=== PATIENT | male | born 1945 | race Caucasian/White ===

== ENCOUNTER 2018-08-12 11:46 | Inpatient (IN) ==
--- NOTE | 2018-08-12 11:56 | Emergency Department Note ---
ED Disposition Clinical Impression: Hypoxia, Pulmonary nodules Pneumonia Qualifiers: Pneumonia type: due to unspecified organism Laterality: bilateral Lung location: unspecified part of lung Qualified Code(s): J18.9 - Pneumonia, unspecified organism Disposition: Admitted As Inpatient Condition on Discharge: Fair Referrals: Provider,Referral, [Primary Care Provider] - - Critical Care Critical Care Time: No Attestation: On , the high probability of a clinically significant, sudden or life threatening deterioration of the following system(s) required my full and direct attention, intervention and personal management. The time I documented below is in addition to time spent performing reported procedures but includes the following listed in this critical care notation. Medical Decision Making - [place] Inquiry Pt receiving controlled substance: No Vital Signs: 08/12/18 11:47 08/12/18 12:15 08/12/18 12:17 Temperature 98.2 F Temperature Source Oral Pulse Rate [Right Radial] 79 77 Respiratory Rate 22 18 Blood Pressure [Right Arm] 125/72 133/69 Blood Pressure Mean [Right Arm] 89 90 Blood Pressure Source [Right Arm] Automatic Cuff Automatic Cuff Blood Pressure Position [Right Arm] Sitting Sitting 02 Sat by Pulse Oximetry 83 L 83 L 94 L Oxygen Delivery Method Room Air Room Air Nasal Cannula Oxygen Flow Rate (LPM) 2 2 08/12/18 12:30 08/12/18 13:00 Temperature Temperature Source Pulse Rate [Right Radial] 77 76 Respiratory Rate Blood Pressure [Right Arm] 133/69 115/63 Blood Pressure Mean [Right Arm] 90 80 Blood Pressure Source [Right Arm] Blood Pressure Position [Right Arm] 02 Sat by Pulse Oximetry 93 L 94 L Oxygen Delivery Method Nasal Cannula Oxygen Flow Rate (LPM) - Lab Data Lab Results 08/12/18 12:05: WBC 12.8 H, RBC 3.56 L, Hgb 10.4 L, Hct 32.0 L, MCV 89.8, MCH 29.1, MCHC 32.4, RDW 17.2, Plt Count 391, MPV 6.9 L, Neut % (Auto) 74.1, Lymph % (Auto) 10.3, [place] % (Auto) 6.6, Eos % (Auto) 8.8, Baso % (Auto) 0.2, Neut # ( Auto) 9.5 H, Lymph # (Auto) 1.3, [place] # (Auto) 0.9, Eos # (Auto) 1.1 H, Baso # (Auto) 0.0 08/12/18 12:05: Sodium 142, Potassium 3.8, Chloride 107, Carbon Dioxide 24, Anion Gap 14.8, BUN 19 H, Creatinine 1.44 H, Estimated Creat Clear 48, Estimated GFR 48 L, Est GFR ( Amer) 58 L, Glucose 102, Calcium 9.0, Total Bilirubin 0.4, AST 16, ALT 23, Alkaline Phosphatase 72, Troponin I < 0.02, Total Protein 6.7, Albumin 3.0 L, Globulin 3.7 H, Albumin/Globulin Ratio 0.8 L 08/12/18 12:05: Lactate 0.8 Result diagrams: 08/12/18 12:05 08/12/18 12:05 Orders (Tests/Meds): ED MEDICATIONS Generic Name Dose Route Start Last Admin Trade Name Freq PRN Reason Stop Dose Admin Azithromycin 500 mg/ Sodium 250 mls @ 250 mls/hr 08/12/18 13:30 Chloride IV 08/26/18 13:29 Q24H ABBIE Protocol Ceftriaxone Sodium 1 gm/ 50 mls @ 100 mls/hr 08/12/18 13:30 Sodium Chloride IV 08/26/18 13:29 Q24H ABBIE Protocol ORDERS Category Date Time Status XR chest 2V Stat Exams 08/12/18 11:57 Taken BNP [B-Type Natriuretic Peptide] Stat Lab 08/12/18 12:17 Ordered Blood Culture Stat Micro 08/12/18 12:15 Ordered - Radiology Data #1 Image(s): Chest Image Reviewed: Yes I reviewed the patient's radiology image, Yes I discussed the image results w/the radiologist Compared to 07/28/2018, worse patchy infiltrates bilaterally. More prominent peripherally and more prominent in the right lung. - ECG Data Tracing #1 EKG interpreted by eDan Frazier MD: Rhythm: sinus Rate: 79 [place]: normal Ectopy: none Conduction: normal ST Segment Changes: none T Wave Changes: none Q Waves: none No evidence of acute ischemia or injury Normal electrocardiogram - Physician Consults Physician Consulted: Xiomara Time: 13:35 Reason -: Admission Comment/Response: Agrees to admit the patient to the hospital. We discussed the patient's clinical information, including history, exam, laboratory and radiology results and ED course. Per hospital procedure, I will write temporary bridge inpatient orders on the patient. Specific orders requested by the admitting physician: cont tx for pneumonia Medical Decision Narrative: Review of previous visits shows that he was hypoxic when he presented on his las t visit, pulse ox 85%. He had a CT angiogram that was negative for pulmonary embolism: ------IMPRESSION-------- 1. Scattered small pulmonary nodules bilaterally. ..There are few New pulmonary nodules bilaterally vs 2016, along with some several previously existing pulmonary nodules and chronic changes. .... One of the larger new nodule at posterior RLL right lung base now measuring 9 mm in size.This size warrants further evaluation. CT chest or consideration of histologic sampling .... Suggest pulmonary consult, for workup of these nodules along with other findings discussed below..... 2. Diffuse coarsening and Increased lung markings bilaterally with compared to prior CT 2017.: ... Diffuse interstitial coarsening & mild increased pulmonary vascularity. (. Could reflect background of mild vascular congestion superimposed upon chronic changes .Warrants correlation.) ... Particularly note the Additional Patchy interstitial & alveolar opacities bilaterally, most evident about the periphery of the lung [place].. Superimposed upon chronic lung changes.;... These may indeed reflect scattered new small areas of ongoing pneumonia/pneumonitis.. Correlation required Dictated By: Oswald Fonseca Signed By: <Electronically signed by Oswald Fonseca in OV> 08/02/18 1357 General Adult HPI - General Chief complaint: Shortness of Breath/Dyspnea Stated complaint: SOA Time Seen by Provider: 08/12/18 12:08 Mode of Arrival: EMS Limitations: No Limitations Description of Symptoms (Recalled from ER Triage Doc. by RN): Pt reports became more SOA than normal while making his coffee this morning. Pt reports he was treated for pneumonia in July of this year and reports he doens't think he got over it. Pt reports he was treated with Levaquin and took all of his medication. Pt also reports feeling tired "everyday" - History of Present Illness HPI narrative: Brought in by ambulance for trouble breathing. States that he was seen in the emergency department here on 07/29/2018 for shortness of breath and diagnosed with pneumonia. Discharged on antibiotics and an inhaler. States he does not think he ever got over it. Has been short of breath ever since then. Recently has also become very fatigued and weak. Today he says he also got very dizzy while making coffee. Has not had any follow-up since he was seen here. He is a former smoker, quit many years ago. Occasional chest pains in his left anterior chest, none currently. He says he did not have a cough when he was seen here on 07/29/2018, but now has a cough for the past couple of days. No sputum, hemoptysis, or fever. No vomiting or diarrhea. - Related Data Home Medications Medication Instructions Recorded Confirmed Atorvastatin Calcium [Atorvastatin 10 mg PO DAILY 07/28/18 08/12/18 10mg Tab] Celecoxib 200 mg PO DAILY 07/28/18 08/12/18 Fluticasone Propionate 16 gm * DAILY 07/28/18 07/28/18 Levobunolol HCl [Betagan 0.5% 10mL 0.5 % EYE-BOTH DAILY 07/28/18 07/28/18 opth nicolette] Metoprolol Tartrate 50 mg PO DAILY 07/28/18 08/12/18 Sertraline HCl [Zoloft 50mg tablet] 50 mg PO DAILY 07/28/18 08/12/18 metHOTREXate sodium [metHOTREXate 17.5 mg PO WEEKLY 07/28/18 08/12/18 2.5mg Tablet] Aspirin [Aspir-Low] 81 mg PO DAILY 08/12/18 08/12/18 Esomeprazole Magnesium 40 mg PO DAILY 08/12/18 08/12/18 predniSONE [Prednisone 5mg 5 mg PO DAILY 08/12/18 08/12/18 Tab] Previous Rx's Medication Instructions Recorded Albuterol Sulfate [Albuterol HFA 2 puffs IH Q6HP PRN #1 inh 07/28/18 Inhaler] Allergies Allergy/AdvReac Type Severity Reaction Status Date / Time aspirin [ASPIRIN] AdvReac Mild Verified 08/12/18 11:59 [facility] History - Hepatitis A Screen Drug use history?: No High risk sexual behaviors?: No History of sexually transmitted infection?: No Currently employed?: No Childcare worker?: No Do you have indoor plumbing?: Yes Do you have electricity?: Yes Attestation statement:: This patient has been screened for Hepatitis A risk factors. I have reviewed the patient's past medical history: Yes Medical History: Reports:: Chronic Obstructive Pulmonary Disease (COPD), Myocardial Infarction Other Surgeries: Yes: CABG Amputation: No Fractures: No - Social History Smoking Status: Former smoker Alcohol Intake: never Alcohol Intake Frequency:: 0-2 drinks per day Substance Use Type: denies use Occupational Status: retired Housing: apartment Household Members: none Family Hx:: No significant family history ROS Obtained: Yes All systems reviewed & no additional complaints - Constitutional Constitutional: Reports fatigue, Denies fever(s) - Cardiovascular Cardiovascular: Reports chest pain, Denies pedal edema - Respiratory Respiratory: Yes cough, Yes non-productive cough, Yes dyspnea, No coughing up blood - Gastrointestinal Gastrointestingal: Denies: abdominal pain, diarrhea, vomiting Physical Exam - General General appearance: alert, in no apparent distress - Head Head exam: atraumatic, normocephalic - Eye Eye exam: Present: normal appearance, EOMI - ENT ENT exam: Present: mucous membranes moist - Neck Neck exam: Present: normal inspection, trachea midline - Chest Chest inspection: Present: normal inspection, symmetric chest wall rise - Respiratory Respiratory exam: Present: normal lung sounds bilaterally. Absent: respiratory distress, accessory muscle use - Cardiovascular Cardiovascular exam: Present: regular rate, normal rhythm, normal heart sounds - Abdominal Exam Abdominal exam: Present: soft. Absent: distention, tenderness, guarding - Extremities Exam Extremities exam: Present: normal inspection. Absent: pedal edema, calf tenderness - Neurological Exam Neurological exam: Present: alert, oriented X3 - Psychiatric Psychiatric exam: Present: normal affect, normal mood - Skin Skin exam: Present: warm, dry
[2018-08-12 12:23] LABS: Basophils % 0.2 % (0.1-2.0); Eosinophils # 1.1 K/mm3 (0.0-0.4); Eosinophils % 8.8 % (0.1-12.0); Hemoglobin 10.4 g/dL (14.1-18.0); Lymphocytes # 1.3 K/mm3 (0.7-4.5); Lymphocytes % 10.3 % (10-50); Mean Corpuscular HGB Conc 32.4 g/dL (31.8-35.4); Mean Corpuscular Hemoglobin 29.1 pg (27.0-31.2); Mean Corpuscular Volume 89.8 fl (80-94); Mean Platelet Volume 6.9 fl (7.4-10.4); Monocytes # 0.9 K/mm3 (0.1-1.0); Monocytes % 6.6 % (1.7-9.3); Neutrophils # 9.5 K/mm3 (1.8-7.8); Neutrophils % 74.1 % (37.0-80.0); Platelet Count 391 K/mm3 (142-424); Red Blood Count 3.56 M/mm3 (4.60-6.20); Red Cell Distribution Width 17.2 % (11.5-17.5); White Blood Count 12.8 K/mm3 (4.8-10.8)
[2018-08-12 12:36] LABS: Alanine Aminotransferase 23 U/L (12-78); Albumin/Globulin Ratio 0.8 (1.1-1.8); Alkaline Phosphatase 72 U/L (46-116); Anion Gap 14.8 mEq/L (5-15); Aspartate Amino Transferase 16 U/L (15-37); Bilirubin,Total 0.4 mg/dL (0.2-1.0); Blood Urea Nitrogen 19 mg/dL (7-18); Carbon Dioxide 24 mmol/L (21.0-32.0); Chloride 107 mmol/L (98-107); Globulin 3.7 gm/dl (1.3-3.2); Glucose 102 mg/dL (74-106); Potassium 3.8 mmoL/L (3.5-5.1); Sodium 142 mmol/L (136-145); Total Protein,Serum 6.7 gm/dL (6.4-8.2)
--- NOTE | 2018-08-12 14:49 | Pharmacy Consult Notes ---
[facility] Pharmacy VTE Monitoring - Patient Demographics Admission date: 08/12/18 Report Date: 08/12/18 Time: 14:49 Allergies/Adverse Reactions: Patient Allergies aspirin [ASPIRIN] Adverse Reaction (Mild, Verified 08/12/18 11:59) Height: 1.8 m Weight: 70.789 kg Patient Problems: Current Active Problems (Updated 08/12/18 @ 13:36 by Dean Frazier MD) Pneumonia (Acute) Hypoxia (Acute) Pulmonary nodules (Acute) - VTE Risk Labs: VTE Related Lab Results Hgb 10.4 g/dL (14.1-18.0) L 08/12/18 12:05 Hct 32.0 % (42.0-52.0) L 08/12/18 12:05 Plt Count 391 K/mm3 (142-424) 08/12/18 12:05 BUN 19 mg/dL (7-18) H 08/12/18 12:05 Creatinine 1.44 mg/dL (0.70-1.30) H 08/12/18 12:05 Estimated Creat Clear 48 mL/min (50-200) 08/12/18 12:05 - Prophylaxis VTE Prophylaxis Ordered?: Yes Types of VTE Prophylaxis: TEDS Knee High Location of Applied Device: Bilateral Lower Extremeties
--- NOTE | 2018-08-12 16:27 | History & Physical Report ---
*Admission Date: 08/12/18 <Herminia Araujo - 08/12/18 16:27> *Chief complaint: SOA, cough <VanStuarta 08/12/18 16:27> *History of present illness: Mr. Ruiz is a 73-year-old male who states he has been feeling poorly for a few weeks. He was seen in the office of [facility] of the end of June and diagnosed with a maxillary sinusitis and a pulmonary nodule. He was started on Levaquin and was continued on his prednisone. A CT of the chest was ordered. He states he began coughing and feeling poorly and presented to the emergency room on 07/28/18. He had a chest x- ray showing a subtle area of density at the periphery of the lung [place]. Radiology felt it was difficult to exclude an infiltrate. They felt the small areas of nodularity appeared stable. He had a CTA at this time as well which showed scattered small pulmonary nodules bilaterally. There were a few new pulmonary nodules compared to a 2016 image. Radiology recommended pulmonary consult. There was also diffuse coarsening and increased lung markings bilaterally. They felt this could indicate mild vascular congestion versus areas of ongoing pneumonia/pneumonitis. Polly did discuss the CT with the patient and was going to schedule a pulmonology follow-up. He states he was given antibiotics in the emergency room and was sent home on antibiotics. He began feeling better until the past 4-5 days when he developed shortness of air and a nonproductive cough. He presented back to the emergency room and his white blood cell count was elevated, he was mildly dehydrated, and he appeared to have a pneumonia. He was therefore admitted for further evaluation and treatment. <Herminia Araujo - 08/12/18 16:48> [facility] History Medical History: Reports:: Chronic Obstructive Pulmonary Disease (COPD), Coronary Artery Disease, Depression, Gastroesophageal Reflux Disease(GERD), Hyperlipidemia, Hypertension, Myocardial Infarction Denies:: Diabetes Mellitus Type 1, Diabetes Mellitus Type 2 <Herminia Araujo 08/12/18 16:48> *Have you ever received a pneumonia vaccine?: Yes <Herminia Araujo 08/12/18 16:27> *Have you received a flu vaccine this season?: Yes <Herminia Araujo 08/12/18 16:27> Other Medical History: Reports: Anemia, Cataracts, Glaucoma, Other (RA, colon polyps) <Herminia Araujo 08/12/18 16:48> Laterality Cases: Right: Cataract <Herminia Araujo 08/12/18 16:48> Other Surgeries: Yes: CABG, Colonoscopy, Other (right hand, right elbow) <Herminia Araujo 08/12/18 16:48> Amputation: No <Herminia Araujo 08/12/18 16:27> Fractures: No <Herminia Araujo 08/12/18 16:27> - *Social History Educational Level: Attended High School <Herminia Araujo 08/12/18 16:27> Smoking Status: Former smoker <Herminia Araujo 08/12/18 16:27> Tobacco Type: cigarettes <Herminia Araujo 08/12/18 16:27> Alcohol Intake: former <Herminia Araujo 08/12/18 16:27> Alcohol Intake Frequency:: other <Herminia Araujo 08/12/18 16:27> Substance Use Type: denies use <Herminia Araujo 08/12/18 16:27> *Occupational Status:: retired <Herminia Araujo 08/12/18 16:27> Housing: apartment <Herminia Araujo 08/12/18 16:27> Household Members: none <Herminia Araujo 08/12/18 16:27> *Travel in the last 8 weeks: None <Herminia Araujo 08/12/18 16:27> - Psychiatric History Expresses thoughts of harming self/others: None <Herminia Araujo 08/12/18 16:27> Suicide Plan Description: No Plan <Herminia Araujo 08/12/18 16:27> Family Hx:: Cancer, Heart Attack <Herminia Araujo 08/12/18 16:48> Review of Systems - Constitutional Reports fatigue, Reports weakness, Denies fever(s) <Herminia Araujo 08/12/18 16:27> - Eyes Denies blurry vision, Denies double vision <Herminia Araujo 08/12/18 16:27> - ENT Reports nasal congestion, Denies sore throat <Herminia Araujo 08/12/18 16:27> - *Cardiovascular Denies chest pain, Denies leg swelling, Denies rapid, pounding, or irregular heartbeat <Herminia Araujo 08/12/18 16:27> - *Respiratory Reports cough, Reports shortness of breath <Herminia Araujo 08/12/18 16:27> - *Gastrointestinal Denies abdominal pain, Denies loose stools, Denies nausea, Denies vomiting <Herminia Araujo 08/12/18 16:27> - *Genitourinary Denies difficulty urinating, Denies painful urination <Herminia Araujo 08/12/18 16:27> - *Musculoskeletal Denies joint pain, Denies muscle weakness <[facility] 08/12/18 16:27> - *Neurologic Reports weakness, Denies headache(s), Denies dizziness <Herminia Araujo 08/12/18 16:27> Meds Home Medications Medication Instructions Recorded Confirmed Type Albuterol Sulfate [Albuterol HFA 2 puffs IH Q6HP PRN #1 inh 07/28/18 08/12/18 Rx Inhaler] Atorvastatin Calcium [Atorvastatin 10 mg PO HS 07/28/18 08/12/18 History 10mg Tab] Celecoxib 200 mg PO DAILY 07/28/18 08/12/18 History Fluticasone Propionate 1 spray NS BID 07/28/18 08/12/18 History Levobunolol HCl [Betagan 0.5% 10mL 1 drop EYE-BOTH BID 07/28/18 08/12/18 History opth nicolette] Metoprolol Tartrate 50 mg PO BID 07/28/18 08/12/18 History Sertraline HCl [Zoloft 50mg tablet] 50 mg PO DAILY 07/28/18 08/12/18 History metHOTREXate sodium [metHOTREXate 17.5 mg PO WEEKLY 07/28/18 08/12/18 History 2.5mg Tablet] Aspirin [Aspir-Low] 81 mg PO DAILY 08/12/18 08/12/18 History Esomeprazole Magnesium 40 mg PO DAILY 08/12/18 08/12/18 History Folic Acid [Folic Acid 1mg tablet] 1 mg PO DAILY 08/12/18 08/12/18 History Loratadine [Claritin 10mg Tablet] 10 mg PO DAILY 08/12/18 08/12/18 History Montelukast Sodium [Montelukast 10 mg PO HS 08/12/18 08/12/18 History 10mg Tab] predniSONE [Prednisone 5mg 5 mg PO DAILY 08/12/18 08/12/18 History Tab] <Jean Solano - 08/12/18 18:08> Allergies Allergy/AdvReac Type Severity Reaction Status Date / Time aspirin [ASPIRIN] AdvReac Mild Verified 08/12/18 11:59 <Jean Solano - 08/12/18 18:08> Exam Vital signs and Labs for Last 24 Hours: Temp Pulse Resp BP Pulse Ox 97.9 F 81 18 127/62 95 08/12/18 16:00 08/12/18 16:00 08/12/18 16:00 08/12/18 16:00 08/12/18 16:00 Laboratory Results - last 24 hr 08/12/18 12:05: WBC 12.8 H, RBC 3.56 L, Hgb 10.4 L, Hct 32.0 L, MCV 89.8, MCH 29.1, MCHC 32.4, RDW 17.2, Plt Count 391, MPV 6.9 L, Neut % (Auto) 74.1, Lymph % (Auto) 10.3, [place] % (Auto) 6.6, Eos % (Auto) 8.8, Baso % (Auto) 0.2, Neut # (Auto) 9.5 H, Lymph # (Auto) 1.3, [place] # (Auto) 0.9, Eos # (Auto) 1.1 H, Baso # (Auto) 0.0 08/12/18 12:05: Sodium 142, Potassium 3.8, Chloride 107, Carbon Dioxide 24, Anion Gap 14.8, BUN 19 H, Creatinine 1.44 H, Estimated Creat Clear 48, Estimated GFR 48 L, Est GFR ( Amer) 58 L, Glucose 102, Calcium 9.0, Total Bilirubin 0.4, AST 16, ALT 23, Alkaline Phosphatase 72, Troponin I < 0.02, Total Protein 6.7, Albumin 3.0 L, Globulin 3.7 H, Albumin/Globulin Ratio 0.8 L 08/12/18 12:05: Lactate 0.8 08/12/18 12:05: B-Natriuretic Peptide 295 H <Jean Solano - 08/12/18 18:08> Temp Pulse Resp BP Pulse Ox 98.1 F 78 18 119/72 94 L 08/12/18 14:15 08/12/18 14:15 08/12/18 14:15 08/12/18 14:15 08/12/18 14:00 Laboratory Results - last 24 hr 08/12/18 12:05: WBC 12.8 H, RBC 3.56 L, Hgb 10.4 L, Hct 32.0 L, MCV 89.8, MCH 29.1, MCHC 32.4, RDW 17.2, Plt Count 391, MPV 6.9 L, Neut % (Auto) 74.1, Lymph % (Auto) 10.3, [place] % (Auto) 6.6, Eos % (Auto) 8.8, Baso % (Auto) 0.2, Neut # (Auto) 9.5 H, Lymph # (Auto) 1.3, [place] # (Auto) 0.9, Eos # (Auto) 1.1 H, Baso # (Auto) 0.0 08/12/18 12:05: Sodium 142, Potassium 3.8, Chloride 107, Carbon Dioxide 24, Anion Gap 14.8, BUN 19 H, Creatinine 1.44 H, Estimated Creat Clear 48, Estimated GFR 48 L, Est GFR ( Amer) 58 L, Glucose 102, Calcium 9.0, Total Bilirubin 0.4, AST 16, ALT 23, Alkaline Phosphatase 72, Troponin I < 0.02, Total Protein 6.7, Albumin 3.0 L, Globulin 3.7 H, Albumin/Globulin Ratio 0.8 L 08/12/18 12:05: Lactate 0.8 08/12/18 12:05: B-Natriuretic Peptide 295 H <Herminia Araujo - 08/12/18 16:27> I & O for Last 24 hours: Intake & Output 08/10/18 08/11/18 08/12/18 08/13/18 11:59 11:59 11:59 11:59 Intake Total 290 / 290 Balance 290 / 290 Weight 168 lb 156 lb 1 oz <Jean Solano - 08/12/18 18:08> Intake & Output 08/10/18 08/11/18 08/12/18 08/13/18 11:59 11:59 11:59 11:59 Intake Total 50 / 50 Balance 50 / 50 Weight 168 lb 156 lb 1 oz <[facility] 08/12/18 16:27> - Constitutional no acute distress <[facility] 08/12/18 16:27> - *Routine HEENT Exam Head: Present: normocephalic <[facility] 08/12/18 16:48> Eye: Present: EOMI, PERRL [facility] 08/12/18 16:48> ENT: Present: mucous membranes dry <[facility] 08/12/18 16:48> - *Routine Neck Exam Present: supple. Absent: lymphadenopathy [facility] 08/12/18 16:48> - *Routine Respiratory Exam Present: decreased breath sounds. Absent: wheezes <[facility] 08/12/18 16:48> - *Routine Cardiovascular Exam Present: RRR <[facility] 08/12/18 16:48> - *Routine Abdominal Exam Present: soft, normoactive bowel sounds. Absent: tenderness <[facility] 08/12/18 16:48> - *Routine Extremities Exam Absent: cyanosis, clubbing, edema <[facility] 08/12/18 16:48> - *Routine Skin Exam Present: warm. Absent: rash <[facility] 08/12/18 16:48> - *Routine Neurological Exam Present: alert, oriented X3 <[facility] 08/12/18 16:48> H&P: Result - Impressions CXR - pending <[facility] 08/12/18 16:48> Assessment and Plan (1) Pneumonia Current visit: Yes Status: Acute Qualifiers: Pneumonia type: due to unspecified organism Laterality: bilateral Lung location: unspecified part of lung Qualified Code(s): J18.9 - Pneumonia, unspecified organism Category: Medical Code(s): J18.9 - Pneumonia, unspecified organism (2) Pulmonary nodules Current visit: Yes Status: Acute Category: Medical Code(s): R91.8 - Other nonspecific abnormal finding of lung field (3) Hypoxia Current visit: Yes Status: Acute Category: Medical Code(s): R09.02 - Hypoxemia (4) Rheumatoid arthritis Current visit: Yes Status: Chronic Category: Medical Code(s): M06.9 - Rheumatoid arthritis, unspecified (5) Hypertension Current visit: Yes Status: Chronic Category: Medical Code(s): I10 - Essential (primary) hypertension (6) Hyperlipemia Current visit: Yes Status: Chronic Category: Medical Code(s): E78.5 - Hyperlipidemia, unspecified (7) Coronary artery disease Current visit: Yes Status: Chronic Category: Medical Code(s): I25.10 - Atherosclerotic heart disease of [place] coronary artery without angina pectoris <Herminia Araujo - 08/12/18 16:40> (1) Pneumonia Current visit: Yes Status: Acute Qualifiers: Pneumonia type: due to unspecified organism Laterality: bilateral Lung location: unspecified part of lung Qualified Code(s): J18.9 - Pneumonia, unspecified organism Category: Medical Code(s): J18.9 - Pneumonia, unspecified organism (2) Pulmonary nodules Current visit: Yes Status: Acute Category: Medical Code(s): R91.8 - Other nonspecific abnormal finding of lung field (3) Hypoxia Current visit: Yes Status: Acute Category: Medical Code(s): R09.02 - Hypoxemia (4) Rheumatoid arthritis Current visit: Yes Status: Chronic Category: Medical Code(s): M06.9 - Rheumatoid arthritis, unspecified (5) Hypertension Current visit: Yes Status: Chronic Category: Medical Code(s): I10 - Essential (primary) hypertension (6) Hyperlipemia Current visit: Yes Status: Chronic Category: Medical Code(s): E78.5 - Hyperlipidemia, unspecified (7) Coronary artery disease Current visit: Yes Status: Chronic Category: Medical Code(s): I25.10 - Atherosclerotic heart disease of [place] coronary artery without angina pectoris (8) Chronic steroid use Current visit: Yes Status: Acute Category: Medical <Jean Solano - 08/12/18 18:08> - Assessment and plan all Dx Assessment and Plan for all problems:: Patient seen and examined. He appears comfortable. Will order sputum culture and check Mycoplasma antigen. Due to his chronic steroid use, will escalate antibiotics to Cefepime in place of Rocephin. <Jean Solano - 08/12/18 18:08> The patient has been started on abx, oxygen, nebs, and some of his home medications. Will discuss further care with Dr. Solano. <Herminia Araujo - 08/12/18 16:48>
[2018-08-13 06:46] LABS: Basophils % 0.2 % (0.1-2.0); Eosinophils # 0.9 K/mm3 (0.0-0.4); Eosinophils % 7.7 % (0.1-12.0); Hematocrit 31.8 % (42.0-52.0); Hemoglobin 10.4 g/dL (14.1-18.0); Lymphocytes # 1.9 K/mm3 (0.7-4.5); Lymphocytes % 16.8 % (10-50); Mean Corpuscular HGB Conc 32.6 g/dL (31.8-35.4); Mean Corpuscular Hemoglobin 29.4 pg (27.0-31.2); Mean Corpuscular Volume 90.3 fl (80-94); Mean Platelet Volume 6.9 fl (7.4-10.4); Monocytes # 0.5 K/mm3 (0.1-1.0); Monocytes % 4.6 % (1.7-9.3); Neutrophils % 70.7 % (37.0-80.0); Platelet Count 381 K/mm3 (142-424); Red Blood Count 3.53 M/mm3 (4.60-6.20); Red Cell Distribution Width 17.1 % (11.5-17.5); White Blood Count 11.3 K/mm3 (4.8-10.8)
--- NOTE | 2018-08-13 08:37 | Progress Note ---
Internal Medicine - PN: Subj *Date: 08/13/18 *Time: 09:16 Interval history: Generally does not feel well. C/o general malaise, cough, arthritic pain, SOA. Had an episode of [place] with vomiting during the night. No nausea this AM. Exam Vital signs and Labs for Last 24 Hours: Temp Pulse Resp BP Pulse Ox 98.5 F 90 18 109/61 L 98 08/13/18 04:00 08/13/18 06:51 08/13/18 04:00 08/13/18 04:00 08/13/18 08:00 Laboratory Results - last 24 hr 08/12/18 12:05: WBC 12.8 H, RBC 3.56 L, Hgb 10.4 L, Hct 32.0 L, MCV 89.8, MCH 29.1, MCHC 32.4, RDW 17.2, Plt Count 391, MPV 6.9 L, Neut % (Auto) 74.1, Lymph % (Auto) 10.3, Webb % (Auto) 6.6, Eos % (Auto) 8.8, Baso % (Auto) 0.2, Neut # (Auto) 9.5 H, Lymph # (Auto) 1.3, Webb # (Auto) 0.9, Eos # (Auto) 1.1 H, Baso # (Auto) 0.0 08/12/18 12:05: Sodium 142, Potassium 3.8, Chloride 107, Carbon Dioxide 24, Anion Gap 14.8, BUN 19 H, Creatinine 1.44 H, Estimated Creat Clear 48, Estimated GFR 48 L, Est GFR ( Amer) 58 L, Glucose 102, Calcium 9.0, Total Bilirubin 0.4, AST 16, ALT 23, Alkaline Phosphatase 72, Troponin I < 0.02, Total Protein 6.7, Albumin 3.0 L, Globulin 3.7 H, Albumin/Globulin Ratio 0.8 L 08/12/18 12:05: Lactate 0.8 08/12/18 12:05: B-Natriuretic Peptide 295 H 08/12/18 12:05: Mycoplasma pneumon IgM Reactive A 08/13/18 06:33: WBC 11.3 H, RBC 3.53 L, Hgb 10.4 L, Hct 31.8 L, MCV 90.3, MCH 29.4, MCHC 32.6, RDW 17.1, Plt Count 381, MPV 6.9 L, Neut % (Auto) 70.7, Lymph % (Auto) 16.8, Webb % (Auto) 4.6, Eos % (Auto) 7.7, Baso % (Auto) 0.2, Neut # (Auto) 8.0 H, Lymph # (Auto) 1.9, Webb # (Auto) 0.5, Eos # (Auto) 0.9 H, Baso # (Auto) 0.0 I & O for Last 24 hours: Intake & Output 08/10/18 08/11/18 08/12/18 08/13/18 11:59 11:59 11:59 11:59 Intake Total 290 / 290 Output Total 225 / 225 Balance 65 / 65 Weight 168 lb 156 lb 1 oz Microbiology Reports for the Last 24 Hours: Microbiology 08/12/18 19:44 Sputum - Expectorated Sputum Gram Stain - Final Narrative: He is sitting up in the chair. No respiratory distress. Noted with dry cough. Chest reveals coarse breath sounds which are generally diminished. No rales or wheezes. Heart is regular. Abdomen soft and nondistended with diminished bowel sounds. No unusual masses or tenderness. Extremities no edema. Assessment and Plan (1) Mycoplasma pneumonia Current visit: Yes Status: Acute Category: Medical Code(s): J15.7 - Pneumonia due to Mycoplasma pneumoniae (2) Pulmonary nodules Current visit: Yes Status: Acute Category: Medical Code(s): R91.8 - Other nonspecific abnormal finding of lung field (3) Hypoxia Current visit: Yes Status: Acute Category: Medical Code(s): R09.02 - Hypoxemia (4) Rheumatoid arthritis Current visit: Yes Status: Chronic Category: Medical Code(s): M06.9 - Rheumatoid arthritis, unspecified (5) Hypertension Current visit: Yes Status: Chronic Category: Medical Code(s): I10 - Essential (primary) hypertension (6) Hyperlipemia Current visit: Yes Status: Chronic Category: Medical Code(s): E78.5 - Hyperlipidemia, unspecified (7) Coronary artery disease Current visit: Yes Status: Chronic Category: Medical Code(s): I25.10 - Atherosclerotic heart disease of [place] coronary artery without angina pectoris (8) Chronic steroid use Current visit: Yes Status: Acute Category: Medical - Assessment and plan all Dx Assessment and Plan for all problems:: 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 This covered with the Zithromax. Sputum culture pending. Continue current antibiotic regimen. Will resume PPI he takes at home. ACtivity as tolerated.
[2018-08-14 06:47] LABS: Basophils % 0.2 % (0.1-2.0); Eosinophils # 0.8 K/mm3 (0.0-0.4); Eosinophils % 9.6 % (0.1-12.0); Hemoglobin 9.5 g/dL (14.1-18.0); Lymphocytes # 1.8 K/mm3 (0.7-4.5); Lymphocytes % 21.6 % (10-50); Mean Corpuscular Hemoglobin 28.8 pg (27.0-31.2); Mean Corpuscular Volume 90.1 fl (80-94); Mean Platelet Volume 6.9 fl (7.4-10.4); Monocytes # 0.2 K/mm3 (0.1-1.0); Monocytes % 2.9 % (1.7-9.3); Neutrophils # 5.5 K/mm3 (1.8-7.8); Neutrophils % 65.6 % (37.0-80.0); Platelet Count 319 K/mm3 (142-424); Red Blood Count 3.28 M/mm3 (4.60-6.20); Red Cell Distribution Width 16.9 % (11.5-17.5); White Blood Count 8.4 K/mm3 (4.8-10.8)
[2018-08-14 06:48] LABS: Hematocrit 29.6 % (42.0-52.0)
[2018-08-14 06:55] LABS: Anion Gap 13.9 mEq/L (5-15); Calcium 8.7 mg/dL (8.5-10.1); Potassium 3.9 mmoL/L (3.5-5.1)
--- NOTE | 2018-08-14 08:39 | Progress Note ---
Internal Medicine - PN: Subj *Date: 08/14/18 *Time: 08:20 Interval history: He rested better last night and feels a little better this morning. His cough is a bit more productive. He is tolerating light activity in the room. No further nausea or vomiting. Exam Vital signs and Labs for Last 24 Hours: Temp Pulse Resp BP Pulse Ox 97.7 F 70 18 111/59 L 93 L 08/14/18 04:00 08/14/18 05:56 08/14/18 04:00 08/14/18 04:00 08/14/18 05:56 Laboratory Results - last 24 hr 08/14/18 06:26: WBC 8.4 D, RBC 3.28 L, Hgb 9.5 L, Hct 29.6 L, MCV 90.1, MCH 28.8, MCHC 32.0, RDW 16.9, Plt Count 319, MPV 6.9 L, Neut % (Auto) 65.6, Lymph % (Auto) 21.6, [place] % (Auto) 2.9, Eos % (Auto) 9.6, Baso % (Auto) 0.2, Neut # (A uto) 5.5, Lymph # (Auto) 1.8, [place] # (Auto) 0.2, Eos # (Auto) 0.8 H, Baso # (Auto) 0.0 08/14/18 06:26: Sodium 141, Potassium 3.9, Chloride 106, Carbon Dioxide 25, Anion Gap 13.9, BUN 21 H, Creatinine 1.04 D, Estimated Creat Clear 61, Estimated GFR 70, Est GFR ( Amer) 84 D, Glucose 91, Calcium 8.7 I & O for Last 24 hours: Intake & Output 08/11/18 08/12/18 08/13/18 08/14/18 11:59 11:59 11:59 11:59 Intake Total 870 / 870 360 / 360 Output Total 350 / 350 100 / 100 Balance 520 / 520 260 / 260 Weight 168 lb 156 lb 1 oz 155 lb 8 oz Microbiology Reports for the Last 24 Hours: Microbiology 08/12/18 19:44 Sputum - Expectorated Sputum Gram Stain - Final 08/12/18 19:44 Sputum - Expectorated Sputum Sputum Culture - Preliminary Narrative: He is alert and appears in no respiratory distress. Color is normal. Chest reveals coarse breath sounds and a few rhonchi. No wheezes. Heart is regular. Abdomen soft and nondistended with no tenderness. Assessment and Plan (1) Mycoplasma pneumonia Current visit: Yes Status: Acute Category: Medical Code(s): J15.7 - Pneumonia due to Mycoplasma pneumoniae (2) Pulmonary nodules Current visit: Yes Status: Acute Category: Medical Code(s): R91.8 - Other nonspecific abnormal finding of lung field (3) Hypoxia Current visit: Yes Status: Acute Category: Medical Code(s): R09.02 - Hy poxemia (4) Rheumatoid arthritis Current visit: Yes Status: Chronic Category: Medical Code(s): M06.9 - Rheumatoid arthritis, unspecified (5) Hypertension Current visit: Yes Status: Chronic Category: Medical Code(s): I10 - Essential (primary) hypertension (6) Hyperlipemia Current visit: Yes Status: Chronic Category: Medical Code(s): E78.5 - Hyperlipidemia, unspecified (7) Coronary artery disease Current visit: Yes Status: Chronic Category: Medical Code(s): I25.10 - Atherosclerotic heart disease of [place] coronary artery without angina pectoris (8) Chronic steroid use Current visit: Yes Status: Acute Category: Medical - Assessment and plan all Dx Assessment and Plan for all problems:: Subjectively looks and feels better. White blood cell count is normal. We will continue current antibiotics pending results of final sputum report which is showing a gram-positive cocci.
--- NOTE | 2018-08-15 07:29 | Progress Note ---
Internal Medicine - PN: Subj *Date: 08/15/18 *Time: 07:28 Exam Vital signs and Labs for Last 24 Hours: Temp Pulse Resp BP Pulse Ox 97.7 F 74 20 100/59 L 95 08/15/18 04:00 08/15/18 05:51 08/15/18 04:00 08/15/18 04:00 08/15/18 05:51 I & O for Last 24 hours: Intake & Output 08/12/18 08/13/18 08/14/18 08/15/18 23:59 23:59 23:59 23:59 Intake Total 290 / 290 940 / 940 840 / 840 Output Total 225 / 225 225 / 225 Balance 65 / 65 715 / 715 840 / 840 Weight 70.789 kg 71.894 kg 70.534 kg 72.32 kg Microbiology Reports for the Last 24 Hours: Microbiology 08/12/18 19:44 Sputum - Expectorated Sputum Gram Stain - Final 08/12/18 19:44 Sputum - Expectorated Sputum Sputum Culture - Preliminary 08/12/18 12:05 Blood Blood Culture - Preliminary NO GROWTH AFTER 48 HOURS Assessment and Plan (1) Mycoplasma pneumonia Current visit: Yes Status: Acute Category: Medical Code(s): J15.7 - Pneumonia due to Mycoplasma pneumoniae (2) Pulmonary nodules Current visit: Yes Status: Acute Category: Medical Code(s): R91.8 - Other nonspecific abnormal finding of lung field (3) Hypoxia Current visit: Yes Status: Acute Category: Medical Code(s): R09.02 - Hypoxemia (4) Rheumatoid arthritis Current visit: Yes Status: Chronic Category: Medical Code(s): M06.9 - Rheumatoid arthritis, unspecified (5) Hypertension Current visit: Yes Status: Chronic Category: Medical Code(s): I10 - Essential (primary) hypertension (6) Hyperlipemia Current visit: Yes Status: Chronic Category: Medical Code(s): E78.5 - Hyperlipidemia, unspecified (7) Coronary artery disease Current visit: Yes Status: Chronic Category: Medical Code(s): I25.10 - Atherosclerotic heart disease of [place] coronary artery without angina pectoris (8) Chronic steroid use Current visit: Yes Status: Acute Category: Medical The patient's infection will respond to the chosen ABx?: Yes Is the patient receiving the right drug, dose, and route?: Yes Could a more targeted ABx be ordered?: No (CLUTURES PENDING AT TIME OF DOCUMENTATION )
--- NOTE | 2018-08-15 08:37 | Progress Note ---
<Anita Rey - Last Filed: 08/16/18 05:03> Internal Medicine - PN: Subj *Date: 08/16/18 *Time: 05:03 Interval history: Feeling better today. He has a periodic cough. Denies shortness of breath except with exertion. He has been eating okay. Bowels are moving. He has been ambulating with out difficulty. Would like something for his allergies. Exam Vital signs and Labs for Last 24 Hours: Temp Pulse Resp BP Pulse Ox 98.3 F 86 18 119/62 93 L 08/15/18 07:59 08/15/18 07:59 08/15/18 07:59 08/15/18 07:59 08/15/18 07:59 I & O for Last 24 hours: Intake & Output 08/12/18 08/13/18 08/14/18 08/15/18 11:59 11:59 11:59 11:59 Intake Total 870 / 870 600 / 600 600 / 600 Output Total 350 / 350 100 / 100 760 / 760 Balance 520 / 520 500 / 500 -160 / -160 Weight 168 lb 156 lb 1 oz 155 lb 8 oz 159 lb 7 oz Microbiology Reports for the Last 24 Hours: Microbiology 08/12/18 19:44 Sputum - Expectorated Sputum Gram Stain - Final 08/12/18 19:44 Sputum - Expectorated Sputum Sputum Culture - Final Normal Respiratory Neela 08/12/18 12:05 Blood Blood Culture - Preliminary NO GROWTH AFTER 48 HOURS - Constitutional no acute distress Comments: Sitting in comfort chair at bedside. Appears comfortable - *Routine Respiratory Exam Present: CTA bilaterally (Anteriorly and posteriorly) - *Routine Cardiovascular Exam Present: RRR - *Routine Abdominal Exam Present: soft, normoactive bowel sounds. Absent: tenderness - *Routine Extremities Exam Absent: edema Comments: Varicosities - *Routine Neurological Exam Present: alert, oriented X3 Assessment and Plan (1) Mycoplasma pneumonia Status: Acute Category: Medical Code(s): J15.7 - Pneumonia due to Mycoplasma pneumoniae (2) Pulmonary nodules Status: Acute Category: Medical Code(s): R91.8 - Other nonspecific abnormal finding of lung field (3) Hypoxia Status: Acute Category: Medical Code(s): R09.02 - Hypoxemia (4) Rheumatoid arthritis Status: Chronic Category: Medical Code(s): M06.9 - Rheumatoid arthritis, unspecified (5) Hypertension Status: Chronic Category: Medical Code(s): I10 - Essential (primary) hypertension (6) Hyperlipemia Status: Chronic Category: Medical Code(s): E78.5 - Hyperlipidemia, unspecified (7) Coronary artery disease Status: Chronic Category: Medical Code(s): I25.10 - Atherosclerotic heart disease of [place] coronary artery without angina pectoris (8) Chronic steroid use Status: Acute Category: Medical (9) Environmental allergies Status: Acute Category: Medical Code(s): Z91.09 - Other allergy status, other than to drugs and biological substances - Assessment and plan all Dx Assessment and Plan for all problems:: Will start back on Flonase and Claritin. Will repeat chest x-ray today. <Jean Solano - Last Filed: 08/16/18 17:34> Internal Medicine - PN: Subj *Date: 08/16/18 *Time: 17:34 Exam Vital signs and Labs for Last 24 Hours: Temp Pulse Resp BP Pulse Ox 97.9 F 78 19 123/72 91 L 08/16/18 07:57 08/16/18 09:44 08/16/18 07:57 08/16/18 07:57 08/16/18 08:00 I & O for Last 24 hours: Intake & Output 08/14/18 08/15/18 08/16/18 08/17/18 11:59 11:59 11:59 11:59 Intake Total 600 / 600 600 / 600 1060 / 1060 Output Total 100 / 100 760 / 760 Balance 500 / 500 -160 / -160 1060 / 1060 Weight 155 lb 8 oz 159 lb 7 oz 160 lb Assessment and Plan (1) Mycoplasma pneumonia Status: Acute Category: Medical Code(s): J15.7 - Pneumonia due to Mycoplasma pneumoniae (2) Pulmonary nodules Status: Acute Category: Medical Code(s): R91.8 - Other nonspecific abnormal finding of lung field (3) Hypoxia Status: Acute Category: Medical Code(s): R09.02 - Hypoxemia (4) Rheumatoid arthritis Status: Chronic Category: Medical Code(s): M06.9 - Rheumatoid arthritis, unspecified (5) Hypertension Status: Chronic Category: Medical Code(s): I10 - Essential (primary) hypertension (6) Hyperlipemia Status: Chronic Category: Medical Code(s): E78.5 - Hyperlipidemia, unspecified (7) Coronary artery disease Status: Chronic Category: Medical Code(s): I25.10 - Atherosclerotic heart disease of [place] coronary artery without angina pectoris (8) Chronic steroid use Status: Acute Category: Medical (9) Environmental allergies Status: Acute Category: Medical Code(s): Z91.09 - Other allergy status, other than to drugs and biological substances - Assessment and plan all Dx Assessment and Plan for all problems:: Patient seen and examined this AM. Concur with assessment and plan.
--- NOTE | 2018-08-16 07:54 | Progress Note ---
<Anita Rey - Last Filed: 08/16/18 07:51> Internal Medicine - PN: Subj *Date: 08/16/18 *Time: 07:51 Interval history: Patient states he feels "pretty good" he slept just fine. He is ready to go home. Cough is minimal. He ambulated in the [place] without difficulty yesterday. Bowels are working normally. He is voiding QS. Exam Vital signs and Labs for Last 24 Hours: Temp Pulse Resp BP Pulse Ox 98.1 F 82 17 97/41 L 93 L 08/16/18 03:54 08/16/18 05:46 08/16/18 03:54 08/16/18 03:54 08/16/18 05:46 I & O for Last 24 hours: Intake & Output 08/13/18 08/14/18 08/15/18 08/16/18 11:59 11:59 11:59 11:59 Intake Total 870 / 870 600 / 600 600 / 600 820 / 820 Output Total 350 / 350 100 / 100 760 / 760 Balance 520 / 520 500 / 500 -160 / -160 820 / 820 Weight 156 lb 1 oz 155 lb 8 oz 159 lb 7 oz 160 lb Microbiology Reports for the Last 24 Hours: Microbiology 08/12/18 19:44 Sputum - Expectorated Sputum Gram Stain - Final 08/12/18 19:44 Sputum - Expectorated Sputum Sputum Culture - Final Normal Respiratory Neela Radiology Reports for the Last 24 Hours: 08/15/2018 repeat chest x-ray IMPRESSION:.......... 1. right lower lobe infiltrate persists. Slightly more evident & extensive low-density right lower lobe infiltrate, with interstitial component slight more evident today. 2. However other areas of shown improvement bilaterally ... Prior coarsening of markings at left lung centrally along with the minimal infiltrate left upper lobe and shown regression and improvement .... Improvement of subtle patchy infiltrates right upper lung as well - Constitutional no acute distress Comments: Sitting on bedside and has completed his breakfast - *Routine Respiratory Exam Comments: Few bibasilar crackles - *Routine Cardiovascular Exam Present: RRR - *Routine Abdominal Exam Present: soft, normoactive bowel sounds. Absent: tenderness - *Routine Extremities Exam Absent: edema, calf tenderness - *Routine Neurological Exam Present: alert, oriented X3 Assessment and Plan (1) Mycoplasma pneumonia Status: Acute Category: Medical Code(s): J15.7 - Pneumonia due to Mycoplasma pneumoniae (2) Pulmonary nodules Status: Acute Category: Medical Code(s): R91.8 - Other nonspecific abnormal finding of lung field (3) Hypoxia Status: Acute Category: Medical Code(s): R09.02 - Hypoxemia (4) Rheumatoid arthritis Status: Chronic Category: Medical Code(s): M06.9 - Rheumatoid arthritis, unspecified (5) Hypertension Status: Chronic Category: Medical Code(s): I10 - Essential (primary) hypertension (6) Hyperlipemia Status: Chronic Category: Medical Code(s): E78.5 - Hyperlipidemia, unspecified (7) Coronary artery disease Status: Chronic Category: Medical Code(s): I25.10 - Atherosclerotic heart disease of [place] coronary artery without angina pectoris (8) Chronic steroid use Status: Acute Category: Medical (9) Environmental allergies Status: Acute Category: Medical Code(s): Z91.09 - Other allergy status, other than to drugs and biological substances - Assessment and plan all Dx Assessment and Plan for all problems:: Will discharge home today on antibiotics and follow-up in the office of [facility]. <Jean Solano - Last Filed: 08/16/18 17:43> Internal Medicine - PN: Subj *Date: 08/16/18 *Time: 17:35 Exam Vital signs and Labs for Last 24 Hours: Temp Pulse Resp BP Pulse Ox 97.9 F 78 19 123/72 91 L 08/16/18 07:57 08/16/18 09:44 08/16/18 07:57 08/16/18 07:57 08/16/18 08:00 I & O for Last 24 hours: Intake & Output 08/14/18 08/15/18 08/16/18 08/17/18 11:59 11:59 11:59 11:59 Intake Total 600 / 600 600 / 600 1060 / 1060 Output Total 100 / 100 760 / 760 Balance 500 / 500 -160 / -160 1060 / 1060 Weight 155 lb 8 oz 159 lb 7 oz 160 lb Assessment and Plan (1) Mycoplasma pneumonia Status: Acute Category: Medical Code(s): J15.7 - Pneumonia due to Mycoplasma pneumoniae (2) Pulmonary nodules Status: Acute Category: Medical Code(s): R91.8 - Other nonspecific abnormal finding of lung field (3) Hypoxia Status: Acute Category: Medical Code(s): R09.02 - Hypoxemia (4) Rheumatoid arthritis Status: Chronic Category: Medical Code(s): M06.9 - Rheumatoid arthritis, unspecified (5) Hypertension Status: Chronic Category: Medical Code(s): I10 - Essential (primary) hypertension (6) Hyperlipemia Status: Chronic Category: Medical Code(s): E78.5 - Hyperlipidemia, unspec ified (7) Coronary artery disease Status: Chronic Category: Medical Code(s): I25.10 - Atherosclerotic heart disease of [place] coronary artery without angina pectoris (8) Chronic steroid use Status: Acute Category: Medical (9) Environmental allergies Status: Acute Category: Medical Code(s): Z91.09 - Other allergy status, other than to drugs and biological substances - Assessment and plan all Dx Assessment and Plan for all problems:: Patient seen and examined this AM. He is feeling better and eager to go home. CXR has improved. Will discharge home on Biaxin and f/u in 1 week. Will also work on getting outpt pulmonology consult.
--- NOTE | 2018-08-16 09:35 | Progress Note ---
Internal Medicine - PN: Subj *Date: 08/16/18 *Time: 09:34 Exam Vital signs and Labs for Last 24 Hours: Temp Pulse Resp BP Pulse Ox 97.9 F 97 H 19 123/72 91 L 08/16/18 07:57 08/16/18 07:57 08/16/18 07:57 08/16/18 07:57 08/16/18 07:57 I & O for Last 24 hours: Intake & Output 08/13/18 08/14/18 08/15/18 08/16/18 23:59 23:59 23:59 23:59 Intake Total 940 / 940 840 / 840 820 / 820 240 / 240 Output Total 225 / 225 760 / 760 Balance 715 / 715 840 / 840 60 / 60 240 / 240 Weight 71.894 kg 70.534 kg 72.121 kg 72.575 kg Microbiology Reports for the Last 24 Hours: Microbiology 08/12/18 19:44 Sputum - Expectorated Sputum Gram Stain - Final 08/12/18 19:44 Sputum - Expectorated Sputum Sputum Culture - Final Normal Respiratory Neela Assessment and Plan (1) Mycoplasma pneumonia Current visit: Yes Status: Acute Category: Medical Code(s): J15.7 - Pneumonia due to Mycoplasma pneumoniae (2) Pulmonary nodules Current visit: Yes Status: Acute Category: Medical Code(s): R91.8 - Other nonspecific abnormal finding of lung field (3) Hypoxia Current visit: Yes Status: Acute Category: Medical Code(s): R09.02 - Hypoxemia (4) Rheumatoid arthritis Current visit: Yes Status: Chronic Category: Medical Code(s): M06.9 - Rheumatoid arthritis, unspecified (5) Hypertension Current visit: Yes Status: Chronic Category: Medical Code(s): I10 - Essential (primary) hypertension (6) Hyperlipemia Current visit: Yes Status: Chronic Category: Medical Code(s): E78.5 - Hyperlipidemia, unspecified (7) Coronary artery disease Current visit: Yes Status: Chronic Category: Medical Code(s): I25.10 - Atherosclerotic heart disease of [place] coronary artery without angina pectoris (8) Chronic steroid use Current visit: Yes Status: Acute Category: Medical (9) Environmental allergies Current visit: Yes Status: Acute Category: Medical Code(s): Z91.09 - Other allergy status, other than to drugs and biological substances The patient's infection will respond to the chosen ABx?: Yes Is the patient receiving the right drug, dose, and route?: Yes Could a more targeted ABx be ordered?: No (PATIENT IMPROVING PER CHEST XRAY, WBC IMPROVING, AFEBRILE)
--- NOTE | 2018-08-16 21:59 | Discharge Summary ---
General - General Admission date:: 08/12/18 Discharge date: 08/16/18 HPI HPI: Mr. Ruiz is a 73-year-old male who stated he had been feeling poorly for a few weeks. He was seen in the office of [facility] of the end of June and diagnosed with a maxillary sinusitis and a pulmonary nodule. He was started on Levaquin and was continued on his prednisone. A CT of the chest was ordered. He states he began coughing and feeling poorly and presented to the emergency room on 07/28/18. He had a chest x-ray showing a subtle area of density at the periphery of the lung galeana. Radiology felt it was difficult to exclude an infiltrate. They felt the small areas of nodularity appeared stable. He had a CTA at this time as well which showed scattered small pulmonary nodules bilaterally. There were a few new pulmonary nodules compared to a 2016 image. Radiology recommended pulmonary consult. There was also diffuse coarsening and increased lung markings bilaterally. They felt this could indicate mild vascular congestion versus areas of ongoing pneumonia/pneumonitis. Polly did discuss the CT with the patient and was going to schedule a pulmonology follow- up. He stated he was given antibiotics in the emergency room and was sent home on antibiotics. He began feeling better until 4-5 days prior to admission when he developed shortness of air and a nonproductive cough. He presented back to the emergency room and his white blood cell count was elevated, he was mildly dehydrated, and he appeared to have a pneumonia. He was therefore admitted for further evaluation and treatment. Hospital Course Hospital Course: The patient was started on antibiotics, oxygen, nebs, and some of his home medications. A sputum culture as well as a mycoplasma antigen were ordered as well. Due to his chronic steroid use, his antibiotics were escalated to cefepime in place of Rocephin. His chest x-ray showed slight progression of subtle patchy peripheral infiltrates bilaterally particularly evident at the right lung. He did have general malaise, arthritic pain, nausea, and an episode of vomiting. His mycoplasma antigen was positive and this was covered with Zithromax. He slowly began feeling better. His cough became more productive but he was able to tolerate activity in his room. He had no further nausea or vomiting. His white blood cell count was normal. A repeat chest x-ray showed a right lower lobe infiltrate that persisted. It was slightly more evident and extensive. The other areas of pneumonia had shown improvement. The patient was able to ambulate in the esparza without difficulty and he was feeling much better. He was anxious to go home. His sputum culture showed only normal respiratory heath. He was stable to be discharged home on Biaxin and will follow up in the office of [facility] in 1 week. Will also work on getting outpatient pulmonary consult. Objective Vital signs: Temp Pulse Resp BP Pulse Ox 97.9 F 78 19 123/72 91 L 08/16/18 07:57 08/16/18 09:44 08/16/18 07:57 08/16/18 07:57 08/16/18 08:00 Narrative: - Constitutional no acute distress Comments: Sitting on bedside and has completed his breakfast - *Routine Respiratory Exam Comments: Few bibasilar crackles - *Routine Cardiovascular Exam Present: RRR - *Routine Abdominal Exam Present: soft, normoactive bowel sounds. Absent: tenderness - *Routine Extremities Exam Absent: edema, calf tenderness - *Routine Neurological Exam Present: alert, oriented X3 Results Labs on day of discharge: Preliminary micro results at discharge 08/12/18 12:05 Blood Culture - Preliminary Blood NO GROWTH AFTER 48 HOURS DS: Diagnosis - Discharge Diagnosis (1) Mycoplasma pneumonia Status: Acute (2) Pulmonary nodules Status: Acute (3) Hypoxia Status: Acute (4) Rheumatoid arthritis Status: Chronic (5) Hypertension Status: Chronic (6) Hyperlipemia Status: Chronic (7) Coronary artery disease Status: Chronic (8) Chronic steroid use Status: Acute (9) Environmental allergies Status: Acute Discharge Plan - Patient Discharge Instructions Patient Instructions: DI for Pneumonia -- Adult - Follow up Plan Follow up with: Jean Solano MD [Staff Physician] - 08/22/18 (in [facility]) Disposition: Home, Self-Snf Medications: Home Medications Medication Instructions Recorded Confirmed Type Albuterol Sulfate [Albuterol HFA 2 puffs IH Q6HP PRN #1 inh 07/28/18 08/12/18 Rx Inhaler] Atorvastatin Calcium [Atorvastatin 10 mg PO HS 07/28/18 08/12/18 History 10mg Tab] Celecoxib 200 mg PO DAILY 07/28/18 08/12/18 History Fluticasone Propionate 1 spray NS BID 07/28/18 08/12/18 History Levobunolol HCl [Betagan 0.5% 10mL 1 drop EYE-BOTH BID 07/28/18 08/12/18 History opth nicolette] Metoprolol Tartrate 50 mg PO BID 07/28/18 08/12/18 History Sertraline HCl [Zoloft 50mg tablet] 50 mg PO DAILY 07/28/18 08/12/18 History metHOTREXate sodium [metHOTREXate 17.5 mg PO WEEKLY 07/28/18 08/12/18 History 2.5mg Tablet] Aspirin [Aspir-Low] 81 mg PO DAILY 08/12/18 08/12/18 History Esomeprazole Magnesium 40 mg PO DAILY 08/12/18 08/12/18 History Folic Acid [Folic Acid 1mg tablet] 1 mg PO DAILY 08/12/18 08/12/18 History Loratadine [Claritin 10mg Tablet] 10 mg PO DAILY 08/12/18 08/12/18 History Montelukast Sodium [Montelukast 10 mg PO HS 08/12/18 08/12/18 History 10mg Tab] predniSONE [Prednisone 5mg 5 mg PO DAILY 08/12/18 08/12/18 History Tab] Clarithromycin [Biaxin 500mg 500 mg PO BID #14 tab 08/16/18 Rx Tablet] Prescriptions/Medication Reconciliation: New Clarithromycin [Biaxin 500mg Tablet] 500 mg PO BID #14 tab Continued Metoprolol Tartrate 50 mg PO BID metHOTREXate sodium [metHOTREXate 2.5mg Tablet] 17.5 mg PO WEEKLY Levobunolol HCl [Betagan 0.5% 10mL opth nicolette] 1 drop EYE-BOTH BID Fluticasone Propionate 1 spray NS BID Celecoxib 200 mg PO DAILY Atorvastatin Calcium [Atorvastatin 10mg Tab] 10 mg PO HS predniSONE [Prednisone 5mg Tab] 5 mg PO DAILY Aspirin [Aspir-Low] 81 mg PO DAILY Folic Acid [Folic Acid 1mg tablet] 1 mg PO DAILY Loratadine [Claritin 10mg Tablet] 10 mg PO DAILY Sertraline HCl [Zoloft 50mg tablet] 50 mg PO DAILY Albuterol Sulfate [Albuterol HFA Inhaler] 2 puffs IH Q6HP PRN #1 inh PRN Reason: Shortness Of Breath Or Wheezing Esomeprazole Magnesium 40 mg PO DAILY Montelukast Sodium [Montelukast 10mg Tab] 10 mg PO HS
== END 2018-08-16 11:44 | disposition home or self-care (01) | DRG 194 ==
LOC: ER 11:46 → 2ND 13:40
PROVIDERS: ADMIT Family Medicine; ATTEND Family Medicine
CPT/HCPCS: 36415; 71020; 71046; 80048; 80053; 83605; 83880; 84484; 85025; 86738; 87040; 87070; 87077; 87205; 93005; 94640; 94761; 96374; 99285; J0456

== ENCOUNTER → 2018-08-23 11:05 | Outpatient (CLI) | payer MEDICARE, MEDICAID, SELFPAY ==
--- NOTE | 2018-08-23 11:09 | XR_ITS ---
XR chest 2V HISTORY: Follow-up pneumonia ITS.REASON: FU PNEUMONIA ORDERING PHYSICIAN: Jean Solano MD PATIENT AGE: 73 years COMPARISON: 08/15/2018 FINDINGS: Prior median sternotomy. Normal heart size. COPD. There is consolidation once again noted in the right lower lobe posteriorly probably not significant change. Patchy density also noted in the right upper lobe suspicious for underlying pneumonia which is slightly worse. Chronic changes are present in both lungs. No acute bony findings. IMPRESSION: COPD with persistent right lower lobe pneumonia with chronic changes and possible developing pneumonia in the right upper lobe
== END ==
PROVIDERS: PCP Family Medicine; Visit Provider Family Medicine
DX: J18.9 Pneumonia, unspecified organism (principal); Z09 Encounter for follow-up examination after completed treatment for conditions other than malignant neoplasm
CPT/HCPCS: 71046

== ENCOUNTER → 2018-09-02 17:07 | Outpatient (CLI) | payer MEDICARE, MEDICAID, SELFPAY ==
--- NOTE | 2018-09-02 17:13 | XR_ITS ---
XR chest 2V HISTORY: ITS.REASON: PNEUMONIA ORDERING PHYSICIAN: Jean Solano MD PATIENT AGE: 73 years COMPARISON: 08/23/2018 FINDINGS: There has been a prior median sternotomy/CABG. Normal heart size. COPD with chronic changes are noted. There is persistent opacification in the right lower lobe which may be due to superimposed pneumonia. This could be confirmed with chest CT if clinically desired. There are degenerative changes in the thoracic spine. IMPRESSION: Overall no change in the COPD with chronic interstitial changes with possible superimposed pneumonia in the right lung base which could be confirmed with chest CT if clinically desired
== END ==
PROVIDERS: PCP Family Medicine; Visit Provider Family Medicine
DX: J15.7 Pneumonia due to Mycoplasma pneumoniae (principal)
CPT/HCPCS: 71046

== ENCOUNTER → 2018-09-15 09:05 | Outpatient (CLI) | payer MEDICARE, MEDICAID, SELFPAY ==
[2018-09-15 10:23] LABS: Blood Urea Nitrogen 13 mg/dL (7-18); Creatinine,Serum 1.01 mg/dL (0.70-1.30); Estimated Glomerular Filt Rate 72 ml/min (>60); GFR (African American) 87 ML/MIN (>60)
--- NOTE | 2018-09-15 10:26 | CT_ITS ---
CT chest w con HISTORY: ITS.REASON: PULMONARY NODULES, INFILTRATE, recent pneumonia ORDERING PHYSICIAN: Jean Solano MD PATIENT AGE: 73 years COMPARISON: 07/28/2018, 07/13/2016 1320, 70 TECHNIQUE: Axial images obtained following the administration of 75 mL of Optiray 350 . Sagittal, and coronal reformatted images are also generated and reviewed. All CT scans at the facility use one or more dose reduction, viz: automated exposure control, ma/kV adjustment per patient size (including targeted exams where dose is matched to indication, i.e. head), or iterative reconstruction technique. FINDINGS: Scattered small lymph nodes are present in the mediastinum not significantly changed. There has been a prior CABG. Normal heart size without evidence of pericardial effusion. There is extensive coronary artery calcification. No evidence of aortic aneurysm or dissection. No evidence of central pulmonary embolus. There are degenerative changes in the thoracic spine There is chronic pulmonary fibrosis. The alveolar opacities have improved since 07/28/2018. The pulmonary fibrotic change appears slightly worse. There are multiple pulmonary nodules once again noted. Many of the nodules are unchanged. There are however a few new nodules. Specifically, there is a new 8 mm nodule in the left lower lobe which #50 there is an additional new nodule in the left lower lobe image #49 at 5 mm. There is trace right pleural effusion. There are old left-sided rib fractures. IMPRESSION: 1. Chronic changes with pulmonary fibrosis which appear slightly worse. 2. The alveolar opacification/pneumonia has improved 3. Multiple pulmonary nodules are once again noted most of which are stable. There are a couple of new nodules in the left lower lobe. These nodules could be neoplasm/metastatic disease or could be inflammatory/infectious .
== END ==
PROVIDERS: PCP Family Medicine; Visit Provider Family Medicine
DX: R91.8 Other nonspecific abnormal finding of lung field (principal)
CPT/HCPCS: 36415; 71260; 82565; 84520; Q9967

== ENCOUNTER 2019-08-11 23:09 | Emergency (ER) | payer MEDICARE, MEDICAID, SELFPAY ==
--- NOTE | 2019-08-11 23:04 | ECG_ITS ---
APPROVED REPORT Exam: Resting ECG HR:74 bpm ECG Measurements Heart Rate 74 AXES NV 168 P 49 QRSd 90 QRS 3 QT 378 T 72 QTc 419 <Conclusion> Normal sinus rhythm Normal ECG Electronically signed by : Zach Hall, 08/14/2019 07:05:20
[2019-08-11 23:10] VITALS: BMI 24.3
--- NOTE | 2019-08-11 23:12 | XR_ITS ---
PROCEDURE: XR CHEST 2V Patient Age:74Y CLINICAL HISTORY: soa. CABG COPD. History dyspnea 3 days COMPARISON: CXR2V XR chest 2V from 07/28/2018 CXR2V XR chest 2V from 08/12/2018 CXR2V XR chest 2V from 08/15/[address] chest w con from 09/15/2018 CT ANGIO CHEST from 08/12/2019 FINDINGS: Prior films are quite helpful but no acute findings are seen on today's two view chest. Underlying COPD chronic changes and slight coarsened markings throughout. Nodular densities that were nicely seen on CT are not readily apparent on this two-view CXR. I believe the chronic changes along with some overlying costochondral densities accounts for slight mild accentuation markings towards right lung base. No convincing pneumonia here seen on today's CT, only chronic changes with areas of pleural thickening noted on the CT to correlate Tortuous aorta. Sternotomy. CABG. Heart normal size on plain film apical pleural scarring bilaterally again noted. Stable mild compression wedging at mid thoracic vertebra is seen previously. Stable degenerative changes T-spine otherwise but IMPRESSION: Stable chest with abundant chronic changes. COPD. Nothing definitely acute. Dictated by: Janusz Fonseca MD 08/12/2019 10:11 Electronically signed by Janusz Fonseca MD in [facility] 08/12/2019 10:11
[2019-08-11 23:13] VITALS: BP 162/86; PULSE 79; RESP 18; TEMP 36.8; O2SAT 96; BMI 24.3
[2019-08-11 23:18] LABS: ABG Base Excess -1.1 mmol/L (-2.4-2.3); ABG HCO3 23.2 mmhg (22.0-26.0); ABG Oxygen Saturation 94 % (90-100); ABG PCO2 35.6 mmhg (35.0-45.0); ABG PH 7.43 mmol/L (7.35-7.45); ABG PO2 73.7 mmhg (80-100); ABG TCO2 24.3 mmhg (23-27)
[2019-08-11 23:21] LABS: Basophils % 0.3 % (0.1-2.0); Eosinophils # 0.3 K/mm3 (0.0-0.4); Eosinophils % 2.4 % (0.1-12.0); Hemoglobin 11.3 g/dL (14.1-18.0); Lymphocytes # 1.7 K/mm3 (0.7-4.5); Lymphocytes % 14.2 % (10-50); Mean Corpuscular HGB Conc 32.3 g/dL (31.8-35.4); Mean Corpuscular Hemoglobin 29.9 pg (27.0-31.2); Mean Corpuscular Volume 92.6 fl (80-94); Mean Platelet Volume 7.3 fl (7.4-10.4); Monocytes # 0.6 K/mm3 (0.1-1.0); Monocytes % 5.1 % (1.7-9.3); Neutrophils # 9.5 K/mm3 (1.8-7.8); Neutrophils % 77.9 % (37.0-80.0); Platelet Count 283 K/mm3 (142-424); Red Blood Count 3.78 M/mm3 (4.60-6.20); Red Cell Distribution Width 16.4 % (11.5-17.5); White Blood Count 12.2 K/mm3 (4.8-10.8)
[2019-08-11 23:21] LABS: Allen's Test ACCEPTABLE; Oxygen ROOM AIR %
[2019-08-11 23:22] LABS: Source Right Radial
[2019-08-11 23:27] LABS: Strep Scrn Group A (Rapid) Negative (Negative)
[2019-08-11 23:34] LABS: Chloride 100 mmol/L (98-107); Potassium 4.7 mmoL/L (3.5-5.1); Sodium 137 mmol/L (136-145)
[2019-08-11 23:37] LABS: Alanine Aminotransferase 34 U/L (12-78); Albumin Level 4.6 g/dl (3.5-5.0); Albumin/Globulin Ratio 1.4 (1.1-1.8); Alkaline Phosphatase 78 U/L (38-126); Anion Gap 15.7 mEq/L (5-15); Aspartate Amino Transferase 46 U/L (17-59); Bilirubin,Total 0.5 mg/dl (0.2-1.3); Blood Urea Nitrogen 28 mg/dl (9-20); Calcium 10.2 mg/dl (8.4-10.2); Carbon Dioxide 26 mmol/L (22.0-30.0); Creatinine Clearance Estimated 54 mL/min (50-200); Estimated Glomerular Filt Rate 54 ml/min (>60); GFR (African American) 65 ML/MIN (>60); Globulin 3.2 g/dL (1.3-3.2); Glucose 98 mg/dl (74-100); Total Protein,Serum 7.8 g/dl (6.3-8.2)
[2019-08-11 23:38] LABS: Lactic Acid 1.1 mmol/L (0.7-2.1)
[2019-08-11 23:43] LABS: C-Reactive Protein 7.8 mg/L (0-4)
--- NOTE | 2019-08-11 23:44 | HMH.EDSOB ---
ED Disposition Clinical Impression: Acute exacerbation of chronic obstructive airways disease, Pulmonary nodules Disposition: Home, Self-Care Condition on Discharge: Good Instructions: DI for Chronic Obstructive Pulmonary Disease Additional Instructions: use meds and see pcp for follow up Referrals: Provider,Referral, [Primary Care Provider] - - Critical Care Critical Care Time: No Attestation: On 08/11/19, the high probability of a clinically significant, sudden or life threatening deterioration of the following system(s) required my full and direct attention, intervention and personal management. The time I documented below is in addition to time spent performing reported procedures but includes the following listed in this critical care notation. Medical Decision Making - Medical Records Medical records reviewed: Yes: I reviewed the patient's medical records. - Lavell Inquiry Pt receiving controlled substance: No Vital Signs: 08/11/19 23:13 08/12/19 00:40 Temperature 98.3 F Temperature Source Oral Pulse Rate [Right] 79 74 Respiratory Rate 18 Blood Pressure [Right Arm] 162/86 H 156/88 H Blood Pressure Mean [Right Arm] 111 110 Blood Pressure Source [Right Arm] Automatic Cuff Blood Pressure Position [Right Arm] Supine 02 Sat by Pulse Oximetry 96 97 Oxygen Delivery Method Room Air Room Air - Lab Data Lab results reviewed: Yes: I reviewed the patient's lab results. Lab Results 08/11/19 23:05: WBC 12.2 H, RBC 3.78 L, Hgb 11.3 L, Hct 35.0 L, MCV 92.6, MCH 29.9, MCHC 32.3, RDW 16.4, Plt Count 283, MPV 7.3 L, Neut % (Auto) 77.9, Lymph % (Auto) 14.2, [place] % (Auto) 5.1, Eos % (Auto) 2.4, Baso % (Auto) 0.3, Neut # (Auto) 9.5 H, Lymph # (Auto) 1.7, [place] # (Auto) 0.6, Eos # (Auto) 0.3, Baso # (Auto) 0.0, ESR 22 H 08/11/19 23:05: Sodium 137, Potassium 4.7, Chloride 100, Carbon Dioxide 26, Anion Gap 15.7 H, BUN 28 H, Creatinine 1.30 H, Estimated Creat Clear 54, Estimated GFR 54 L, Est GFR ( Amer) 65, Glucose 98, Calcium 10.2, Total Bilirubin 0.5, AST 46, ALT 34, Alkaline Phosphatase 78, Troponin I < 0.01, C-Reactive Protein 7.8 H, Total Protein 7.8, Albumin 4.6, Globulin 3.2, Albumin/Globulin Ratio 1.4 08/11/19 23:05: Lactate 1.1 08/11/19 23:05: Influenza Type A Ag Negative, Influenza Type B Ag Negative 08/11/19 23:05: Group A Strep Rapid Negative 08/11/19 23:05: Mycoplasma pneumon IgM Non-reactive 08/11/19 23:05: NT-Pro-B Natriuret Pep 466 H 08/11/19 23:10: Specimen Source Right radial, O2 % Room air, ABG pH 7.43, ABG pCO2 35.6, ABG pO2 73.7 L, ABG HCO3 23.2, ABG Total CO2 24.3, ABG O2 Saturation 94, ABG Base Excess -1.1, Reynold Test Acceptable 08/12/19 00:10: Urine Color Yellow, Urine Appearance Clear, Urine pH 7.0, Ur Specific [place] 1.010, Urine Protein Negative, Urine Glucose (UA) Negative, Urine Ketones Negative, Urine Blood Negative, Urine Nitrate Negative, Urine Bilirubin Negative, Urine Urobilinogen 0.2, Ur Leukocyte Esterase Negative, Urine WBC 5-10 Result diagrams: 08/11/19 23:05 08/11/19 23:05 Orders (Tests/Meds): ED MEDICATIONS Generic Name Dose Route Start Last Admin Trade Name Freq PRN Reason Stop Dose Admin Sodium Chloride 1,000 mls @ 999 mls/hr 08/11/19 23:15 08/11/19 23:23 Sod Chlor 0.9% 1000ml Bag IV 08/12/19 00:15 999 mls/hr .Q1H1M ABBIE Administration Discontinued Medications Generic Name Dose Route Start Last Admin Trade Name Freq PRN Reason Stop Dose Admin Albuterol/Ipratropium 3 ml 08/11/19 23:12 08/11/19 23:31 Duoneb 3ml Neb IH 08/11/19 23:13 Not Given ONCE ONE Albuterol/Ipratropium 2 puff 08/11/19 23:29 08/11/19 23:36 Combivent Respimat 20mcg/100mcg Inhaler 08/11/19 23:30 Not Given ONCE ONE Ioversol 70 ml 08/12/19 01:25 08/12/19 01:28 Rad-Optiray 350 100ml Vial IV 08/12/19 01:26 70 ml ONCE ONE Administration Protocol Methylprednisolone Sodium Succinate 125 mg 08/11/19 23:12 08/11/19 23:22 Solu-Medrol 125m
[2019-08-11 23:47] LABS: Erythrocyte Sedimentation Rate 22 mm/hr (0-20)
--- NOTE | 2019-08-12 00:04 | CT_ITS ---
PROCEDURE: CT ANGIO CHEST Patient Age:74Y CLINCIAL INDICATION: sob Increased dyspnea past 3 days. History of COPD. Prior CABG. Previous smoker quit 25 years ago. COMPARISON: CHESTW CT chest w con from 09/15/2018 TECHNIQUE: CT a chest: CT angiogram chest with rapid bolus administration IV Contrast: 70ML OPTIRAY 350 followed by 40 mL normal saline bolus Thin-section helical ial images obtained with thickened axial images and thickened volume slabMipp sagittal and coronal reformats of performed on independent workstation. All CT scans at the facility use one or more dose reduction, viz: automated exposure control, ma/kV adjustment per patient size (including targeted exams where dose is matched to indication, i.e. head), or iterative reconstruction technique. FINDINGS: PULMONARY ARTERIES: No pulmonary embolus evident. AORTA: Atherosclerotic calcification no acute finding. No thoracic aortic aneurysm nor dissection evident LUNGS: Bilateral chronic pulmonary changes. . Generous apical pleural scarring again noted. Several scattered areas of fibrotic lung changes most evident towards the periphery of the lungs. Areas of atelectasis. Underlying emphysematous changes Bilateral pulmonary nodules-many of these are old but there are notable new nodules as well. RIGHT LUNG: NEW NODULES. Most significant new density is a spiculated nodule is seen at the medial right apex measuring up to 15 mm x 10 mm mm (the as seen on axial slice 27, 28) x up to 25 mm length (sagittal image 43, coronal 36). . I would recommend pulmonary consult. Likely a tend would tend to favor a follow-up CT chest in 2-3 months 3 to re-evaluate and exclude potential localized exclude inflammatory process.. Of the may want to consider bronchoscopic sampling a given the wall thickening on axial image 29. In either case this requires close follow-up. In this same region I would note fairly stable old nodule on axial image 29, however medial from this there is a new area somewhat linear density is medial from this nodule towards the nodule towards the right suprahilar region towards the larger new density noted paragraph above-this feature best seen coronal image 38. The scattered areas of calcified pleural scarring at the posterior right lung apex of are similar to previous study. No significant change here and attributed to scarring. This includes a more focal area at the periphery of the major fissure towards the right upper lung.-stable Right lung:. Several small old stable nodules are seen at the mid and lower lung field otherwise but no additional new nodules towards the right lung base: . Stable to slightly smaller 6.7 mm nodule right mid lung axial slice 58, just anterior to the major fissure. . Several small less than 4 mm nodules just anterior to the major fissure axial image 66 Small 5.5 mm stable nodule axial image 56 the th LEFT LUNG: . New 10 mm pleural based nodule periphery left mid lung/SANDIE (axial image 54) . New 6.6 mm x 8 mm height nodule with irregular margins medial aspect LLL (axial 59) . new 6 mm nodule, anterior SANDIE (axial image 52) the . Probable tiny new nodule 5.3 mm inferior LLL (axial image 83 sagittal 77) Stable 7.7 mm nodule (axial image 41, sagittal 71, coronal the 30) Stable tiny 6.3 x 4 mm nodule (axial image 45) Stable 10.9 mm Sandie nodule just posterior to the left evelyn (axial slice 65 sagittal 64) . Similar fairly stable 5 mm nodule periphery SANDIE (axial slice 37) the A few other very tiny nodules noted stable or smaller PLEURAL SPACES: No pleural effusion. No evidence of pneumothorax. Again areas of pleural and parenchymal scarring peripherally throughout most notabl
[2019-08-12 00:13] LABS: Troponin I < 0.01 ng/ml (0.00-0.034)
[2019-08-12 00:39] LABS: Microscopic, Urine URINE MICROSCOPIC (MICROSCOPIC)
[2019-08-12 00:40] VITALS: BP 156/88; PULSE 74; O2SAT 97
[2019-08-12 00:46] LABS: Appearance,Urine CLEAR (Clear); Bilirubin,Urine Negative (Negative); Blood, Urine Negative (Negative); Color,Urine YELLOW (Yellow); Glucose,Urine (UA) Negative (Negative); Ketones,Urine Negative (Negative); Leukocyte Esterase,Urine Negative (Negative); Nitrate,Urine Negative (Negative); Protein,Urine Negative (Negative); Urobilinogen,Urine 0.2 EU/dl (0.2)
[2019-08-12 00:55] LABS: Mycoplasma Pneumo IGM (Rapid) Non-Reactive (Non-Reactiv)
[2019-08-12 00:56] LABS: NT Pro Brain Natriuretic Pep. 466 pg/mL (0-450)
[2019-08-12 02:53] LABS: Troponin I < 0.01 ng/ml (0.00-0.034)
[2019-08-12 02:59] VITALS: BP 156/84; PULSE 76; RESP 16; TEMP 36.8; O2SAT 97
--- NOTE | 2019-08-12 03:09 | PC.NURSE ---
Pt has been discharged, waiting on ride
== END 2019-08-12 03:17 | disposition home or self-care (01) ==
PROVIDERS: Emergency Provider Emergency Medicine
DX: J44.1 Chronic obstructive pulmonary disease with (acute) exacerbation (principal); R91.8 Other nonspecific abnormal finding of lung field; Z95.1 Presence of aortocoronary bypass graft; K21.9 Gastro-esophageal reflux disease without esophagitis; E78.5 Hyperlipidemia, unspecified; I10 Essential (primary) hypertension; I25.2 Old myocardial infarction; Z79.899 Other long term (current) drug therapy
CPT/HCPCS: 71046; 71275; 80053; 81001; 82803; 83605; 83880; 84484; 85025; 85651; 86140; 86738; 87040; 87275; 87276; 87430; 93005; 96365; 96375; 99285; Q9967

== ENCOUNTER 2019-12-08 16:09 | Emergency (ER) | payer MEDICARE, MEDICAID, SELFPAY ==
--- NOTE | 2019-12-08 16:09 | ECG_ITS ---
APPROVED REPORT Exam: Resting ECG HR:75 bpm ECG Measurements Heart Rate 75 AXES NE 148 P 59 QRSd 94 QRS 2 QT 364 T 76 QTc 406 <Conclusion> Normal sinus rhythm LAD ST abnormality, possible digitalis effect Abnormal ECG Electronically signed by : Carson Garrett, 12/09/2019 20:59:51
[2019-12-08 16:14] VITALS: BP 141/76; PULSE 73; RESP 20; TEMP 36.7; O2SAT 96; BMI 24.3
--- NOTE | 2019-12-08 16:21 | XR_ITS ---
PROCEDURE: XR CHEST 2V CLINICAL HISTORY: chest pain, SOA COMPARISON: CR CXR2V XR chest 2V from 08/12/2018 DX CXR2V XR chest 2V from 08/15/2018 CR XR CHEST 2V from 08/11/[address] ANGIO CHEST from 08/12/2019 FINDINGS: There has been a prior median sternotomy. Normal heart size. No lobar consolidation or collapse. There is chronic coarsening of the bronchovascular markings. Coronary artery calcifications are present. Degenerative change thoracic spine. Mild tortuosity descending thoracic aorta IMPRESSION: No change no acute Dictated by: Reynold Morris MD 12/08/2019 19:08 Reynold Morris MD in [facility] 12/08/2019 19:08
--- NOTE | 2019-12-08 16:37 | PC.NURSE ---
Pt up to restroom
[2019-12-08 16:41] VITALS: BP 120/73; PULSE 72; O2SAT 98
[2019-12-08 16:49] LABS: Basophils % 0.3 % (0.1-2.0); Eosinophils # 0.5 K/mm3 (0.0-0.4); Eosinophils % 3.6 % (0.1-12.0); Hematocrit 35.4 % (42.0-52.0); Hemoglobin 11.9 g/dL (14.1-18.0); Lymphocytes # 2.4 K/mm3 (0.7-4.5); Lymphocytes % 18.3 % (10-50); Mean Corpuscular HGB Conc 33.8 g/dL (31.8-35.4); Mean Corpuscular Hemoglobin 31.2 pg (27.0-31.2); Mean Corpuscular Volume 92.5 fl (80-94); Mean Platelet Volume 7.1 fl (7.4-10.4); Monocytes # 1.1 K/mm3 (0.1-1.0); Monocytes % 8.5 % (1.7-9.3); Neutrophils % 69.3 % (37.0-80.0); Platelet Count 286 K/mm3 (142-424); Red Blood Count 3.82 M/mm3 (4.60-6.20); Red Cell Distribution Width 17.2 % (11.5-17.5)
[2019-12-08 16:52] LABS: Chloride 104 mmol/L (98-107)
[2019-12-08 16:53] LABS: Potassium 4.1 mmoL/L (3.5-5.1); Sodium 138 mmol/L (136-145)
[2019-12-08 16:55] LABS: Blood Urea Nitrogen 20 mg/dl (9-20); Creatinine Clearance Estimated 70 mL/min (50-200); Estimated Glomerular Filt Rate 73 ml/min (>60); GFR (African American) 88 ML/MIN (>60)
[2019-12-08 16:56] LABS: Anion Gap 13.1 mEq/L (5-15); Calcium 9.2 mg/dl (8.4-10.2); Carbon Dioxide 25 mmol/L (22.0-30.0); Glucose 88 mg/dl (74-100)
[2019-12-08 17:09] LABS: Troponin I < 0.01 ng/ml (0.00-0.034)
--- NOTE | 2019-12-08 17:21 | HMH.EDGENADL ---
ED Disposition Clinical Impression: Chest pain, Sinusitis Disposition: Home, Self-Care Condition on Discharge: Good Instructions: DI for Sinusitis Prescriptions: Amoxicillin [Amoxicillin 875MG Tab] 875 mg PO Q12H 10 Days #20 tab Transmission Status: Pending to [facility] methylPREDNISolone [Medrol 4mg tab] 4 mg PO DIRECTED #21 tab Transmission Status: Pending to [facility] Referrals: PCP,No [Primary Care Provider] - - Critical Care Critical Care Time: No Attestation: On 12/08/19, the high probability of a clinically significant, sudden or life threatening deterioration of the following system(s) required my full and direct attention, intervention and personal management. The time I documented below is in addition to time spent performing reported procedures but includes the following listed in this critical care notation. Medical Decision Making - Medical Records Medical records reviewed: Yes: I reviewed the patient's medical records. - Lavell Inquiry Pt receiving controlled substance: No Vital Signs: 12/08/19 16:14 12/08/19 16:41 Temperature 98.1 F Temperature Source Oral Pulse Rate [Right Radial] 73 72 Respiratory Rate 20 Blood Pressure [Right Arm] 141/76 H 120/73 Blood Pressure Mean [Right Arm] 97 88 Blood Pressure Source [Right Arm] Automatic Cuff Automatic Cuff Blood Pressure Position [Right Arm] Sitting Sitting 02 Sat by Pulse Oximetry 96 98 Oxygen Delivery Method Room Air Room Air - Lab Data Lab results reviewed: Yes: I reviewed the patient's lab results. Lab Results 12/08/19 16:35: WBC 13.0 H, RBC 3.82 L, Hgb 11.9 L, Hct 35.4 L, MCV 92.5, MCH 31.2, MCHC 33.8, RDW 17.2, Plt Count 286, MPV 7.1 L, Neut % (Auto) 69.3, Lymph % (Auto) 18.3, [place] % (Auto) 8.5, Eos % (Auto) 3.6, Baso % (Auto) 0.3, Neut # (Auto) 9.0 H, Lymph # (Auto) 2.4, [place] # (Auto) 1.1 H, Eos # (Auto) 0.5 H, Baso # (Auto) 0.0 12/08/19 16:35: Sodium 138, Potassium 4.1, Chloride 104, Carbon Dioxide 25, Anion Gap 13.1, BUN 20, Creatinine 1.00, Estimated Creat Clear 70, Estimated GFR 73, Est GFR ( Amer) 88, Glucose 88, Calcium 9.2, Troponin I < 0.01 12/08/19 16:35: Lactate 1.0 Result diagrams: 12/08/19 16:35 12/08/19 16:35 Orders (Tests/Meds): ORDERS Category Date Time Status XR chest 2V Stat Exams 12/08/19 16:21 Taken Troponin I Q3H Lab 12/08/19 19:30 Ordered Troponin I Q3H Lab 12/08/19 22:30 Ordered Blood Culture Stat Micro 12/08/19 16:35 Received - ECG Data Tracing #1 I reviewed this ECG and interpreted as documented below: Normal Sinus Rhythm: Yes General Adult HPI - General Chief complaint: Chest Pain Stated complaint: SOA, chest pain, cough Time Seen by Provider: 12/08/19 17:21 Mode of Arrival: Ambulatory Source of Information: Patient Limitations: No Limitations Description of Symptoms (Recalled from ER Triage Doc. by RN): Pt reports he is concerned he has pnuemonia setting up . Pt states has been on antibiotics x10 days r/t sinus infection, cough and drainage. Pt reports he is not improving. Pt states has had increased SOA (from his normal) x8 days, and L upper chest pain. Pt denies fevers. - History of Present Illness HPI narrative: 74-year-old gentleman presents the emergency department with left-sided lower chest pain with deep breaths he also complains about congestion and sinus pressure. He states his been going on really today but is been going on he states for maybe 3 or 4 days. Patient denies any recent fever shakes or chills patient denies any sore throat or headache patient denies any cough or shortness of breath.Patient denies any recent cough or shortness of breath, patient denies any sore throat or headache, patient denies any loss of taste or smell, patient denies any malaise or fatigue, patient denies any abdominal pain nausea vomiting or diarrhea. - Related Data Home Medications Medication Instructions Recorded C
[2019-12-08 17:42] VITALS: BP 120/73; PULSE 72; RESP 18; TEMP 36.8; O2SAT 98
== END 2019-12-08 17:42 | disposition home or self-care (01) ==
PROVIDERS: Emergency Provider Family Medicine
DX: J01.90 Acute sinusitis, unspecified (principal); J44.9 Chronic obstructive pulmonary disease, unspecified; I25.10 Atherosclerotic heart disease of native coronary artery without angina pectoris; K21.9 Gastro-esophageal reflux disease without esophagitis; F33.1 Major depressive disorder, recurrent, moderate; I25.2 Old myocardial infarction; I10 Essential (primary) hypertension; E78.5 Hyperlipidemia, unspecified; Z87.891 Personal history of nicotine dependence; Z79.899 Other long term (current) drug therapy
CPT/HCPCS: 71046; 80048; 83605; 84484; 85025; 87040; 93005; 96365; 96375; 99284

== ENCOUNTER → 2020-02-01 12:47 | Outpatient (CLI) | payer MEDICARE, MEDICAID, SELFPAY ==
[2020-02-01 12:53] LABS: MANUAL DIFFERENTIAL MANUAL DIFFERENTIAL (MANUAL DIFF)
[2020-02-01 13:09] LABS: Basophils # 0.1 K/mm3 (0-0.2); Basophils % 0.5 % (0.1-2.0); Eosinophils # 0.6 K/mm3 (0.0-0.4); Eosinophils % 5.9 % (0.1-12.0); Hematocrit 35.8 % (42.0-52.0); Hemoglobin 10.9 g/dL (14.1-18.0); Lymphocytes # 2.7 K/mm3 (0.7-4.5); Lymphocytes % 25.5 % (10-50); Mean Corpuscular HGB Conc 30.5 g/dL (31.8-35.4); Mean Corpuscular Hemoglobin 28.8 pg (27.0-31.2); Mean Corpuscular Volume 94.3 fl (80-94); Mean Platelet Volume 7.3 fl (7.4-10.4); Monocytes # 0.9 K/mm3 (0.1-1.0); Monocytes % 8.7 % (1.7-9.3); Neutrophils # 6.3 K/mm3 (1.8-7.8); Neutrophils % 59.4 % (37.0-80.0); Platelet Count 330 K/mm3 (142-424); White Blood Count 10.6 K/mm3 (4.8-10.8)
[2020-02-01 15:10] LABS: Eosinophils % 6 % (0-3); Lymphocytes % 26 % (10-50); Monocytes % 9 % (2-9); Neutrophils % 59 % (42-76); Platelet Estimate Normal; RBC Morphology Normal; Total Cells Counted 100
== END ==
PROVIDERS: Visit Provider Nurse Practitioner
DX: Z03.818 Encounter for observation for suspected exposure to other biological agents ruled out (principal)
CPT/HCPCS: 36415; 85007; 85014; 85018; 85048; 85049; U0003

== ENCOUNTER 2020-12-20 06:47 | Observation (INO) | payer MEDICARE, MEDICAID, SELFPAY ==
[2020-12-20] VITALS (23 sets, daily range): BP systolic 112–162; BP diastolic 62–85; PULSE 69–95; RESP 16–20; TEMP 36.6–38.3; O2SAT 89–96; BMI 27.3; BMI 23.7; BMI 22.5
--- NOTE | 2020-12-20 06:45 | ECG_ITS ---
APPROVED REPORT Exam: Resting ECG HR:93 bpm ECG Measurements Heart Rate 93 AXES WV 146 P 76 QRSd 84 QRS 31 QT 326 T 84 QTc 405 Conclusion Normal sinus rhythm ST abnormality, unchaged from prior Abnormal ECG Electronically signed by : Zach Hall MD 12/20/2020 18:54:25
--- NOTE | 2020-12-20 06:47 | XR_ITS ---
PROCEDURE: XR CHEST PORTABLE CLINICAL HISTORY: shortness of air COMPARISON: DX CXR2V XR chest 2V from 08/15/2018 CR XR CHEST 2V from 08/11/[address] ANGIO CHEST from 08/12/2019 CR XR CHEST 2V from 12/08/2019 FINDINGS: Prior CABG. No evidence of CHF. Normal heart size. There are low lung volumes. No lobar consolidation or collapse. No acute bony abnormalities. IMPRESSION: No acute findings. Dictated by: Reynold Morris MD 12/20/2020 07:41 Reynold Morris MD in [place] 12/20/2020 07:41
[2020-12-20 07:13] LABS: Influenza A, PCR Not Detected (NotDetected); Influenza B, PCR Not Detected (NotDetected)
[2020-12-20 07:15] LABS: Basophils % 0.4 % (0.1-2.0); Eosinophils # 0.2 K/mm3 (0.0-0.4); Eosinophils % 1.4 % (0.1-12.0); Hematocrit 37.7 % (42.0-52.0); Hemoglobin 12.1 g/dL (14.1-18.0); Lymphocytes # 1.6 K/mm3 (0.7-4.5); Lymphocytes % 12.5 % (10-50); Mean Corpuscular HGB Conc 32.2 g/dL (31.8-35.4); Mean Corpuscular Hemoglobin 30.7 pg (27.0-31.2); Mean Corpuscular Volume 95.4 fl (80-94); Mean Platelet Volume 8.3 fl (7.4-10.4); Monocytes # 0.6 K/mm3 (0.1-1.0); Monocytes % 4.4 % (1.7-9.3); Neutrophils # 10.2 K/mm3 (1.8-7.8); Neutrophils % 81.4 % (37.0-80.0); Platelet Count 271 K/mm3 (142-424); Red Blood Count 3.95 M/mm3 (4.60-6.20); Red Cell Distribution Width 16.7 % (11.5-17.5); White Blood Count 12.6 K/mm3 (4.8-10.8)
[2020-12-20 07:23] LABS: Alanine Aminotransferase 28 U/L (12-78); Albumin Level 4.4 g/dl (3.5-5.0); Albumin/Globulin Ratio 1.2 (1.1-1.8); Alkaline Phosphatase 92 U/L (38-126); Anion Gap 16.5 mEq/L (5-15); Aspartate Amino Transferase 39 U/L (17-59); Bilirubin,Total 0.6 mg/dl (0.2-1.3); Blood Urea Nitrogen 21 mg/dl (9-20); Calcium 9.3 mg/dl (8.4-10.2); Carbon Dioxide 30 mmol/L (22.0-30.0); Chloride 101 mmol/L (98-107); Creatinine Clearance Estimated 67 mL/min (50-200); Estimated Glomerular Filt Rate 72 ml/min (>60); GFR (African American) 88 ML/MIN (>60); Globulin 3.7 g/dL (1.3-3.2); Glucose 100 mg/dl (74-100); Potassium 4.5 mmoL/L (3.5-5.1); Sodium 143 mmol/L (136-145); Total Protein,Serum 8.1 g/dl (6.3-8.2)
[2020-12-20 07:34] LABS: NT Pro Brain Natriuretic Pep. 1030 pg/mL (0-450)
[2020-12-20 07:36] LABS: Coronavirus 19, PCR Detected (NotDetected)
[2020-12-20 07:39] LABS: Troponin I < 0.01 ng/ml (0.00-0.034)
[2020-12-20 07:40] LABS: T4 (Thyroxine) 6.8 ug/dl (5.53-11.0)
--- NOTE | 2020-12-20 07:46 | HMH.EDSOB ---
ED Disposition Clinical Impression: COVID-19, COVID-19 with pulmonary comorbidity Disposition: Admitted As Inpatient Condition on Discharge: Good Referrals: Provider,Referral, [Primary Care Provider] - - Critical Care Critical Care Time: No Attestation: On 12/20/20, the high probability of a clinically significant, sudden or life threatening deterioration of the following system(s) required my full and direct attention, intervention and personal management. The time I documented below is in addition to time spent performing reported procedures but includes the following listed in this critical care notation. Medical Decision Making - Medical Records Medical records reviewed: Yes: I reviewed the patient's medical records. - [place] Inquiry Pt receiving controlled substance: No Vital Signs: 12/20/20 06:57 Temperature 100.9 F H Temperature Source Oral Pulse Rate [Right Brachial] 95 H Respiratory Rate 19 Blood Pressure [Right Arm] 162/84 H Blood Pressure Mean [Right Arm] 110 Blood Pressure Source [Right Arm] Automatic Cuff Blood Pressure Position [Right Arm] Sitting 02 Sat by Pulse Oximetry 94 L Oxygen Delivery Method Room Air - Lab Data Lab results reviewed: Yes: I reviewed the patient's lab results. Lab Results 12/20/20 07:00: WBC 12.6 H, RBC 3.95 L, Hgb 12.1 L, Hct 37.7 L, MCV 95.4 H, MCH 30.7, MCHC 32.2, RDW 16.7, Plt Count 271, MPV 8.3, Neut % (Auto) 81.4 H, Lymph % (Auto) 12.5, [place] % (Auto) 4.4, Eos % (Auto) 1.4, Baso % (Auto) 0.4, Neut # (Auto) 10.2 H, Lymph # (Auto) 1.6, [place] # (Auto) 0.6, Eos # (Auto) 0.2, Baso # (Auto) 0.0 12/20/20 07:00: Sodium 143, Potassium 4.5, Chloride 101, Carbon Dioxide 30, Anion Gap 16.5 H, BUN 21 H, Creatinine 1.00, Estimated Creat Clear 67, Estimated GFR 72, Est GFR ( Amer) 88, Glucose 100, Calcium 9.3, Total Bilirubin 0.6, AST 39, ALT 28, Alkaline Phosphatase 92, Troponin I < 0.01, Total Protein 8.1, Albumin 4.4, Globulin 3.7 H, Albumin/Globulin Ratio 1.2, TSH 1.74, Thyroxine (T4) 6.8 12/20/20 07:00: SARS-CoV-2 (PCR) Detected A, Influenza A Untype (PCR) Not detected, Influenza Type B (PCR) Not detected 12/20/20 07:00: NT-Pro-B Natriuret Pep 1030 H Result diagrams: 12/20/20 07:00 12/20/20 07:00 Orders (Tests/Meds): ED MEDICATIONS Generic Name Dose Route Start Last Admin Trade Name Freq PRN Reason Stop Dose Admin Levofloxacin/Dextrose 500 mg in 100 mls @ 100 mls/hr 12/20/20 09:00 Levaquin 500mg/100ml Premix IV 01/03/21 08:59 Q24H ABBIE Discontinued Medications Generic Name Dose Route Start Last Admin Trade Name Freq PRN Reason Stop Dose Admin Dexamethasone Sodium Phosphate 10 mg 12/20/20 06:56 Dexamethasone 4mg/Ml 5ml Mdv IV 12/20/20 06:57 ONCE ONE Lactated Ringer's 1,000 mls @ 999 mls/hr 12/20/20 07:00 Lactated Ringer's 1000 Ml Bag IV 12/20/20 08:00 .Q1H1M ABBIE Ondansetron HCl 4 mg 12/20/20 06:56 Ondansetron 4mg/2ml Vial IV 12/20/20 06:57 ONCE ONE ORDERS Category Date Time Status Troponin I Q3H Lab 12/20/20 10:00 Ordered Troponin I Q3H Lab 12/20/20 13:00 Ordered Urinalysis and Microscopic Stat Lab 12/20/20 06:47 Ordered Sputum Culture & Gram Stain Stat Micro 12/20/20 07:50 Ordered - Radiology Data #1 Image(s): Chest Image Reviewed: Yes I reviewed the patient's radiology image Preliminary Findings: Abnormal (prob lt inflitrate ) - ECG Data Tracing #1 Normal Sinus Rhythm: Yes Ischemic changes: non-specific ST-T wave changes - Physician Consults Physician Consulted: vandana Reason -: Admission Medical Decision Narrative: pt with covid with prob pneumonia and will need admit Resp/SOB HPI - General Chief Complaint: Fever Stated Complaint: body aches,fever,covid+ Time Seen by Provider: 12/20/20 07:00 Mode of Arrival: EMS Source of Information: Patient, EMS, Medical Record Limitations: No Limitations Description of Symptoms (Recalled from ER Triage Doc. by
[2020-12-20 07:55] LABS: Thyroid Stimulating Hormone 1.74 uIU/mL (0.465-4.68)
--- NOTE | 2020-12-20 09:04 | PC.NURSE ---
Pt requested to leave vs monitors off because he hates feeling tied down like that
--- NOTE | 2020-12-20 09:06 | P.HP_ITS ---
*Admission Date: 12/20/20 <Herminia Araujo - 12/20/20 09:14> *Chief complaint: feels bad <Herminia Araujo 12/20/20 09:14> *History of present illness: Mr. Ruiz is a 75-year-old male with a history of rheumatoid arthritis, GERD, hypertension, hyperlipidemia, and depression who began feeling poorly approximately 10 days ago. He did have a telehealth with [facility] on 12/13/2020 and complained of cough with nasal congestion and a low-grade fever. He was also having shortness of breath, body aches, and chest congestion. She ordered a CBC and a Covid test, however the patient did not have transportation to get to [facility] to perform the testing. She started him on cefdinir and prednisone. He apparently did go to the [facility] department and got tested and was positive for Covid. He did have both Moderna Covid vaccines. He states the shortness of breath improved, but he has continued to run a fever and presented to the emergency room today due to sinus issues. He states he has a lot of pressure in his head and he is also coughing up yellow-brown sputum. He is generally not feeling well. His white blood cell count was slightly elevated at 12.6 and his Covid nasal swab was still positive. He had a chest x-ray showing nothing acute. He was running a fever but his oxygen was in the mid 90s on room air. He will be admitted for further evaluation and treatment. <Herminia Araujo - 12/20/20 09:14> [facility] History I have reviewed the patient's past medical history: Yes <Herminia Araujo 12/20/20 09:14> Medical History: Reports:: Chronic Obstructive Pulmonary Disease (COPD), Coronary Artery Disease, Depression, Gastroesophageal Reflux Disease(GERD), Hyperlipidemia, Hypertension, Myocardial Infarction Denies:: Diabetes Mellitus Type 1, Diabetes Mellitus Type 2 <Van[facility]erm[facility] 12/20/20 09:14> *Have you ever received a pneumonia vaccine?: No <GeneruddyHerminia 12/20/20 09:14> *Have you received a flu vaccine this season?: No <Herminia Araujo 12/20/20 09:14> Other Medical History: Reports: Anemia, Cataracts, Glaucoma, Other (RA, colon polyps) <[facility] 09:14> Laterality Cases: Bilateral: Cataract <[facility] 09:14> Other Surgeries: Yes: CABG, Colonoscopy, Other (right hand, right elbow) <[facility] 12/20/20 09:14> Amputation: No <[facility] 12/20/20 09:14> Fractures: No <[facility] 12/20/20 09:14> - *Social History Smoking Status: Former smoker <[facility] 12/20/20 09:14> Tobacco Type: cigarettes <[facility] 12/20/20 09:14> Alcohol Intake: never <[facility] 12/20/20 09:14> Alcohol Intake Frequency:: other <[facility] 12/20/20 09:14> Substance Use Type: denies use <[facility] 12/20/20 09:14> *Occupational Status:: retired <[facility] 12/20/20 09:14> Housing: apartment <[facility] 12/20/20 09:14> Household Members: none <[facility] 12/20/20 09:14> *Travel in the last 8 weeks: None <[facility] 12/20/20 09:14> - Psychiatric History Pschychiatric History:: Reports:: Depression <[facility] 12/20/20 09:14> Family Hx:: Cancer, Heart Attack <[facility] 12/20/20 09:14> Review of Systems - Constitutional Reports fatigue, Reports fever(s), Reports malaise, Reports weakness <[facility] 12/20/20 09:14> - Eyes Denies blurry vision, Denies double vision <[facility] 12/20/20 09:14> - ENT Reports nasal congestion, Reports sinus pressure, Reports sore throat <[facility] 12/20/20 09:14> - *Cardiovascular Reports shortness of breath, Denies chest pain <[facility] 12/20/20 09:14> - *Re
--- NOTE | 2020-12-20 09:06 | HMH.HP ---
*Admission Date: 12/20/20 <Herminia Araujo - 12/20/20 09:14> *Chief complaint: feels bad <Herminia Araujo 12/20/20 09:14> *History of present illness: Mr. Ruiz is a 75-year-old male with a history of rheumatoid arthritis, GERD, hypertension, hyperlipidemia, and depression who began feeling poorly approximately 10 days ago. He did have a telehealth with [facility] on 12/13/2020 and complained of cough with nasal congestion and a low-grade fever. He was also having shortness of breath, body aches, and chest congestion. She ordered a CBC and a Covid test, however the patient did not have transportation to get to [facility] to perform the testing. She started him on cefdinir and prednisone. He apparently did go to the [facility] department and got tested and was positive for Covid. He did have both Moderna Covid vaccines. He states the shortness of breath improved, but he has continued to run a fever and presented to the emergency room today due to sinus issues. He states he has a lot of pressure in his head and he is also coughing up yellow-brown sputum. He is generally not feeling well. His white blood cell count was slightly elevated at 12.6 and his Covid nasal swab was still positive. He had a chest x-ray showing nothing acute. He was running a fever but his oxygen was in the mid 90s on room air. He will be admitted for further evaluation and treatment. <Herminia Araujo - 12/20/20 09:14> [facility] History I have reviewed the patient's past medical history: Yes <Herminia Araujo 12/20/20 09:14> Medical History: Reports:: Chronic Obstructive Pulmonary Disease (COPD), Coronary Artery Disease, Depression, Gastroesophageal Reflux Disease(GERD), Hyperlipidemia, Hypertension, Myocardial Infarction Denies:: Diabetes Mellitus Type 1, Diabetes Mellitus Type 2 <[facility] 12/20/20 09:14> *Have you ever received a pneumonia vaccine?: No <GeneruddyHerminia 12/20/20 09:14> *Have you received a flu vaccine this season?: No <Herminia Araujo 12/20/20 09:14> Other Medical History: Reports: Anemia, Cataracts, Glaucoma, Other (RA, colon polyps) <[facility]/20 09:14> Laterality Cases: Bilateral: Cataract <[facility] 12/20/[facility] 09:14> Other Surgeries: Yes: CABG, Colonoscopy, Other (right hand, right elbow) <[facility] 12/20/20 09:14> Amputation: No <[facility] 12/20/20 09:14> Fractures: No <[facility] 12/20/20 09:14> - *Social History Smoking Status: Former smoker <[facility] 12/20/20 09:14> Tobacco Type: cigarettes <[facility] 12/20/20 09:14> Alcohol Intake: never <[facility] 12/20/20 09:14> Alcohol Intake Frequency:: other <[facility] 12/20/20 09:14> Substance Use Type: denies use <[facility] 12/20/20 09:14> *Occupational Status:: retired <[facility] 12/20/20 09:14> Housing: [facility] <[facility] 12/20/20 09:14> Household Members: none <[facility] 12/20/20 09:14> *Travel in the last 8 weeks: None <[facility] 12/20/20 09:14> - Psychiatric History Pschychiatric History:: Reports:: Depression <[facility] 12/20/20 09:14> Family Hx:: Cancer, Heart Attack <[facility] 12/20/20 09:14> Review of Systems - Constitutional Reports fatigue, Reports fever(s), Reports malaise, Reports weakness <[facility] 12/20/20 09:14> - Eyes Denies blurry vision, Denies double vision <[facility] 12/20/20 09:14> - ENT Reports nasal congestion, Reports sinus pressure, Reports sore throat <[facility] 12/20/20 09:14> - *Cardiovascular Reports shortness of breath, Denies chest pain <[facility] 12/20/20 09:14> - *Respiratory Reports cough, Reports shortness of breath <Herminia Araujo 12/20/20 09:14> - *Gastrointestinal Denies abdominal pain, Denies loose stools, Denies nausea, Denies vomiting <Herminia Araujo 12/20/20 09:14> - *Genitourinary Denies difficulty urinating, Denies painful urination <Sydni
[2020-12-20 09:08] LABS: Microscopic, Urine URINE MICROSCOPIC (MICROSCOPIC)
[2020-12-20 09:09] LABS: Appearance,Urine CLEAR (Clear); Bilirubin,Urine Negative (Negative); Blood, Urine Negative (Negative); Color,Urine YELLOW (Yellow); Glucose,Urine (UA) Negative (Negative); Ketones,Urine Negative (Negative); Leukocyte Esterase,Urine Negative (Negative); Nitrate,Urine Negative (Negative); Protein,Urine Negative (Negative); Urobilinogen,Urine 0.2 EU/dl (0.2)
[2020-12-20 09:16] LABS: Squamous Epithelial Cell,Urine Occasional #/hpf (0-5)
[2020-12-20 11:25] LABS: Troponin I < 0.01 ng/ml (0.00-0.034)
--- NOTE | 2020-12-20 11:40 | P.CONPHA_ITS ---
[facility] Pharmacy VTE Monitoring - Patient Demographics Admission date: 12/20/20 Report Date: 12/20/20 Time: 11:40 Allergies/Adverse Reactions: Patient Allergies aspirin [ASPIRIN] Adverse Reaction (Mild, Verified 08/12/18 11:59) Height: 1.8 m Weight: 77.111 kg Patient Problems: Current Active Problems Rheumatoid arthritis (Chronic) Hypertension (Chronic) Hyperlipemia (Chronic) Coronary artery disease (Chronic) COVID-19 (Acute) COVID-19 with pulmonary comorbidity (Acute) Leukocytosis (Acute) - VTE Risk Labs: VTE Related Lab Results Hgb 12.1 g/dL (14.1-18.0) L 12/20/20 07:00 Hct 37.7 % (42.0-52.0) L 12/20/20 07:00 Plt Count 271 K/mm3 (142-424) 12/20/20 07:00 BUN 21 mg/dl (9-20) H 12/20/20 07:00 Creatinine 1.00 mg/dl (0.66-1.25) 12/20/20 07:00 Estimated Creat Clear 67 mL/min (50-200) 12/20/20 07:00 Clinical Trial Participant: No - Prophylaxis VTE Prophylaxis Ordered?: Yes Types of VTE Prophylaxis: TEDS Knee High
--- NOTE | 2020-12-20 12:13 | PC.NURSE ---
patient eating lunch at this time
--- NOTE | 2020-12-20 12:55 | PC.NURSE ---
contacted warehouse worker to check on status of bed assignment for pt. States she will check and call us back
--- NOTE | 2020-12-20 13:42 | PC.NURSE ---
report called to RAMANA montes
[2020-12-20 14:09] LABS: Troponin I < 0.01 ng/ml (0.00-0.034)
--- NOTE | 2020-12-20 18:59 | PC.NURSE ---
Pt has done well since being up to the floor. Pt has tolerated RA appropriately o2 sats have remained 90% and above. Lungs CTA. Productive cough noted, p t given speci cup for sputum check. No other acute changes or complaints at this time, will continue to monitor.
[2020-12-21] VITALS (10 sets, daily range): BP systolic 118–155; BP diastolic 68–83; PULSE 65–83; RESP 16–22; TEMP 36.3–36.9; O2SAT 93–97; BMI 22.8
[2020-12-21 04:43] LABS: Basophils % 0.1 % (0.1-2.0); Eosinophils % 0.1 % (0.1-12.0); Hematocrit 33.9 % (42.0-52.0); Hemoglobin 10.9 g/dL (14.1-18.0); Lymphocytes # 1.1 K/mm3 (0.7-4.5); Lymphocytes % 10.9 % (10-50); Mean Corpuscular HGB Conc 32.1 g/dL (31.8-35.4); Mean Corpuscular Hemoglobin 31.1 pg (27.0-31.2); Mean Corpuscular Volume 97.1 fl (80-94); Mean Platelet Volume 8.1 fl (7.4-10.4); Monocytes # 0.2 K/mm3 (0.1-1.0); Monocytes % 1.9 % (1.7-9.3); Neutrophils # 8.5 K/mm3 (1.8-7.8); Neutrophils % 87.1 % (37.0-80.0); Platelet Count 243 K/mm3 (142-424); Red Blood Count 3.49 M/mm3 (4.60-6.20); Red Cell Distribution Width 16.7 % (11.5-17.5); White Blood Count 9.8 K/mm3 (4.8-10.8)
[2020-12-21 04:50] LABS: Anion Gap 15.5 mEq/L (5-15); Blood Urea Nitrogen 25 mg/dl (9-20); Carbon Dioxide 25 mmol/L (22.0-30.0); Chloride 103 mmol/L (98-107); Creatinine Clearance Estimated 64 mL/min (50-200); Estimated Glomerular Filt Rate 94 ml/min (>60); GFR (African American) 113 ML/MIN (>60); Glucose 146 mg/dl (74-100); Potassium 4.5 mmoL/L (3.5-5.1); Sodium 139 mmol/L (136-145)
[2020-12-21 04:52] LABS: MANUAL DIFFERENTIAL MANUAL DIFFERENTIAL (MANUAL DIFF)
--- NOTE | 2020-12-21 05:27 | PC.NURSE ---
Patient had an uneventful night this shift; no s/s of acute distress noted this shift; call light within reach, bed at lowest level for safety; will continue to monitor.
--- NOTE | 2020-12-21 08:24 | XR_ITS ---
PROCEDURE INFORMATION: Exam: XR Chest Exam date and time: 12/21/2020 8:24 AM Age: 75 years old Clinical indication: Shortness of breath; Additional info: F/u pneumonia TECHNIQUE: Imaging protocol: XR of the chest. Views: 1 view. COMPARISON: CR XR CHEST PORTABLE 12/20/2020 7:21 AM FINDINGS: Lungs: COPD, interstitial prominence, chronic granulomatous disease. Pleural spaces: No significant pleural effusion. Heart/Mediastinum: No cardiomegaly. Bones/joints: Median sternotomy. Osteopenia, degenerative change, and old rib fractures. When correlating with the previous study, no significant interval changes are present. IMPRESSION: Stable appearance of the chest, not significantly changed from 12/20/2020 .
--- NOTE | 2020-12-21 08:38 | HMH.ACPN2 ---
Internal Medicine - PN: Subj *Date: 12/21/20 *Time: 08:38 Interval history: He rested well last night. No new complaints this morning. He still has a productive cough. Denies pleuritic chest pain or increased shortness of breath. Exam Vital signs and Labs for Last 24 Hours: Temp Pulse Resp BP Pulse Ox 98.3 F 75 20 155/83 H 94 L 12/21/20 07:59 12/21/20 07:59 12/21/20 07:59 12/21/20 07:59 12/21/20 07:59 Laboratory Results - last 24 hr 12/20/20 09:00: Urine Color Yellow, Urine Appearance Clear, Urine pH 6.0, Ur Specific [place] 1.020, Urine Protein Negative, Urine Glucose (UA) Negative, Urine Ketones Negative, Urine Blood Negative, Urine Nitrate Negative, Urine Bilirubin Negative, Urine Urobilinogen 0.2, Ur Leukocyte Esterase Negative, Urine RBC None, Urine WBC 3-5, Ur Squamous Epith Cells Occasional, Urine Bacteria None 12/20/20 10:00: Troponin I < 0.01 12/20/20 13:30: Troponin I < 0.01 12/21/20 04:00: WBC 9.8, RBC 3.49 L, Hgb 10.9 L, Hct 33.9 L, MCV 97.1 H, MCH 31.1, MCHC 32.1, RDW 16.7, Plt Count 243, MPV 8.1, Neut % (Auto) 87.1 H, Lymph % (Auto) 10.9, [place] % (Auto) 1.9, Eos % (Auto) 0.1, Baso % (Auto) 0.1, Neut # (Auto) 8.5 H, Lymph # (Auto) 1.1, [place] # (Auto) 0.2, Eos # (Auto) 0.0, Baso # (Auto) 0.0 12/21/20 04:00: Sodium 139, Potassium 4.5, Chloride 103, Carbon Dioxide 25, Anion Gap 15.5 H, BUN 25 H, Creatinine 0.80, Estimated Creat Clear 64, Estimated GFR 94, Est GFR ( Amer) 113 D, Glucose 146 H D, Calcium 9.0 I & O for Last 24 hours: Intake & Output 12/18/20 12/19/20 12/20/2012/21/21 11:59 11:59 11:59 11:59 Intake Total 1180 / 1180 Output Total 975 / 975 Balance 205 / 205 Weight 170 lb 163 lb 8 oz Microbiology Reports for the Last 24 Hours: Microbiology 12/20/20 19:40 Sputum - Expectorated Sputum Gram Stain - Final Narrative: He is resting comfortably. Alert and oriented. Color is normal. No respiratory distress. Breath sounds are diminished in the bases with rales in the left base. Assessment and Plan (1) Pneumonia Status: Acute Qualifiers: Pneumonia type: due to unspecified organism Laterality: bilateral Lung location: unspecified part of lung Qualified Code(s): J18.9 - Pneumonia, unspecified organism Category: Medical Code(s): J18.9 - Pneumonia, unspecified organism (2) COVID-19 Status: Acute Category: Medical Code(s): U07.1 - COVID-19 (3) Leukocytosis Status: Acute Category: Medical Code(s): D72.829 - Elevated white blood cell count, unspecified (4) Coronary artery disease Status: Chronic Category: Medical Code(s): I25.10 - Atherosclerotic heart disease of [place] coronary artery without angina pectoris (5) Hyperlipemia Status: Chronic Category: Medical Code(s): E78.5 - Hyperlipidemia, unspecified (6) Hypertension Status: Chronic Category: Medical Code(s): I10 - Essential (primary) hypertension (7) Rheumatoid arthritis Status: Chronic Category: Medical Code(s): M06.9 - Rheumatoid arthritis, unspecified - Assessment and plan all Dx Assessment and Plan for all problems:: Continue per orders. Awaiting sputum culture. Repeat chest x-ray.
[2020-12-21 11:08] LABS: Anisocytosis 1+; Eosinophils % 2 % (0-3); Hypochromasia 1+; Lymphocytes % 13 % (10-50); Neutrophils % 80 % (42-76); Platelet Estimate Normal; Promyelocytes % 1 %; Total Cells Counted 100
--- NOTE | 2020-12-21 16:54 | PC.NURSE ---
NO ACUTE CHANGES DURING THIS SHIFT, HE HAS NOT REQUIRED O2 SUPPORT, AMBULATES IN ROOM INDEPENDENTLY. DENIES PAIN, DENIES N/V/D. NO NEEDS VOICED.
[2020-12-22] VITALS (10 sets, daily range): BP systolic 123–157; BP diastolic 60–77; PULSE 56–80; RESP 16–20; TEMP 36.4–36.7; O2SAT 94–99; BMI 22.9
--- NOTE | 2020-12-22 06:00 | PC.NURSE ---
patient has had an uneventful night; has requested to not have fluids going while he is sleeping. VS WNL; no s/s of acute distress note, call light within reach, bed at lowest level for safety; will continue to monitor.
--- NOTE | 2020-12-22 10:06 | P.PN_ITS ---
Internal Medicine - PN: Subj *Date: 12/22/20 *Time: 10:06 Interval history: He rested well overnight. No increased shortness of breath. He still has some productive cough. He is tolerating his diet. Exam Vital signs and Labs for Last 24 Hours: Temp Pulse Resp BP Pulse Ox 98.0 F 76 20 126/73 94 L 12/22/20 07:22 12/22/20 07:22 12/22/20 07:22 12/22/20 07:22 12/22/20 07:22 Laboratory Results - last 24 hr 12/21/20 04:00: Total Counted 100, Neutrophils % (Manual) 80 H, Band Neutrophils % 2.0, Lymphocytes % (Manual) 13, Eosinophils % (Manual) 2, Basophils % (Manual) 1.0, Metamyelocytes % 1.0, Promyelocytes % 1, Platelet Estimate Normal, Hypochromasia 1+, Anisocytosis 1+ I & O for Last 24 hours: Intake & Output 12/19/20 12/20/20 12/21/20 12/22/20 11:59 11:59 11:59 11:59 Intake Total 1180 / 1180 1380 / 1380 Output Total 975 / 975 2450 / 2450 Balance 205 / 205 -1070 / -1070 Weight 170 lb 163 lb 8 oz 164 lb Microbiology Reports for the Last 24 Hours: Microbiology 12/20/20 19:40 Sputum - Expectorated Sputum Gram Stain - Final 12/20/20 19:40 Sputum - Expectorated Sputum Sputum Culture - Preliminary Narrative: O2 sats and vital signs stable. He is alert and oriented. Heart is regular. Breath sounds are equal with fewer rales in the left base. Extremities no edema. Assessment and Plan (1) Pneumonia Status: Acute Qualifiers: Pneumonia type: due to unspecified organism Laterality: bilateral Lung location: unspecified part of lung Qualified Code(s): J18.9 - Pneumonia, unspecified organism Category: Medical Code(s): J18.9 - Pneumonia, unspecified organism (2) COVID-19 Status: Acute Category: Medical Code(s): U07.1 - COVID-19 (3) Leukocytosis Status: Acute Category: Medical Code(s): D72.829 - Elevated white blood cell count, unspecified (4) Coronary artery disease Status: Chronic Category: Medical Code(s): I25.10 - Atherosclerotic heart disease of [place] coronary artery without angina pectoris (5) Hyperlipemia Status: Chronic Category: Medical Code(s): E78.5 - Hyperlipidemia, unsp ecified (6) Hypertension Status: Chronic Category: Medical Code(s): I10 - Essential (primary) hypertension (7) Rheumatoid arthritis Status: Chronic Category: Medical Code(s): M06.9 - Rheumatoid arthritis, uns pecified - Assessment and plan all Dx Assessment and Plan for all problems:: He continues to improve. Awaiting final sputum culture. Continue current orde rs. Possibly discharge home tomorrow.
[2020-12-23] VITALS: BP 113/66; PULSE 70; RESP 17; TEMP 36.4; O2SAT 96
[2020-12-23 04:00] VITALS: BP 131/56; PULSE 62; RESP 18; TEMP 36.6; O2SAT 97
[2020-12-23 05:21] VITALS: BMI 22.6
--- NOTE | 2020-12-23 05:35 | PC.NURSE ---
patient had an uneventful night this shift. No s/s of acute distress noted, call light within reach, bed at lowest level for safety; will continue to monitor.
[2020-12-23 06:20] VITALS: PULSE 69; PULSE 70
--- NOTE | 2020-12-23 07:45 | P.PN_ITS ---
Internal Medicine - PN: Subj *Date: 12/23/20 *Time: 07:45 Interval history: He feels better with less cough which is less productive. He would like to go home stating he feels he can rest better at home. Denies shortness of breath or chest pain. Exam Vital signs and Labs for Last 24 Hours: Temp Pulse Resp BP Pulse Ox 97.8 F 69 18 131/56 L 97 12/23/20 04:00 12/23/20 06:20 12/23/20 04:00 12/23/20 04:00 12/23/20 04:00 I & O for Last 24 hours: Intake & Output 12/20/20 12/21/20 12/22/20 12/23/20 11:59 11:59 11:59 11:59 Intake Total 1180 / 1180 1380 / 1380 960 / 960 Output Total 975 / 975 2450 / 2450 1850 / 1850 Balance 205 / 205 -1070 / -1070 -890 / -890 Weight 170 lb 163 lb 8 oz 164 lb 161 lb 7 oz Microbiology Reports for the Last 24 Hours: Microbiology 12/20/20 07:00 Blood Blood Culture - Preliminary NO GROWTH AFTER 48 HOURS 12/20/20 07:00 Blood Blood Culture - Preliminary NO GROWTH AFTER 48 HOURS 12/20/20 19:40 Sputum - Expectorated Sputum Gram Stain - Final 12/20/20 19:40 Sputum - Expectorated Sputum Sputum Culture - Preliminary Narrative: He has been up and about the room. No shortness of breath. Color is good. Rales in the left base of improved. Heart is regular. Assessment and Plan (1) Pneumonia Status: Acute Qualifiers: Pneumonia type: due to unspecified organism Laterality: bilateral Lung location: unspecified part of lung Qualified Code(s): J18.9 - Pneumonia, unspecified organism Category: Medical Code(s): J18.9 - Pneumonia, unspecified organism (2) COVID-19 Status: Acute Category: Medical Code(s): U07.1 - COVID-19 (3) Leukocytosis Status: Acute Category: Medical Code(s): D72.829 - Elevated white blood cell count, unspecified (4) Coronary artery disease Status: Chronic Category: Medical Code(s): I25.10 - Atherosclerotic heart disease of [place] coronary artery without angina pectoris (5) Hyperlipemia Status: Chronic Category: Medical Code(s): E78.5 - Hyperlipidemia, unspecified (6) Hypertension Status: Chronic Category: Medical Code(s): I10 - Essential (primary) hypertension (7) Rheumatoid arthritis Status: Chronic Category: Medical Code(s): M06.9 - Rheumatoid arthritis, unspecified - Assessment and plan all Dx Assessment and Plan for all problems:: He is improved and stable for discharge. Follow-up in office for recheck in 10 days.
[2020-12-23 08:00] VITALS: BP 135/73; PULSE 70; RESP 18; TEMP 36.6; O2SAT 99
[2020-12-23 09:50] VITALS: PULSE 70
--- NOTE | 2020-12-26 17:16 | HMH.DCSUM ---
General - General Admission date:: 12/20/20 <Jean Solano - 01/19/21 23:01> 12/20/20 <Anita Rey - 12/26/20 17:38> Discharge date: 12/23/20 <Anita Rey - 12/26/20 17:38> HPI HPI: Mr. Ruiz is a 75-year-old male with a history of rheumatoid arthritis, GERD, hypertension, hyperlipidemia, and depression who began feeling poorly approximately 10 days prior to admission. He did have a telehealth with Polly on 12/13/2020 and complained of cough with nasal congestion and a low-grade fever. He was also having shortness of breath, body aches, and chest congestion. She ordered a CBC and a Covid test. However the patient did not have transportation to get to [facility] to perform the testing. She started him on cefdinir and prednisone. He apparently did go to the [facility] and was tested. The COVID test was positive. He did have both Moderna Covid vaccines. He stated the shortness of breath improved, but he had continued to run a fever and thus presented to the emergency room due to sinus issues. He stated he had a lot of pressure in his head and he was also coughing up yellow-brown sputum. He generally did not feel well. His white blood cell count was slightly elevated at 12.6 and his Covid nasal swab was still positive. He had a chest x-ray showing nothing acute. He was running a fever but his oxygen was in the mid 90s on room air. He was admitted for further evaluation and treatment. <ReyAnita recinos - 12/26/20 17:38> Hospital Course Hospital Course: Patient was felt to have a secondary pneumonia to his primary Covid diagnoses. Levaquin was continued.. Steroids and duo nebs were added as well. Patient was able to rest well with no increased shortness of breath. O2 sats were in the upper 90s on room air. He was tolerating his diet. Cough did become less with less production. On 12/23/2020 patient denied shortness of breath and chest pain and he was wanting to go home stating that he could rest better at home. Thus he was discharged to home in stable and satisfactory condition. He was to follow-up with Dr. Solano on 01/02/2021. Medications as per medication reconciliation sheet. See data for specific test results. <Anita Rey - 12/26/20 17:38> Objective Vital signs: Temp Pulse Resp BP Pulse Ox 97.8 F 70 18 135/73 99 12/23/20 08:00 12/23/20 09:50 12/23/20 08:00 12/23/20 08:00 12/23/20 08:00 <Jean Solano - 01/19/21 23:01> Temp Pulse Resp BP Pulse Ox 97.8 F 70 18 135/73 99 12/23/20 08:00 12/23/20 09:50 12/23/20 08:00 12/23/20 08:00 12/23/20 08:00 <Anita Rey - 12/26/20 17:38> Narrative: Exam Vital signs and Labs for Last 24 Hours: Temp Pulse Resp BP Pulse Ox 97.8 F 69 18 131/56 L 97 12/23/20 04:00 12/23/20 06:20 12/23/20 04:00 12/23/20 04:00 12/23/20 04:00 I & O for Last 24 hours: Intake & Output 12/20/20 12/21/20 12/22/20 12/23/20 11:59 11:59 11:59 11:59 Intake Total 1180 / 1180 1380 / 1380 960 / 960 Output Total 975 / 975 2450 / 2450 1850 / 1850 Balance 205 / 205 -1070 / -1070 -890 / -890 Weight 170 lb 163 lb 8 oz 164 lb 161 lb 7 oz Microbiology Reports for the Last 24 Hours: Microbiology 12/20/20 07:00 Blood Blood Culture - Preliminary NO GROWTH AFTER 48 HOURS 12/20/20 07:00 Blood Blood Culture - Preliminary NO GROWTH AFTER 48 HOURS 12/20/20 19:40 Sputum - Expectorated Sputum Gram Stain - Final 12/20/20 19:40 Sputum - Expectorated Sputum Sputum Culture - Preliminary Narrative: He has been up and about the room. No shortness of breath. Color is good. Rales in the left base of improved. Heart is regular. <Anita Rey 12/26/20 17:38> Results Completed studies during hospitalization [Text1]: 12/20/2020 CXR IMPRESSION: No acute findings.
== END 2020-12-23 15:14 | disposition home or self-care (01) ==
LOC: ER 08:24 → ICU 14:16 → 2ND 14:16
PROVIDERS: Admitting Provider Family Medicine; Emergency Provider Emergency Medicine; Visit Provider Family Medicine
DX: J18.9 Pneumonia, unspecified organism (principal); U07.1 COVID-19; I25.10 Atherosclerotic heart disease of native coronary artery without angina pectoris; I10 Essential (primary) hypertension; E78.5 Hyperlipidemia, unspecified; M06.9 Rheumatoid arthritis, unspecified; Z79.899 Other long term (current) drug therapy; R06.9 Unspecified abnormalities of breathing
CPT/HCPCS: G0378; 71045; 80048; 80053; 81001; 83880; 84436; 84443; 84484; 85007; 85025; 87040; 87070; 87077; 87205; 93005; 94640; 96365; 96367; 96375; 99284; J1956; J2405; U0003

== ENCOUNTER → 2021-01-27 13:02 | Outpatient (CLI) | payer MEDICARE, MEDICAID, SELFPAY ==
--- NOTE | 2021-01-27 13:08 | XR_ITS ---
PROCEDURE: XR CHEST PORTABLE CLINICAL HISTORY: COVID OUTPATIENT COMPARISON: CT CT ANGIO CHEST from 08/12/2019 CR XR CHEST 2V from 12/08/2019 CR XR CHEST PORTABLE from 12/20/2020 CR XR CHEST PORTABLE from 12/21/2020 FINDINGS: There has been a prior CABG. There is borderline cardiomegaly without failure. Mild biapical pleural thickening. There are old left-sided rib fractures. There is some coarsening of the bronchovascular markings which could be related to smoking related lung disease. There is some faint increased density in the left lower lobe possibly due to chronic changes not significantly changed No acute bony abnormalities. IMPRESSION: No definite acute finding. Chronic changes as described above. Dictated by: Reynold Morris MD 01/27/2021 15:09 Reynold Morris MD in OV 01/27/2021 15:09
== END ==
PROVIDERS: PCP Family Medicine; Visit Provider Family Medicine
DX: Z20.822 Contact with and (suspected) exposure to COVID-19 (principal); U07.1 COVID-19
CPT/HCPCS: 71045; C9803; U0003; U0005

== ENCOUNTER → 2021-03-04 17:24 | Outpatient (CLI) | payer MEDICARE, SELFPAY ==
[2021-03-04 19:19] LABS: Basophils % 0.4 % (0.1-2.0); Eosinophils # 0.3 K/mm3 (0.0-0.4); Eosinophils % 2.5 % (0.1-12.0); Hematocrit 32.5 % (42.0-52.0); Hemoglobin 10.4 g/dL (14.1-18.0); Lymphocytes # 1.5 K/mm3 (0.7-4.5); Lymphocytes % 12.9 % (10-50); Mean Corpuscular Hemoglobin 29.7 pg (27.0-31.2); Mean Corpuscular Volume 92.8 fl (80-94); Mean Platelet Volume 8.7 fl (7.4-10.4); Monocytes % 9.2 % (1.7-9.3); Neutrophils # 8.4 K/mm3 (1.8-7.8); Neutrophils % 74.9 % (37.0-80.0); Platelet Count 343 K/mm3 (142-424); Red Cell Distribution Width 18.2 % (11.5-17.5); White Blood Count 11.2 K/mm3 (4.8-10.8)
== END ==
PROVIDERS: PCP Family Medicine; Visit Provider Nurse Practitioner
DX: R06.2 Wheezing (principal)
CPT/HCPCS: 85025; C9803; U0003; U0005

== ENCOUNTER 2021-03-07 17:34 | Inpatient (IN) | payer MEDICARE, MEDICAID, SELFPAY ==
[2021-03-07] VITALS (7 sets, daily range): BP systolic 124–155; BP diastolic 69–80; PULSE 106–114; RESP 17–22; TEMP 37.3–38.6; O2SAT 91–96; BMI 23.7; BMI 21.9
--- NOTE | 2021-03-07 18:27 | XR_ITS ---
PROCEDURE INFORMATION: Exam: XR Pelvis Exam date and time: 03/07/2021 6:27 PM Age: 75 years old Clinical indication: Injury or trauma; Fall; Blunt trauma (contusions or hematomas); Bilateral; Hip TECHNIQUE: Imaging protocol: XR pelvis. Views: 1 or 2 view. COMPARISON: No relevant prior studies available. FINDINGS: Bones/joints: Osteoarthritic changes right hip, moderately severe. Degenerative changes in the lumbar spine. Soft tissues: Unremarkable. IMPRESSION: 1. Osteoarthritic changes right hip, moderately severe. 2. Degenerative changes in the lumbar spine.
--- NOTE | 2021-03-07 18:27 | XR_ITS ---
PROCEDURE INFORMATION: Exam: XR Chest Exam date and time: 03/07/2021 6:27 PM Age: 75 years old Clinical indication: Cough TECHNIQUE: Imaging protocol: XR of the chest. Views: 1 view. COMPARISON: CR XR CHEST PORTABLE 01/27/2021 1:16 PM FINDINGS: Lungs: Left lung infiltrate, new from comparison. Pleural spaces: Unremarkable. No pleural effusion. No pneumothorax. Heart/Mediastinum: Unremarkable. No cardiomegaly. Bones/joints: Median sternotomy. IMPRESSION: Left lung infiltrate, new from comparison.
--- NOTE | 2021-03-07 18:27 | CT_ITS ---
PROCEDURE INFORMATION: Exam: CT Head Without Contrast Exam date and time: 03/07/2021 6:27 PM Age: 75 years old Clinical indication: Injury or trauma; Fall; Blunt trauma (contusions or hematomas) TECHNIQUE: Imaging protocol: Computed tomography of the head without contrast. Radiation optimization: All CT scans at this facility use at least one of these dose optimization techniques: automated exposure control; mA and/or kV adjustment per patient size (includes targeted exams where dose is matched to clinical indication); or iterative reconstruction. COMPARISON: No relevant prior studies available. FINDINGS: Brain: Periventricular and subcortical small vessel ischemic changes. Mild atrophy associated. No acute hemorrhage, mass effect, midline shift, or extra-axial fluid collection. Cerebral ventricles: No ventriculomegaly. Paranasal sinuses: Visualized sinuses are unremarkable. No fluid levels. Mastoid air cells: Visualized mastoid air cells are well aerated. Bones/joints: Unremarkable. No acute fracture. Soft tissues: Unremarkable. IMPRESSION: No acute traumatic intracranial abnormality.
[2021-03-07 18:42] LABS: Basophils # 0.1 K/mm3 (0-0.2); Basophils % 0.6 % (0.1-2.0); Eosinophils # 0.1 K/mm3 (0.0-0.4); Eosinophils % 0.4 % (0.1-12.0); Hematocrit 32.4 % (42.0-52.0); Hemoglobin 10.6 g/dL (14.1-18.0); Lymphocytes # 1.6 K/mm3 (0.7-4.5); Lymphocytes % 12.1 % (10-50); Mean Corpuscular HGB Conc 32.8 g/dL (31.8-35.4); Mean Corpuscular Hemoglobin 29.3 pg (27.0-31.2); Mean Corpuscular Volume 89.4 fl (80-94); Monocytes # 1.2 K/mm3 (0.1-1.0); Monocytes % 8.9 % (1.7-9.3); Neutrophils # 10.6 K/mm3 (1.8-7.8); Platelet Count 309 K/mm3 (142-424); Red Blood Count 3.63 M/mm3 (4.60-6.20); Red Cell Distribution Width 18.4 % (11.5-17.5); White Blood Count 13.6 K/mm3 (4.8-10.8)
[2021-03-07 18:49] LABS: Chloride 102 mmol/L (98-107); Potassium 4.2 mmoL/L (3.5-5.1); Sodium 138 mmol/L (136-145)
[2021-03-07 18:51] LABS: Alanine Aminotransferase 17 U/L (12-78); Alkaline Phosphatase 86 U/L (38-126); Aspartate Amino Transferase 46 U/L (17-59); Bilirubin,Total 0.7 mg/dl (0.2-1.3); Blood Urea Nitrogen 26 mg/dl (9-20); Creatinine Clearance Estimated 61 mL/min (50-200); Estimated Glomerular Filt Rate 65 ml/min (>60); GFR (African American) 79 ML/MIN (>60)
[2021-03-07 18:52] LABS: Albumin Level 4.2 g/dl (3.5-5.0); Albumin/Globulin Ratio 1.4 (1.1-1.8); Anion Gap 13.2 mEq/L (5-15); Carbon Dioxide 27 mmol/L (22.0-30.0); Globulin 3.1 g/dL (1.3-3.2); Glucose 136 mg/dl (74-100); Lipase 92 U/L (23-300); Total Protein,Serum 7.3 g/dl (6.3-8.2)
--- NOTE | 2021-03-07 19:03 | HMH.EDGENADL ---
ED Disposition Clinical Impression: Acute exacerbation of chronic obstructive airways disease Left lower lobe pneumonia Qualifiers: Pneumonia type: due to unspecified organism Qualified Code(s): J18.9 - Pneumonia, unspecified organism Sepsis Qualifiers: Sepsis type: sepsis due to unspecified organism Sepsis acute organ dysfunction status: with acute organ dysfunction Severe sepsis acute organ dysfunction type: acute respiratory failure Acute respiratory failure type: with hypoxia Severe sepsis shock status: without septic shock Qualified Code(s): A41.9 - Sepsis, unspecified organism; R65.20 - Severe sepsis without septic shock; J96.01 - Acute respiratory failure with hypoxia Disposition: Admitted As Inpatient Condition on Discharge: Serious Referrals: Italo Yang MD [Primary Care Provider] - - Critical Care Critical Care Time: No Attestation: On 03/07/21, the high probability of a clinically significant, sudden or life threatening deterioration of the following system(s) required my full and direct attention, intervention and personal management. The time I documented below is in addition to time spent performing reported procedures but includes the following listed in this critical care notation. Medical Decision Making - Medical Records Medical records reviewed: Yes: I reviewed the patient's medical records. - Lavell Inquiry Pt receiving controlled substance: No Vital Signs: 03/07/21 17:34 03/07/21 18:11 Temperature 101.4 F H Temperature Source Oral Pulse Rate 106 H Pulse Rate [Right Radial] 114 H Respiratory Rate 18 17 Blood Pressure 151/80 H Blood Pressure [Right Arm] 155/71 H Blood Pressure Mean 103 Blood Pressure Mean [Right Arm] 99 Blood Pressure Source [Right Arm] Automatic Cuff Blood Pressure Position [Right Arm] Sitting 02 Sat by Pulse Oximetry 92 L 95 Oxygen Delivery Method Nasal Cannula Oxygen Flow Rate (LPM) 2 - Lab Data Lab Results 03/07/21 18:27: WBC 13.6 H, RBC 3.63 L, Hgb 10.6 L, Hct 32.4 L, MCV 89.4, MCH 29.3, MCHC 32.8, RDW 18.4 H, Plt Count 309, MPV 8.0, Neut % (Auto) 78.0, Lymph % (Auto) 12.1, [place] % (Auto) 8.9, Eos % (Auto) 0.4, Baso % (Auto) 0.6, Neut # (Auto) 10.6 H, Lymph # (Auto) 1.6, [place] # (Auto) 1.2 H, Eos # (Auto) 0.1, Baso # (Auto) 0.1 03/07/21 18:27: Sodium 138, Potassium 4.2, Chloride 102, Carbon Dioxide 27, Anion Gap 13.2, BUN 26 H, Creatinine 1.10, Estimated Creat Clear 61, Estimated GFR 65, Est GFR ( Amer) 79, Glucose 136 H, Calcium 9.0, Total Bilirubin 0.7, AST 46, ALT 17, Alkaline Phosphatase 86, Total Protein 7.3, Albumin 4.2, Globulin 3.1, Albumin/Globulin Ratio 1.4, Lipase 92 Result diagrams: 03/07/21 18:27 03/07/21 18:27 Orders (Tests/Meds): ED MEDICATIONS Generic Name Dose Route Start Last Admin Trade Name Freq PRN Reason Stop Dose Admin Sodium Chloride 1,000 mls @ 999 mls/hr 03/07/21 18:30 03/07/21 18:20 Sod Chlor 0.9% 1000ml Bag IV 03/07/21 19:30 999 mls/hr .Q1H1M ABBIE Administration Sodium Chloride 2,260 mls @ 1,130 mls/hr 03/07/21 19:00 03/07/21 19:22 Sod Chlor 0.9% 1000ml Bag 30 ml/kg infuse over 2 hr (2260 ml) 03/07/21 20:59 1,130 mls/hr IV Administration .Q2H ONE Piperacillin Sod/Tazobactam 100 mls @ 200 mls/hr 03/07/21 19:00 Sod 4.5 gm/ Sodium Chloride IV 03/21/21 18:59 Q8H ABBIE Vancomycin/PEG/NADA/Lysine/Water 1.5 gm in 300 mls @ 150 mls/hr 03/07/21 20:00 Vancomycin 1.5gm/300ml (Peg) Premix IV 03/21/21 19:59 Q18H ABBIE Miscellaneous 1 each 03/07/21 19:00 03/07/21 19:22 Vancomycin Consult Request * 04/06/21 18:59 1 each CONSULT PHARMACY ABBIE Administration Discontinued Medications Generic Name Dose Route Start Last Admin Trade Name Freq PRN Reason Stop Dose Admin Acetaminophen 650 mg 03/07/21 18:18 03/07/21 18:20 Acetaminophen 650mg Suppository RC 03/07/21 18:19 650 mg ONCE ONE Administration Ondansetron HCl 4 mg 03/07/21 18:18
--- NOTE | 2021-03-07 19:20 | PC.NURSE ---
stamping machine operator paging sew on operator for dr huff per ER request
--- NOTE | 2021-03-07 19:22 | PC.NURSE ---
WALLACE CUEVA speaking with Dr. Yang
[2021-03-07 19:29] LABS: Coronavirus 19, PCR Not Detected (NotDetected); Influenza A, PCR Not Detected (NotDetected); Influenza B, PCR Not Detected (NotDetected)
--- NOTE | 2021-03-07 19:40 | PC.NURSE ---
notified data warehouse consultant of admission
[2021-03-07 20:05] LABS: Lactic Acid 0.9 mmol/L (0.7-2.1)
--- NOTE | 2021-03-07 20:42 | PC.NURSE ---
Pt unable to confirm home meds at this time
--- NOTE | 2021-03-07 20:46 | PC.NURSE ---
patient up to floor via stretcher @ this time.
--- NOTE | 2021-03-07 23:59 | PC.NURSE ---
pt noted to be very anxious. O2 dropped to the mid 70s. placed on 5L via simple mask. O2 increased to 90%. notified automation consultant, Dr. Yang. No new orders at this time.
[2021-03-08] VITALS (17 sets, daily range): BP systolic 96–159; BP diastolic 46–84; PULSE 81–122; RESP 20–24; TEMP 36.6–40.9; O2SAT 80–901; BMI 21.9
--- NOTE | 2021-03-08 03:04 | PC.NURSE ---
PT HAD TO USE THE BATHROOM. UPON HELPING PT VOID, FELT THAT HE WAS VERY HOT TO TOUCH AND NOT RESPONSIVE HE HAS BEEN. CHECKED TEMP RECTALLY- 105.7. IMMEDIATELY STARTED ACTIVE COOLING MEASURES. PLACED ICE PACKS TO GROIN, NECK AND UNDER ARMS. COLD RAGS PLACED TO FOREHEAD. FAN IN ROOM AND ROOM TEMP LOWERED. REMOVED SOCKS AND TEDS. ADMINISTERED 650 MG TYLENOL PER MAR. CONTACTED ELECTROCARDIOGRAPH REPAIRER MD GUAN WHO ORDERED 600 MG IBUPROFEN Q6H- ADMINISTERED IMMEDIATELY. ALSO ORDERED F/C PLACEMENT. 16 TRINIDADIAN F/C PLACED, STERILE URINE COLLECTED AND SENT TO LAB FOR U/A. PT IS A&OX4, FOLLOWING COMMANDS AT THIS TIME. WILL STAY IN ROOM WITH PT UNTIL SAFE TEMP IS REACHED. WILL CONTINUE ACTIVE COOLING MEASURES AND RE-CHECK TEMP Q15 MINS.
[2021-03-08 03:18] LABS: Microscopic, Urine URINE MICROSCOPIC (MICROSCOPIC)
[2021-03-08 03:20] LABS: Appearance,Urine SL CLOUDY (Clear); Bilirubin,Urine Negative (Negative); Blood, Urine 2+ (Negative); Color,Urine YELLOW (Yellow); Glucose,Urine (UA) Negative (Negative); Ketones,Urine 1+ (Negative); Leukocyte Esterase,Urine Negative (Negative); Nitrate,Urine Negative (Negative); PH,Urine 5.5 (5.0-8.5); Protein,Urine TRACE (Negative); Specific Gravity, Urine 1.025 (1.005-1.030); Urobilinogen,Urine 0.2 EU/dl (0.2)
[2021-03-08 03:27] LABS: Amorphous Sediment,Urine 4+ /lpf; Coarse Granular Casts,Urine Occasional #/lpf (0); Mucus,Urine 1+ /lpf
--- NOTE | 2021-03-08 04:07 | PC.NURSE ---
SEIZURE PADS IN PLACE PER INCREASED TEMP.
[2021-03-08 07:33] LABS: Basophils % 0.3 % (0.1-2.0); Eosinophils % 0.3 % (0.1-12.0); Hematocrit 28.6 % (42.0-52.0); Lymphocytes # 1.1 K/mm3 (0.7-4.5); Lymphocytes % 9.8 % (10-50); Mean Corpuscular HGB Conc 31.9 g/dL (31.8-35.4); Mean Corpuscular Hemoglobin 29.1 pg (27.0-31.2); Mean Platelet Volume 7.9 fl (7.4-10.4); Monocytes # 0.8 K/mm3 (0.1-1.0); Monocytes % 6.8 % (1.7-9.3); Neutrophils # 9.5 K/mm3 (1.8-7.8); Neutrophils % 82.8 % (37.0-80.0); Platelet Count 249 K/mm3 (142-424); Red Blood Count 3.15 M/mm3 (4.60-6.20); Red Cell Distribution Width 18.5 % (11.5-17.5); White Blood Count 11.4 K/mm3 (4.8-10.8)
[2021-03-08 07:47] LABS: Alanine Aminotransferase 15 U/L (12-78); Albumin Level 2.9 g/dl (3.5-5.0); Albumin/Globulin Ratio 1.1 (1.1-1.8); Alkaline Phosphatase 53 U/L (38-126); Anion Gap 12.5 mEq/L (5-15); Aspartate Amino Transferase 52 U/L (17-59); Bilirubin,Total 0.6 mg/dl (0.2-1.3); Blood Urea Nitrogen 19 mg/dl (9-20); Carbon Dioxide 20 mmol/L (22.0-30.0); Chloride 114 mmol/L (98-107); Creatinine Clearance Estimated 62 mL/min (50-200); Estimated Glomerular Filt Rate 72 ml/min (>60); GFR (African American) 88 ML/MIN (>60); Globulin 2.7 g/dL (1.3-3.2); Glucose 97 mg/dl (74-100); Potassium 3.5 mmoL/L (3.5-5.1); Sodium 143 mmol/L (136-145); Total Protein,Serum 5.6 g/dl (6.3-8.2)
[2021-03-08 07:55] LABS: Hemoglobin 9.2 g/dL (14.1-18.0)
--- NOTE | 2021-03-08 08:23 | HMH.PHAVTE ---
[facility] Pharmacy VTE Monitoring - Patient Demographics Admission date: 03/07/21 Report Date: 03/08/21 Time: 08:23 Allergies/Adverse Reactions: Patient Allergies aspirin [ASPIRIN] Adverse Reaction (Mild, Verified 08/12/18 11:59) Height: 1.8 m Weight: 71.271 kg Patient Problems: Current Active Problems Acute exacerbation of chronic obstructive airways disease (Acute) Left lower lobe pneumonia (Acute) Sepsis (Acute) - VTE Risk Labs: VTE Related Lab Results Hgb 9.2 g/dL (14.1-18.0) L D 03/08/21 06:58 Hct 28.6 % (42.0-52.0) L 03/08/21 06:58 Plt Count 249 K/mm3 (142-424) 03/08/21 06:58 BUN 19 mg/dl (9-20) D 03/08/21 06:58 Creatinine 1.00 mg/dl (0.66-1.25) 03/08/21 06:58 Estimated Creat Clear 62 mL/min (50-200) 03/08/21 06:58 Was VTE Risk Assessment Performed: No Clinical Trial Participant: No - Prophylaxis VTE Prophylaxis Ordered?: Yes Types of VTE Prophylaxis: TEDS Knee High, Pharmacological Location of Applied Device: Bilateral Lower Extremeties Pharmacologic Type: Enoxaparin
--- NOTE | 2021-03-08 08:33 | HMH.PHACONS ---
- Pharmacy Consult Date: 03/08/21 Time: 08:33 Referring provider: NIKKI Reason for Consult:: VANCOMYCIN DOSING CONSULT Allergies and ADEs:: Allergies Allergy/AdvReac Type Severity Reaction Status Date / Time aspirin [ASPIRIN] AdvReac Mild Verified 08/12/18 11:59 Home Medications:: Home Medications Medication Instructions Recorded Confirmed Type Albuterol Sulfate [Ventolin HFA 2 puffs IH Q6HP PRN #1 inh 07/28/18 03/08/21 Rx Inhaler] Atorvastatin Calcium [Lipitor 10mg 10 mg PO HS 07/28/18 03/08/21 History Tab] Fluticasone Propionate 1 spray NS BID 07/28/18 03/08/21 History Levobunolol HCl [Betagan 0.5% 10mL 1 drop EYE-BOTH BID 07/28/18 03/07/21 History opth nicolette] Metoprolol Tartrate 50 mg PO BID 07/28/18 03/07/21 History Sertraline HCl [Zoloft 50mg tablet] 50 mg PO DAILY 07/28/18 03/07/21 History metHOTREXate sodium [metHOTREXate 17.5 mg PO WEEKLY 07/28/18 03/07/21 History 2.5mg Tablet] Aspirin [Aspir-Low] 81 mg PO DAILY 08/12/18 03/08/21 History Esomeprazole Magnesium 40 mg PO DAILY 08/12/18 03/08/21 History Folic Acid [Folic Acid 1mg tablet] 1 mg PO DAILY 08/12/18 03/07/21 History Montelukast Sodium [Montelukast 10 mg PO HS 08/12/18 03/07/21 History 10mg Tab] predniSONE [Prednisone 5mg 5 mg PO DAILY 08/12/18 03/07/21 History Tab] Loratadine/Pseudoephedrine 1 each PO DAILY 08/11/19 03/07/21 History [Claritin-D 24 Hour Tablet] Celecoxib [Celebrex 200mg cap] 200 mg PO DAILY 12/20/20 03/08/21 History levoFLOXacin [Levaquin 500mg 500 mg PO DAILY 03/08/21 03/07/21 History tab] Height: 1.8 m Weight: 71.271 kg Laboratory Results:: Laboratory Results - last 24 hr 03/07/21 18:27: WBC 13.6 H, RBC 3.63 L, Hgb 10.6 L, Hct 32.4 L, MCV 89.4, MCH 29.3, MCHC 32.8, RDW 18.4 H, Plt Count 309, MPV 8.0, Neut % (Auto) 78.0, Lymph % (Auto) 12.1, [place] % (Auto) 8.9, Eos % (Auto) 0.4, Baso % (Auto) 0.6, Neut # (Auto) 10.6 H, Lymph # (Auto) 1.6, [place] # (Auto) 1.2 H, Eos # (Auto) 0.1, Baso # (Auto) 0.1 03/07/21 18:27: Sodium 138, Potassium 4.2, Chloride 102, Carbon Dioxide 27, Anion Gap 13.2, BUN 26 H, Creatinine 1.10, Estimated Creat Clear 61, Estimated GFR 65, Est GFR ( Amer) 79, Glucose 136 H, Calcium 9.0, Total Bilirubin 0.7, AST 46, ALT 17, Alkaline Phosphatase 86, Total Protein 7.3, Albumin 4.2, Globulin 3.1, Albumin/Globulin Ratio 1.4, Lipase 92 03/07/21 19:21: SARS-CoV-2 (PCR) Not detected, Influenza A Untype (PCR) Not detected, Influenza Type B (PCR) Not detected 03/07/21 19:32: Lactate 0.9 03/08/21 02:55: Urine Color Yellow, Urine Appearance Sl cloudy, Urine pH 5.5, Ur Specific [place] 1.025, Urine Protein Trace, Urine Glucose (UA) Negative, Urine Ketones 1+, Urine Blood 2+, Urine Nitrate Negative, Urine Bilirubin Negative, Urine Urobilinogen 0.2, Ur Leukocyte Esterase Negative, Urine RBC 5-10, Amorphous Sediment 4+, Coarse Granular Casts Occasional, Urine Mucus 1+ 03/08/21 06:58: WBC 11.4 H, RBC 3.15 L, Hgb 9.2 L D, Hct 28.6 L, MCV 91.0, MCH 29.1, MCHC 31.9, RDW 18.5 H, Plt Count 249, MPV 7.9, Neut % (Auto) 82.8 H, Lymph % (Auto) 9.8 L, [place] % (Auto) 6.8, Eos % (Auto) 0.3, Baso % (Auto) 0.3, Neut # (Auto) 9.5 H, Lymph # (Auto) 1.1, [place] # (Auto) 0.8, Eos # (Auto) 0.0, Baso # (Auto) 0.0 03/08/21 06:58: Sodium 143, Potassium 3.5, Chloride 114 H, Carbon Dioxide 20 L, Anion Gap 12.5, BUN 19 D, Creatinine 1.00, Estimated Creat Clear 62, Estimated GFR 72, Est GFR ( Amer) 88, Glucose 97 D, Calcium 7.0 L, Total Bilirubin 0.6, AST 52, ALT 15, Alkaline Phosphatase 53, Total Protein 5.6 L, Albumin 2.9 L D, Globulin 2.7, Albumin/Globulin Ratio 1.1 Medical History: Reports:: Chronic Obstructive Pulmonary Disease (COPD), Coronary Artery Disease, Depression, Gastroesophageal Reflux Disease(GERD), Hyperlipidemia, Hypertension, Myocardial Infarction Denies:: Diabetes Mellitus Type 1, Diabetes Mellitus Type 2 Assessment and Plan - Assessment and plan all Dx Assessment and Plan for all problems
--- NOTE | 2021-03-08 08:43 | HMH.PHAINT ---
MEDICATION RECONCILIATION COMPLETE USING EXTERNAL PHARMACY FILL HISTORY AND MOST RECENT DISCHARGE LIST.
--- NOTE | 2021-03-08 09:11 | HMH.HP ---
*Admission Date: 03/07/21 <Herminia Araujo - 03/08/21 09:26> *Chief complaint: weakness, nausea, dizziness, achy <GeneHerminia fox - 03/08/21 09:26> *History of present illness: Mr. Ruiz is a 75-year-old male who just recently had an admission due to Covid pneumonia. He has been weak ever since he had Covid and has done a few telehealths with Dr. Solano and Polly Hopper. Over the course of the past few weeks he has been on Amoxicillin, a medrol dose pack, and cefdinir for sinusitis. His last telehealth with Polly was on 03/06/2021 and he had begun vomiting and fell and hit his head. He was given a prescription for Zofran. He says approximately 3 days ago he began feeling like he had the flu. He says he was achy, coughing, nauseated, had one episode of vomiting, he felt dizzy, and he had a headache. He has not been eating and drinking for the past 3 days. He apparently had a fall at home and a neighbor heard him and called the ambulance. They came and found him on the floor and it was unknown how long he was laying there. He was slightly hypoxic, tachycardic, and had a fever. He was transported to the emergency room for further evaluation. The ER doctor was concerned for sepsis and placed him on oxygen and initiated the sepsis protocol. He was started on broad-spectrum antibiotics. He had a chest x-ray showing a left-sided pneumonia and was therefore admitted. This morning he generally feels poorly. He had a documented fever of 105.7 throughout the night. His temperature is now down to 98.2. He started off on 2 L of nasal oxygen, but due to decreasing sats, his oxygen was increased and he is now on 6 L with a sat of 91%. <Herminia Araujo - 03/08/21 09:26> [facility] History I have reviewed the patient's past medical history: Yes <GeneruddyHerminia - 03/08/21 09:26> Medical History: Reports:: Chronic Obstructive Pulmonary Disease (COPD), Coronary Artery Disease, Depression, Gastroesophageal Reflux Disease(GERD), Hyperlipidemia, Hypertension, Myocardial Infarction Denies:: Diabetes Mellitus Type 1, Diabetes Mellitus Type 2 <Herminia Araujo 03/08/21 09:26> *Have you ever received a pneumonia vaccine?: No <Herminia Araujo 03/08/21 09:26> *Have you received a flu vaccine this season?: Yes <Herminia Araujo 03/08/21 09:26> Other Medical History: Reports: Anemia, Cataracts, Glaucoma, Sinus Problems, Other (RA, colon polyps, Covid) <Herminia Araujo 03/08/21 09:26> Other Surgeries: Yes: CABG, Colonoscopy, Other (right hand, right elbow) <Herminia Araujo 03/08/21 09:26> Amputation: No <Herminia Araujo 03/08/21 09:26> Fractures: No <Herminia Araujo 03/08/21 09:26> - *Social History Last grade of school completed: High school graduate <Herminia Araujo 03/08/21 09:26> Smoking Status: Current every day smoker <Herminia Araujo 03/08/21 09:26> Tobacco Type: smokeless tobacco <Herminia Araujo 03/08/21 09:26> # Packs/Day (cigarettes): 1 <Herminia Araujo 03/08/21 09:26> Alcohol Intake: never <Herminia Araujo 03/08/21 09:26> Alcohol Intake Frequency:: other <Herminia Araujo 03/08/21 09:26> Substance Use Type: denies use <Herminia Araujo 03/08/21 09:26> *Occupational Status:: retired <Herminia Araujo 03/08/21 09:26> Housing: apartment <Herminia Araujo 03/08/21 09:26> Household Members: none <Herminia Araujo 03/08/21 09:26> *Travel in the last 8 weeks: None <Herminia Araujo 03/08/21 09:26> - Psychiatric History Pschychiatric History:: Reports:: Depression <Herminia Araujo 03/08/21 09:26> Family Hx:: No significant family history <Herminia Araujo 03/08/21 09:26> Review of Systems - Constitutional Reports body ache(s), Reports chills, Reports fatigue, Reports fever(s), Reports weakness <Herminia Araujo - 03/08/21 09:26> - Eyes Denies blurry vision, Denies double vision <Herminia Araujo - 03/08/21 09:26> - ENT Reports nasal congestion, Denies sore throat <Herminia Araujo - 03/08/21 09:26> - *Cardiovascular Denies chest pain, [place]
--- NOTE | 2021-03-08 14:48 | ECG_ITS ---
APPROVED REPORT Exam: Resting ECG HR:110 bpm ECG Measurements Heart Rate 110 AXES HI 150 P 43 QRSd 94 QRS -20 QT 344 T 37 QTc 465 Conclusion Sinus tachycardia Otherwise normal ECG Electronically signed by : Zach Hall MD 03/09/2021 08:31:31
[2021-03-08 15:01] LABS: ABG Base Excess -7.1 mmol/L (-2.4-2.3); ABG HCO3 18.1 mmhg (22.0-26.0); ABG Oxygen Saturation 85 % (90-100); ABG PH 7.37 mmol/L (7.35-7.45); ABG TCO2 19.1 mmhg (23-27)
--- NOTE | 2021-03-08 15:02 | PC.NURSE ---
SPO2 decreased to 77%, pt placed on non-rebreather.
[2021-03-08 15:05] LABS: Allen's Test Non Applicable; Source Left Brachial
[2021-03-08 15:06] LABS: ABG PO2 49.5 mmhg (80-100)
--- NOTE | 2021-03-08 15:55 | PC.NURSE ---
Addendum entered by Arti Han RN 03/08/21 18:45: PT WAS AGGRAVATED WITH THE NON REBREATHER MASK AND HAS BEEN CHANGED OVER TO VAPOTHERM 30 L AND 100% FIO2. Original Note: AT 1330 PT CALLED OUT AND STATED HE NEEDED ASSISTANCE WITH ADJUSTING THE BED. AFTER ENTERING THE ROOM PT WAS OBVIOUSLY VERY UNCOMFORTABLE. PT STATED HE WOULD LIKE TO GET OOB. PT WAS 2 ASSIST TO GET UP TO THE CHAIR. WHILE SITTING IN THE CHAIR PT STATED HE WAS SOMEWHAT MORE COMFORTABLE. PT'S O2 SATURATION WAS 78% ON 6 L NC. ORAL TEMP 97.6. 50% VENTI MASK APPLIED WHICH IMPROVED O2 SATURATION 84-88%. NOTIFIED (ABG ORDERED AND IVF'S DECREASED TO 100). AFTER SEVERAL MINUTES PT STARTED TO DESAT TO THE 70'S WHILE ON THE 50% VENTI. 100% NON REBREATHER WAS APPLIED AND PT WAS PUT BACK TO BED. O2 SATURATION 90-92% HOWEVER PT STATES HE FEELS LIKE THE MASK IS MORE SMOTHERING. NOTIFIED ABOUT ABG RESULTS (LASIX, SOLUMEDROL AND DUONEBS ORDERED) WHILE ADMINISTERING MEDS PT STARTED TO CHILL. RECTAL TEMP WAS 101.2 (TYLENOL GIVEN) PT WAS TACHYCARDIC 110-118. PT WAS COMPLAINING OF DISCOMFORT IN THE LEFT SIDE THAT HE STATES HAS BEEN BOTHERING HIM SINCE HE FELL AT HOME (MORPHINE GIVEN FOR DISCOMFORT) WILL CONTINUE TO MONITOR.
[2021-03-09] VITALS (14 sets, daily range): BP systolic 117–149; BP diastolic 68–81; PULSE 85–110; RESP 18–22; TEMP 36.5–36.7; O2SAT 89–94; BMI 22.7
--- NOTE | 2021-03-09 | ECG_ITS ---
APPROVED REPORT Exam: Resting ECG HR:111 bpm ECG Measurements Heart Rate 111 AXES NV 152 P 68 QRSd 94 QRS -9 QT 354 T 61 QTc 481 Conclusion Sinus tachycardia Nonspecific ST abnormality Abnormal ECG Electronically signed by : Zach Hall MD 03/10/2021 20:17:07
--- NOTE | 2021-03-09 04:29 | PC.NURSE ---
no acute changes overnight. Pt remains on vapotherm, 35L, 100%. Pt has been agitated and restless this shift, 0.5 lorazepam given with favorable results. Pt has c/o persistant cough and thick secretions that have been hard for him to clear. pt is very anxious, not wanting to leave vapotherm on. Morphine given per mar for c/o cough related pain in chest and back pain. Bed safety is on, VSS, call light in reach, no concerns at this time.
[2021-03-09 07:41] LABS: Alanine Aminotransferase 22 U/L (12-78); Albumin Level 3.2 g/dl (3.5-5.0); Alkaline Phosphatase 76 U/L (38-126); Anion Gap 14.5 mEq/L (5-15); Aspartate Amino Transferase 64 U/L (17-59); Bilirubin,Total 0.4 mg/dl (0.2-1.3); Blood Urea Nitrogen 28 mg/dl (9-20); Calcium 8.3 mg/dl (8.4-10.2); Carbon Dioxide 19 mmol/L (22.0-30.0); Chloride 115 mmol/L (98-107); Creatinine Clearance Estimated 32 mL/min (50-200); Estimated Glomerular Filt Rate 33 ml/min (>60); GFR (African American) 39 ML/MIN (>60); Globulin 3.1 g/dL (1.3-3.2); Glucose 182 mg/dl (74-100); Potassium 3.5 mmoL/L (3.5-5.1); Sodium 145 mmol/L (136-145); Total Protein,Serum 6.3 g/dl (6.3-8.2)
[2021-03-09 08:15] LABS: MANUAL DIFFERENTIAL MANUAL DIFFERENTIAL (MANUAL DIFF)
[2021-03-09 08:17] LABS: Basophils % 0.2 % (0.1-2.0); Eosinophils % 0.1 % (0.1-12.0); Hematocrit 30.7 % (42.0-52.0); Hemoglobin 9.8 g/dL (14.1-18.0); Lymphocytes # 0.7 K/mm3 (0.7-4.5); Lymphocytes % 5.1 % (10-50); Mean Corpuscular Hemoglobin 29.2 pg (27.0-31.2); Mean Corpuscular Volume 91.3 fl (80-94); Mean Platelet Volume 8.8 fl (7.4-10.4); Monocytes # 0.6 K/mm3 (0.1-1.0); Monocytes % 3.8 % (1.7-9.3); Neutrophils # 13.3 K/mm3 (1.8-7.8); Neutrophils % 90.8 % (37.0-80.0); Platelet Count 274 K/mm3 (142-424); Red Blood Count 3.36 M/mm3 (4.60-6.20); Red Cell Distribution Width 18.4 % (11.5-17.5); White Blood Count 14.6 K/mm3 (4.8-10.8)
--- NOTE | 2021-03-09 08:22 | HMH.ACPN2 ---
Internal Medicine - PN: Subj *Date: 03/09/21 *Time: 08:22 Interval history: He was restless and agitated last evening and did not tolerate the Ventimask. For the last cough. He was switched to Vapotherm but remained quite anxious. He was given a dose of Ativan at bedtime and this did help ease his anxiety some. This morning he feels a bit less short of breath and seems to be tolerating the Vapotherm and his O2 sats have been maintaining in the low 90s. He did eat a few bites of breakfast. He has not been able to produce a sputum. Denies chest pain. Exam Vital signs and Labs for Last 24 Hours: Temp Pulse Resp BP Pulse Ox 97.9 F 99 H 21 117/68 89 L 03/09/21 08:00 03/09/21 08:00 03/09/21 08:00 03/09/21 08:00 03/09/21 08:00 Laboratory Results - last 24 hr 03/08/21 14:19: Specimen Source Left brachial, O2 % 50% venti, ABG pH 7.37, ABG pCO2 32.0 L, ABG pO2 49.5 L, ABG HCO3 18.1 L, ABG Total CO2 19.1 L, ABG O2 Saturation 85 L*, ABG Base Excess -7.1 L, Reynold Test Non applicable 03/09/21 06:36: Sodium 145, Potassium 3.5, Chloride 115 H, Carbon Dioxide 19 L, Anion Gap 14.5, BUN 28 H D, Creatinine 2.00 H D, Estimated Creat Clear 32, Estimated GFR 33 L, Est GFR ( Amer) 39 L D, Glucose 182 H D, Calcium 8.3 L, Total Bilirubin 0.4, AST 64 H, ALT 22 D, Alkaline Phosphatase 76, Total Protein 6.3, Albumin 3.2 L D, Globulin 3.1, Albumin/Globulin Ratio 1.0 L 03/09/21 06:36: WBC 14.6 H D, RBC 3.36 L, Hgb 9.8 L, Hct 30.7 L, MCV 91.3, MCH 29.2, MCHC 32.0, RDW 18.4 H, Plt Count 274, MPV 8.8, Neut % (Auto) 90.8 H, Lymph % (Auto) 5.1 L, [place] % (Auto) 3.8, Eos % (Auto) 0.1, Baso % (Auto) 0.2, Neut # (Auto) 13.3 H, Lymph # (Auto) 0.7, [place] # (Auto) 0.6, Eos # (Auto) 0.0, Baso # (Auto) 0.0 I & O for Last 24 hours: Intake & Output 03/06/21 03/07/21 03/08/21 03/09/21 11:59 11:59 11:59 11:59 Intake Total 300 / 300 Output Total 1850 / 1850 Balance -1550 / -1550 Weight 157 lb 2.01 oz 162 lb 9.6 oz Narrative: He is resting in bed with Vapotherm in place. He is alert and oriented. BS improved on right with fewer rhonchi; diminished on left. No wheezes. Heart is regular. abdomen soft and NT. Ext with no edema. Assessment and Plan (1) Left lower lobe pneumonia Status: Acute Qualifiers: Pneumonia type: due to unspecified organism Qualified Code(s): J18.9 - Pneumonia, unspecified organism Category: Medical Code(s): J18.9 - Pneumonia, unspecified organism (2) SIRS (systemic inflammatory response syndrome) Status: Acute Category: Medical Code(s): R65.10 - Systemic inflammatory response syndrome (SIRS) of non-infectious origin without acute organ dysfunction (3) History of COVID-19 Status: Chronic Category: Medical Code(s): Z86.16 - Personal history of COVID-19 (4) Environmental allergies Status: Chronic Category: Medical Code(s): Z91.09 - Other allergy status, other than to drugs and biological substances (5) Coronary artery disease Status: Chronic Category: Medical Code(s): I25.10 - Atherosclerotic heart disease of [place] coronary artery without angina pectoris (6) Hyperlipemia Status: Chronic Category: Medical Code(s): E78.5 - Hyperlipidemia, unspecified (7) Hypertension Status: Chronic Category: Medical Code(s): I10 - Essential (primary) hypertension (8) Rheumatoid arthritis Status: Chronic Category: Medical Code(s): M06.9 - Rheumatoid arthritis, unspecified - Assessment and plan all Dx Assessment and Plan for all problems:: Continue antibiotics and current Vapotherm settings. Continue Ativan prn for anxiety. Awaiting cultures. WBC has increased possibly as result of steroids. Creatinine also increased to 2.0. Will monitor. Resume some of his home meds. Up in chair as tolerated.
[2021-03-09 09:54] LABS: Lymphocytes % 4 % (10-50); Monocytes % 6 % (2-9); Neutrophils % 90 % (42-76); Total Cells Counted 100
[2021-03-09 09:56] LABS: Platelet Estimate Normal; RBC Morphology Normal
--- NOTE | 2021-03-09 12:41 | PC.NURSE ---
Specimen cup left at bedside.
--- NOTE | 2021-03-09 13:16 | PC.NURSE ---
PT IS RESTING IN BED. TOLERATED SITTING UP IN THE CHAIR FOR A FEW HOURS THIS SHIFT. ALERT AND ORIENTED X4. EATING SOMEWHAT BETTER TODAY. PT'S ONLY COMPLAINT IS THAT THE VAPOTHERM IS REALLY GETTING ON HIS NERVES. O2 SATURATION MAINTAINING 90-94% ON 35L 100% FIO2. LUNG SOUNDS DIMINISHED WITH BILATERAL CRACKLES. ABDOMEN SOFT/NON TENDER WITH ACTIVE BOWEL SOUNDS. SINUS TACH ON TELEMETRY. WILL CONTINUE TO MONITOR.
[2021-03-10] VITALS (27 sets, daily range): BP systolic 87–150; BP diastolic 49–86; PULSE 78–120; RESP 14–32; TEMP 36.3–36.8; O2SAT 85–98; BMI 22.7
--- NOTE | 2021-03-10 01:58 | XR_ITS ---
PROCEDURE INFORMATION: Exam: XR Chest Exam date and time: 03/10/2021 1:58 AM Age: 75 years old Clinical indication: Shortness of breath; Additional info: Increased o2 requirements pneumonia TECHNIQUE: Imaging protocol: XR of the chest. Views: 1 view. COMPARISON: CR XR CHEST PORTABLE 03/07/2021 6:52 PM FINDINGS: Lungs: Extensive airspace disease is present throughout both lungs, with findings in the right lung substantially progressed since recent prior exam of 03/07/2021. Pleural spaces: Small left greater right pleural effusions. No pneumothorax. Heart/Mediastinum: Chronic cardiomegaly. Bones/joints: Sternotomy wires. Multilevel spondylosis. Bilateral AC joint degenerative changes. Sternotomy wires. IMPRESSION: 1. Extensive bilateral airspace disease, substantially progressed on the right since 03/07/2021. Findings appear most compatible with multifocal pneumonia. 2. Small bilateral pleural effusions.
[2021-03-10 02:16] LABS: Vancomycin,Trough 22.9 ug/mL (5.0-10.0)
--- NOTE | 2021-03-10 02:23 | PC.NURSE ---
Spoke with Rebeca at [facility], called to report vanc trough 22.9 per [facility] hold 02:00 dose.
[2021-03-10 02:24] LABS: ABG Base Excess -11.9 mmol/L (-2.4-2.3); ABG HCO3 15.1 mmhg (22.0-26.0); ABG Oxygen Saturation 88 % (90-100); ABG PH 7.27 mmol/L (7.35-7.45); ABG PO2 57.2 mmhg (80-100); ABG TCO2 16.1 mmhg (23-27)
[2021-03-10 02:25] LABS: Allen's Test Y; Oxygen 100 %; Source R/R
--- NOTE | 2021-03-10 04:34 | PC.NURSE ---
Pt was placed on bipap around 03:00 per . O2 saturation has improved and remains mid 90's when pt leaves the mask alone. Pt has became very confused t/o shift but can be reoriented. Farris remains in place. Lungs sound course crackles t/o shift. Pt was given 40mg of Lasix and did not have much urine output, was notified.
[2021-03-10 04:36] LABS: MANUAL DIFFERENTIAL MANUAL DIFFERENTIAL (MANUAL DIFF)
[2021-03-10 04:38] LABS: Basophils # 0.1 K/mm3 (0-0.2); Basophils % 0.4 % (0.1-2.0); Eosinophils % 0.1 % (0.1-12.0); Hematocrit 31.7 % (42.0-52.0); Hemoglobin 10.4 g/dL (14.1-18.0); Lymphocytes % 4.8 % (10-50); Mean Corpuscular HGB Conc 32.7 g/dL (31.8-35.4); Mean Corpuscular Hemoglobin 30.4 pg (27.0-31.2); Mean Corpuscular Volume 92.8 fl (80-94); Monocytes # 0.8 K/mm3 (0.1-1.0); Monocytes % 3.8 % (1.7-9.3); Neutrophils # 18.9 K/mm3 (1.8-7.8); Neutrophils % 90.8 % (37.0-80.0); Platelet Count 328 K/mm3 (142-424); Red Blood Count 3.41 M/mm3 (4.60-6.20); Red Cell Distribution Width 18.3 % (11.5-17.5)
[2021-03-10 04:42] LABS: Chloride 112 mmol/L (98-107); Potassium 3.9 mmoL/L (3.5-5.1); Sodium 145 mmol/L (136-145)
[2021-03-10 04:44] LABS: Alanine Aminotransferase 22 U/L (12-78); Aspartate Amino Transferase 59 U/L (17-59); Blood Urea Nitrogen 50 mg/dl (9-20); Creatinine Clearance Estimated 21 mL/min (50-200); Estimated Glomerular Filt Rate 20 ml/min (>60); GFR (African American) 24 ML/MIN (>60)
[2021-03-10 04:45] LABS: Albumin Level 3.3 g/dl (3.5-5.0); Alkaline Phosphatase 90 U/L (38-126); Anion Gap 19.9 mEq/L (5-15); Bilirubin,Total 0.5 mg/dl (0.2-1.3); Calcium 7.7 mg/dl (8.4-10.2); Carbon Dioxide 17 mmol/L (22.0-30.0); Globulin 3.3 g/dL (1.3-3.2); Total Protein,Serum 6.6 g/dl (6.3-8.2)
[2021-03-10 04:50] LABS: D-Dimer 6.38 ug/mL (0.0-0.5)
[2021-03-10 04:51] LABS: Glucose 141 mg/dl (74-100)
[2021-03-10 04:52] LABS: White Blood Count 20.8 K/mm3 (4.8-10.8)
[2021-03-10 04:54] LABS: Anisocytosis 1+; Lymphocytes % 3 % (10-50); Monocytes % 2 % (2-9); Neutrophils % 81 % (42-76); Platelet Estimate Normal; Rouleaux 2+; Total Cells Counted 100
[2021-03-10 05:07] LABS: Vancomycin,Peak 23.4 ug/ml (11-39)
--- NOTE | 2021-03-10 06:00 | CA_ITS ---
APPROVED REPORT EXAM: Comprehensive 2D, Doppler, and color-flow Echocardiogram Hydrogen Cell Tender: Diana Du CRT Ht: 5 ft 10 in Wt: 162lbs BSA: 1.91 BP: 113/49 mmHg Indications: GERD, CAD, OLD IA, CABG, S/P COVID + 2D Dimensions LVOT 1.86 cm (M/F) 1.5-2.5 LA Volume 34.30 mL LA Volume Index 18.00 mL/m2 (M/F) 16-34 M-Mode Dimensions RVDd 3.32 cm (0.9-2.6) LA Diam 3.71 cm (1.9-4.0) LVDd 3.92 cm (3.5-5.7) Ao Diam 4.80 cm (2.0-3.7) LVDs 2.89 cm (3.5-5.7) IVSd 1.85 cm (0.6-1.1) PWd 1.36 cm (0.6-1.1) EF (Teich) 52.20% FS 26.30% EDV (Teich) 66.70 mL TAPSE 0.89 (<1.7) ESV (Teich) 31.90 mL LV Diastology MED E' 6.60 (< 7 cm/sec) MED A' 15.40 cm/s LAT E' 4.50 (<10 cm/sec) LAT A' 10.80 cm/s Aortic Valve AO Peak GR. 10.70 mmHg Pulmonary Valve PV Peak Velocity 157.00 (50-150 cm/s) Tricuspid Valve TR P. Velocity 330.00 cm/s RAP Estimate 10.00 mmHg RVSP 53.50 mmHg Left Ventricle Technically difficult study because of the patient factors and poor acoustic windows. Left atrium is mildly enlarged, left ventricle is normal size, mild concentric left ventricular hypertrophy, visually estimated ejection fraction 55% with no regional wall motion abnormality, diastolic parameters are inconclusive. Right Ventricle Right atrium and right ventricle mildly enlarged with normal contractility. Aortic Valve Aortic valve is thickened and calcified without Doppler evidence of aortic stenosis or aortic insufficiency. Mitral Valve Mitral valve leaflets are minimally thickened, there is mild mitral regurgitation. Tricuspid Valve Tricuspid valve grossly normal, there is mild tricuspid regurgitation, calculated right ventricular systolic pressure is 56 mmHg. Pulmonic Valve Pulmonic valve is poorly visualized. Great Vessels Aortic root is normal size. Inferior vena cava is normal size with normal inspiratory collapse. Pericardium No significant pericardial effusion noted. Conclusion 1. Mild biatrial enlargement, normal left ventricular size, mild concentric left ventricular hypertrophy, visually estimated ejection fraction 55% with no regional wall motion abnormality in the obtained views, endocardial surfaces are poorly visualized. 2. Mildly enlarged right ventricle with normal contractility. 3. Mild mitral and tricuspid regurgitation, calculated right ventricular systolic pressure 56 mmHg. 4. No significant pericardial effusion noted. 5. Inferior vena cava is normal size with normal inspiratory collapse. Electronically signed by : Micah Blankenship MD 03/10/2021 19:38:52
[2021-03-10 07:44] LABS: ABG Base Excess -15.8 mmol/L (-2.4-2.3); ABG Oxygen Saturation 91 % (90-100); ABG PCO2 29.9 mmhg (35.0-45.0); ABG PH 7.22 mmol/L (7.35-7.45); ABG PO2 69.1 mmhg (80-100); ABG TCO2 12.9 mmhg (23-27)
--- NOTE | 2021-03-10 07:46 | XR_ITS ---
PROCEDURE: XR CHEST PORTABLE CLINICAL HISTORY: intubation COMPARISON: CT CT ANGIO CHEST from 08/12/2019 CR XR CHEST PORTABLE from 01/27/2021 CR XR CHEST PORTABLE from 03/07/2021 CR XR CHEST PORTABLE from 03/10/2021 FINDINGS: 7:57 a.m. Endotracheal tube is in good position 4 cm above the zechariah. Cardiomegaly with prominence of the aortic knob. There is diffuse bilateral alveolar opacification consistent with diffuse pneumonia. No evidence of pneumothorax. No acute bony abnormalities. IMPRESSION: Good position of endotracheal tube. Diffuse bilateral pneumonia unchanged Dictated by: Reynold Morris MD 03/10/2021 09:13 Reynold Morris MD in [facility] 03/10/2021 09:13
[2021-03-10 07:50] LABS: Oxygen 95 %; Vent Rate 20
[2021-03-10 07:51] LABS: Allen's Test Patient Unable; PEEP 9; Pressure Support 9; Source Right Radial
--- NOTE | 2021-03-10 08:27 | XR_ITS ---
PROCEDURE: XR CHEST PORTABLE CLINICAL HISTORY: OG PLACEMENT COMPARISON: CT CT ANGIO CHEST from 08/12/2019 CR XR CHEST PORTABLE from 03/07/2021 CR XR CHEST PORTABLE from 03/10/2021 CR XR CHEST PORTABLE from 03/10/2021 FINDINGS: 8:20 a.m. Endotracheal tube and nasogastric tube are in good position. The endotracheal tube is 4 point 5 cm above the zechariah and the tip of the orogastric tube is in the region of the fundus of the stomach. No change in the diffuse bilateral pneumonia. IMPRESSION: Good position of the nasogastric tube and endotracheal tube. Dictated by: Reynold Morris MD 03/10/2021 08:51 Reynold Morris MD in [facility] 03/10/2021 08:51
--- NOTE | 2021-03-10 08:34 | PC.NURSE ---
Upon initial nursing assessment patient was AMS, pH 7.27, patient on BiPAP with RR in the 30's, Heart rate in the 120's. RN pagealejandrina ross MD-- this is not patient baseline and due to age and current state patient cannot maintain. Intubation recommended. RSI inbation T/O called by MD Maribel at 07:45. Events as follows: Preintubation ABG obtained T/o at 0745 20 mg of Etomidate IV push 100 mg of Succinylcholine IV push ETT 8 24 at the lip Bilateral air sounds present CXR ordered OG placed- 65 at the lip Patient placed on 100% Fio2 ABG read to provider with Bicarb critical- m12. Recommended 2 amps of bicarb IV push. Amps pushed at 0800. RT advised to obtain secondary post-intubation ABG at 08:45. Report given to RAMANA Lopez
[2021-03-10 08:56] LABS: ABG Base Excess -10.8 mmol/L (-2.4-2.3); ABG HCO3 18.1 mmhg (22.0-26.0); ABG Oxygen Saturation 89 % (90-100); ABG PO2 68.8 mmhg (80-100); ABG TCO2 19.8 mmhg (23-27)
[2021-03-10 09:03] LABS: Oxygen 10 %; PEEP 10; Source Right Radial; Tidal Volume 400; Vent Rate 18
[2021-03-10 09:04] LABS: ABG PCO2 54.1 mmhg (35.0-45.0); ABG PH 7.14 mmol/L (7.35-7.45)
--- NOTE | 2021-03-10 09:08 | HMH.PULMCON ---
*Admission Date: 03/07/21 *Reason for consult:: Acute hypoxic respiratory failure *History of present illness: Mr. Sara Dominguez. 75-year-old male history of rheumatoid arthritis on methotrexate, recent diagnosis of COVID-19 pneumonia, not on any inhalers at baseline presented to the hospital with worsening respiratory status febrile episodes will initiate sepsis protocol with broad-spectrum antibiotics, with initially needing 2 L nasal oxygen supplementation, progressively worsening respiratory status needing intubation and mechanical ventilatory support and pulmonary was called for further management. [facility] History Medical History: Reports:: Chronic Obstructive Pulmonary Disease (COPD), Coronary Artery Disease, Depression, Gastroesophageal Reflux Disease(GERD), Hyperlipidemia, Hypertension, Myocardial Infarction Denies:: Diabetes Mellitus Type 1, Diabetes Mellitus Type 2 *Have you ever received a pneumonia vaccine?: No *Have you received a flu vaccine this season?: Yes Other Medical History: Reports: Anemia, Cataracts, Glaucoma, Sinus Problems, Other (RA, colon polyps, Covid) Other Surgeries: Yes: CABG, Colonoscopy, Other (right hand, right elbow) Amputation: No Fractures: No - *Social History Last grade of school completed: High school graduate Smoking Status: Current every day smoker Tobacco Type: smokeless tobacco # Packs/Day (cigarettes): 1 Alcohol Intake: never Alcohol Intake Frequency:: other Substance Use Type: denies use *Occupational Status:: retired Housing: apartment Household Members: none *Travel in the last 8 weeks: None - Psychiatric History Pschychiatric History:: Reports:: Depression Family Hx:: No significant family history ROS - Review of Systems Review of systems:: unable to obtain Intubated and sedated Meds Home Medications Medication Instructions Recorded Confirmed Type Albuterol Sulfate [Ventolin HFA 2 puffs IH Q6HP PRN #1 inh 07/28/18 03/08/21 Rx Inhaler] Atorvastatin Calcium [Lipitor 10mg 10 mg PO HS 07/28/18 03/08/21 History Tab] Fluticasone Propionate 1 spray NS BID 07/28/18 03/08/21 History Levobunolol HCl [Betagan 0.5% 10mL 1 drop EYE-BOTH BID 07/28/18 03/07/21 History opth nicolette] Metoprolol Tartrate 50 mg PO BID 07/28/18 03/07/21 History Sertraline HCl [Zoloft 50mg tablet] 50 mg PO DAILY 07/28/18 03/07/21 History metHOTREXate sodium [metHOTREXate 17.5 mg PO WEEKLY 07/28/18 03/07/21 History 2.5mg Tablet] Aspirin [Aspir-Low] 81 mg PO DAILY 08/12/18 03/08/21 History Esomeprazole Magnesium 40 mg PO DAILY 08/12/18 03/08/21 History Folic Acid [Folic Acid 1mg tablet] 1 mg PO DAILY 08/12/18 03/07/21 History Montelukast Sodium [Montelukast 10 mg PO HS 08/12/18 03/07/21 History 10mg Tab] predniSONE [Prednisone 5mg 5 mg PO DAILY 08/12/18 03/07/21 History Tab] Loratadine/Pseudoephedrine 1 each PO DAILY 08/11/19 03/07/21 History [Claritin-D 24 Hour Tablet] Celecoxib [Celebrex 200mg cap] 200 mg PO DAILY 12/20/20 03/08/21 History Allergies Allergy/AdvReac Type Severity Reaction Status Date / Time aspirin [ASPIRIN] AdvReac Mild Verified 08/12/18 11:59 Exam - Constitutional Constitutional:: Absent: no acute distress, comfortable - HENMT Exam HENMT: Present: normocephalic - Eye Exam Eyes:: Present: normal appearance both eyes and related structures - Respiratory Exam Respiratory:: Present: respiratory distress, rales, rhonchi - Cardiovascular Exam Cardiac:: Present: S1, S2 - GI Exam GI:: Present: soft - Neurological Exam Neurological: Absent: alert, awake, normal cognition - Extremities Exam Extremities: Present: no cyanosis, no clubbing, no edema Internal Medicine - CN: Reslt - Labs CBC & Chem 7: 03/10/21 04:30 03/10/21 04:30 Labs: Short CBC 03/10/21 Range/Units 04:30 WBC 20.8 H* D (4.8-10.8) K/mm3 Hgb 10.4 L (14.1-18.0) g/dL Hct 31.7 L (42.0-52.0) % Plt Count 328 (142-424) K/mm3 BMP 03/10/21
--- NOTE | 2021-03-10 10:13 | CA_ITS ---
APPROVED REPORT Bilateral Lower Extremity Venous Study for DVT. Chemical Dependency Counselor: [place], RVS Indications Hypoxia, COVID+x 2 weeks, elevated D-dimer Vein Imaging CFV (R): compressive, spontaneous, phasic, augmentation SFJ (R): compressive, spontaneous, phasic, augmentation FEM (R): compressive, spontaneous, phasic, augmentation POP (R): compressive, spontaneous, phasic, augmentation PTV (R): compressive, spontaneous, phasic, augmentation GSV (R): compressive, spontaneous, phasic, augmentation SSV (R): compressive, spontaneous, phasic, augmentation Peroneals (R):compressive, spontaneous, phasic, augmentation GAS (R): compressive, spontaneous, phasic, augmentation CFV (L): compressive, spontaneous, phasic, augmentation SFJ (L): compressive, spontaneous, phasic, augmentation FEM (L): compressive, spontaneous, phasic, augmentation POP (L): compressive, spontaneous, phasic, augmentation PTV (L): compressive, spontaneous, phasic, augmentation GSV (L): compressive, spontaneous, phasic, augmentation SSV (L): compressive, spontaneous, phasic, augmentation Peroneals (L):compressive, spontaneous, phasic, augmentation GAS (L): compressive, spontaneous, phasic, augmentation Findings Color flow duplex demonstrates no evidence of DVT of the following bilateral lower extremity Veins:Common Femoral Vein, Femoral Vein, Popliteal Vein, Posterior Tibial Veins, Peroneal Veins. Limited compressions due to patient strain. Negative for DVT. Conclusion Negative for DVT. Electronically signed by : Reynold Morris MD 03/10/2021 15:29:46
--- NOTE | 2021-03-10 10:38 | HMH.PHACONS ---
- Pharmacy Consult Date: 03/10/21 Time: 10:38 Referring provider: DR. HENNESSY Reason for Consult:: VANCOMYCIN LEVELS AND DOSE CHANGE Allergies and ADEs:: Allergies Allergy/AdvReac Type Severity Reaction Status Date / Time aspirin [ASPIRIN] AdvReac Mild Verified 08/12/18 11:59 Home Medications:: Home Medications Medication Instructions Recorded Confirmed Type Albuterol Sulfate [Ventolin HFA 2 puffs IH Q6HP PRN #1 inh 07/28/18 03/08/21 Rx Inhaler] Atorvastatin Calcium [Lipitor 10mg 10 mg PO HS 07/28/18 03/08/21 History Tab] Fluticasone Propionate 1 spray NS BID 07/28/18 03/08/21 History Levobunolol HCl [Betagan 0.5% 10mL 1 drop EYE-BOTH BID 07/28/18 03/07/21 History opth nicolette] Metoprolol Tartrate 50 mg PO BID 07/28/18 03/07/21 History Sertraline HCl [Zoloft 50mg tablet] 50 mg PO DAILY 07/28/18 03/07/21 History metHOTREXate sodium [metHOTREXate 17.5 mg PO WEEKLY 07/28/18 03/07/21 History 2.5mg Tablet] Aspirin [Aspir-Low] 81 mg PO DAILY 08/12/18 03/08/21 History Esomeprazole Magnesium 40 mg PO DAILY 08/12/18 03/08/21 History Folic Acid [Folic Acid 1mg tablet] 1 mg PO DAILY 08/12/18 03/07/21 History Montelukast Sodium [Montelukast 10 mg PO HS 08/12/18 03/07/21 History 10mg Tab] predniSONE [Prednisone 5mg 5 mg PO DAILY 08/12/18 03/07/21 History Tab] Loratadine/Pseudoephedrine 1 each PO DAILY 08/11/19 03/07/21 History [Claritin-D 24 Hour Tablet] Celecoxib [Celebrex 200mg cap] 200 mg PO DAILY 12/20/20 03/08/21 History Height: 1.8 m Weight: 73.754 kg Laboratory Results:: Laboratory Results - last 24 hr 03/10/21 01:35: Vancomycin Trough 22.9 H 03/10/21 01:57: Specimen Source R/r, O2 % 100, ABG pH 7.27 L, ABG pCO2 34.0 L, ABG pO2 57.2 L, ABG HCO3 15.1 L, ABG Total CO2 16.1 L, ABG O2 Saturation 88 L, ABG Base Excess -11.9 L, Reynold Test Y 03/10/21 04:30: Sodium 145, Potassium 3.9, Chloride 112 H, Carbon Dioxide 17 L, Anion Gap 19.9 H, BUN 50 H D, Creatinine 3.10 H D, Estimated Creat Clear 21, Estimated GFR 20 L, Est GFR ( Amer) 24 L D, Glucose 141 H D, Calcium 7.7 L, Total Bilirubin 0.5, AST 59, ALT 22, Alkaline Phosphatase 90, Total Protein 6.6, Albumin 3.3 L, Globulin 3.3 H, Albumin/Globulin Ratio 1.0 L 03/10/21 04:30: WBC 20.8 H* D, RBC 3.41 L, Hgb 10.4 L, Hct 31.7 L, MCV 92.8, MCH 30.4, MCHC 32.7, RDW 18.3 H, Plt Count 328, MPV 10.0, Neut % (Auto) 90.8 H, Lymph % (Auto) 4.8 L, [place] % (Auto) 3.8, Eos % (Auto) 0.1, Baso % (Auto) 0.4, Neut # (Auto) 18.9 H, Lymph # (Auto) 1.0, [place] # (Auto) 0.8, Eos # (Auto) 0.0, Baso # (Auto) 0.1, Total Counted 100, Neutrophils % (Manual) 81 H, Band Neutrophils % 14.0 H, Lymphocytes % (Manual) 3 L, Monocytes % (Manual) 2, Platelet Estimate Normal, Anisocytosis 1+, Rouleaux 2+ 03/10/21 04:30: Vancomycin Peak 23.4 03/10/21 04:30: D-Dimer 6.38 H 03/10/21 07:35: Specimen Source Right radial, O2 % 95, ABG pH 7.22 L*, ABG pCO2 29.9 L, ABG pO2 69.1 L, ABG HCO3 12.0 L, ABG Total CO2 12.9 L, ABG O2 Saturation 91, ABG Base Excess -15.8 L, Reynold Test Patient unable, Vent Rate 20, PEEP 9 03/10/21 08:43: Specimen Source Right radial, O2 % 10, ABG pH 7.14 L*, ABG pCO2 54.1 H, ABG pO2 68.8 L, ABG HCO3 18.1 L, ABG Total CO2 19.8 L, ABG O2 Saturation 89 L, ABG Base Excess -10.8 L, Reynold Test n/a, Vent Rate 18, Tidal Volume 400, PEEP 10 Medical History: Reports:: Chronic Obstructive Pulmonary Disease (COPD), Coronary Artery Disease, Depression, Gastroesophageal Reflux Disease(GERD), Hyperlipidemia, Hypertension, Myocardial Infarction Denies:: Diabetes Mellitus Type 1, Diabetes Mellitus Type 2 Assessment and Plan (1) Left lower lobe pneumonia Status: Acute Qualifiers: Pneumonia type: due to unspecified organism Qualified Code(s): J18.9 - Pneumonia, unspecified organism Category: Medical Code(s): J18.9 - Pneumonia, unspecified organism (2) SIRS (systemic inflammatory response syndrome) Status: Acute Category: Medical Code(s): R65.10 - Systemic inflammato
--- NOTE | 2021-03-10 11:56 | HMH.BRONCH ---
- Procedure: Date: 03/10/21 Patient Date of :: 1945 Procedure Performed:: Bronchoscopy with airway examination and alveolar lavage Indications:: Pneumonia in immunocompromised Performing Provider:: Murray Jang MD Referring Provider:: Dr. Solano Sedation:: Patient intubated and sedated. Given 50 mcg of fentanyl bolus prior to procedure Procedure:: Bronchoscopy with airway examination alveolar lavage: A clean therapeutic bronchoscope advanced the ET tube and airways were examined up to subsegmental bronchi. No evidence of active bleeding or old blood clots noted. No evidence of mucoid secretions noted. Bronchoscopy with bronchoalveolar lavage was performed the right middle lobe medial segment with instillation of 60 cc normal saline with return of 40 cc/h which appeared bloody. After performing this bronchoalveolar lavage was also performed in the left lingula with instillation of 4 sequential aliquots of 20 cc normal saline with return of bloody secretions that appeared increasingly bloody concerning for diffuse alveolar hemorrhage. BAL fluid from the right middle lobe was sent for bacterial fungal AFB stain and culture. BAL fluid from the left lung was sent for bacterial fungal AFB stain and culture along with cytopathology special request to do fungal stainings. We will continue current management along with perform UA with microscopy if concerning for hematuria, will consider starting patient on pulse dose steroids. Patient tolerated the procedure well. No complications noted. Findings:: Please see the procedure note Recommendations:: Please see the procedure note and progress note from today for detailed plan of care Complications:: None Estimated blood obtained (mL): 5
--- NOTE | 2021-03-10 12:16 | HMH.ACPN2 ---
<Polly Hopper - Last Filed: 03/10/21 12:16> Internal Medicine - PN: Subj *Date: 03/10/21 *Time: 12:16 Interval history: Patient remains sedated on mechanical ventilation at this time. Exam Vital signs and Labs for Last 24 Hours: Temp Pulse Resp BP Pulse Ox 97.8 F 81 32 H 143/78 H 93 L 03/10/21 04:00 03/10/21 11:59 03/10/21 10:00 03/10/21 04:00 03/10/21 10:00 Laboratory Results - last 24 hr 03/10/21 01:35: Vancomycin Trough 22.9 H 03/10/21 01:57: Specimen Source R/r, O2 % 100, ABG pH 7.27 L, ABG pCO2 34.0 L, ABG pO2 57.2 L, ABG HCO3 15.1 L, ABG Total CO2 16.1 L, ABG O2 Saturation 88 L, ABG Base Excess -11.9 L, Reynold Test Y 03/10/21 04:30: Sodium 145, Potassium 3.9, Chloride 112 H, Carbon Dioxide 17 L, Anion Gap 19.9 H, BUN 50 H D, Creatinine 3.10 H D, Estimated Creat Clear 21, Estimated GFR 20 L, Est GFR ( Amer) 24 L D, Glucose 141 H D, Calcium 7.7 L, Total Bilirubin 0.5, AST 59, ALT 22, Alkaline Phosphatase 90, Total Protein 6.6, Albumin 3.3 L, Globulin 3.3 H, Albumin/Globulin Ratio 1.0 L 03/10/21 04:30: WBC 20.8 H* D, RBC 3.41 L, Hgb 10.4 L, Hct 31.7 L, MCV 92.8, MCH 30.4, MCHC 32.7, RDW 18.3 H, Plt Count 328, MPV 10.0, Neut % (Auto) 90.8 H, Lymph % (Auto) 4.8 L, [place] % (Auto) 3.8, Eos % (Auto) 0.1, Baso % (Auto) 0.4, Neut # (Auto) 18.9 H, Lymph # (Auto) 1.0, [place] # (Auto) 0.8, Eos # (Auto) 0.0, Baso # (Auto) 0.1, Total Counted 100, Neutrophils % (Manual) 81 H, Band Neutrophils % 14.0 H, Lymphocytes % (Manual) 3 L, Monocytes % (Manual) 2, Platelet Estimate Normal, Anisocytosis 1+, Rouleaux 2+ 03/10/21 04:30: Vancomycin Peak 23.4 03/10/21 04:30: D-Dimer 6.38 H 03/10/21 07:35: Specimen Source Right radial, O2 % 95, ABG pH 7.22 L*, ABG pCO2 29.9 L, ABG pO2 69.1 L, ABG HCO3 12.0 L, ABG Total CO2 12.9 L, ABG O2 Saturation 91, ABG Base Excess -15.8 L, Reynold Test Patient unable, Vent Rate 20, PEEP 9 03/10/21 08:43: Specimen Source Right radial, O2 % 10, ABG pH 7.14 L*, ABG pCO2 54.1 H, ABG pO2 68.8 L, ABG HCO3 18.1 L, ABG Total CO2 19.8 L, ABG O2 Saturation 89 L, ABG Base Excess -10.8 L, Reynold Test n/a, Vent Rate 18, Tidal Volume 400, PEEP 10 I & O for Last 24 hours: Intake & Output 03/08/21 03/09/21 03/10/21 03/11/21 11:59 11:59 11:59 11:59 Intake Total 540 / 540 798 / 798 Output Total 1850 / 1850 800 / 800 Balance -1310 / -1310 -2 / -2 Weight 157 lb 2.01 oz 162 lb 9.6 oz 162 lb 9.596 oz Microbiology Reports for the Last 24 Hours: Microbiology 03/07/21 19:32 Blood Blood Culture - Preliminary NO GROWTH AFTER 48 HOURS 03/07/21 19:32 Blood Blood Culture - Preliminary NO GROWTH AFTER 48 HOURS - Constitutional no acute distress - *Routine Respiratory Exam Present: patient mechanically ventilated, diminished air movement - *Routine Cardiovascular Exam Present: RRR - *Routine Abdominal Exam Present: soft, normoactive bowel sounds. Absent: distended - *Routine Extremities Exam Present: pulses intact. Absent: edema, extremity cold to touch Assessment and Plan (1) Left lower lobe pneumonia Status: Acute Qualifiers: Pneumonia type: due to unspecified organism Qualified Code(s): J18.9 - Pneumonia, unspecified organism Category: Medical Code(s): J18.9 - Pneumonia, unspecified organism (2) SIRS (systemic inflammatory response syndrome) Status: Acute Category: Medical Code(s): R65.10 - Systemic inflammatory response syndrome (SIRS) of non-infectious origin without acute organ dysfunction (3) History of COVID-19 Status: Chronic Category: Medical Code(s): Z86.16 - Personal history of COVID-19 (4) Environmental allergies Status: Chronic Category: Medical Code(s): Z91.09 - Other allergy status, other than to drugs and biological substances (5) Coronary artery disease Status: Chronic Category: Medical Code(s): I25.10 - Atherosclerotic heart disease of [place] coronary artery without angina pec
[2021-03-10 13:44] LABS: Microscopic, Urine URINE MICROSCOPIC (MICROSCOPIC)
[2021-03-10 14:20] LABS: Appearance,Urine CLEAR (Clear); Bilirubin,Urine Negative (Negative); Blood, Urine 3+ (Negative); Color,Urine YELLOW (Yellow); Glucose,Urine (UA) Negative (Negative); Ketones,Urine Negative (Negative); Leukocyte Esterase,Urine Negative (Negative); Nitrate,Urine Negative (Negative); Protein,Urine 1+ (Negative); Urobilinogen,Urine 0.2 EU/dl (0.2)
[2021-03-10 14:21] LABS: Lactate Dehydrogenase 607 U/L (313-618)
[2021-03-10 14:25] LABS: C-Reactive Protein 202.7 mg/L (0-4)
[2021-03-10 14:33] LABS: RBC,Urine 20-50 #/hpf (0-3)
[2021-03-10 14:34] LABS: Bacteria,Urine Trace /lpf; Squamous Epithelial Cell,Urine Occasional #/hpf (0-5)
--- NOTE | 2021-03-10 18:48 | PC.NURSE ---
I assumed care of patient at approx 0800 after he was placed on ventilator.Family was notified and updated on POC. One hour post intubation documented in intervention. He has been turned q2hr and oral care provided. Heels have been floated. He has had approx 850 mls of urine out this shift. He has a scab to left hand and scattered bruising. NSR-ST on telemetry. VS as documented in intervention.
[2021-03-11] VITALS (32 sets, daily range): BP systolic 81–114; BP diastolic 44–68; PULSE 68–90; RESP 16–32; TEMP 36.5–36.8; O2SAT 94–100; BMI 23.6
--- NOTE | 2021-03-11 03:09 | PC.NURSE ---
2200- levophed gtt turned off; BP 103/60 at this time. 0300- SBP >90 and MAP >65 until this time; bp trending down: 84/47, 81/44, 78/44; levophed started at 2 mcg/min at this time.
--- NOTE | 2021-03-11 06:00 | XR_ITS ---
PROCEDURE INFORMATION: Exam: XR Chest Exam date and time: 03/11/2021 6:00 AM Age: 75 years old Clinical indication: Device placement; Ett placement (vent status); Patient HX: HX covid; Additional info: Intubated TECHNIQUE: Imaging protocol: XR of the chest. Views: 1 view. COMPARISON: CR XR CHEST PORTABLE 03/10/2021 8:20 AM FINDINGS: Tubes, catheters and devices: Endotracheal tube terminates approximately 2.7 cm above the zechariah. NG tube terminates in the region of the gastric antrum. Lungs: Redemonstrated bilateral interstitial and airspace opacities. Pleural spaces: Probable small left pleural effusion. No pneumothorax. Heart/Mediastinum: Changes of prior CABG. Bones/joints: Unremarkable. IMPRESSION: 1. Endotracheal tube terminates approximately 2.7 cm above the zechariah. 2. Redemonstrated multilobar pneumonia.
[2021-03-11 06:35] LABS: Alanine Aminotransferase 14 U/L (12-78); Albumin Level 2.6 g/dl (3.5-5.0); Albumin/Globulin Ratio 0.9 (1.1-1.8); Alkaline Phosphatase 66 U/L (38-126); Anion Gap 15.7 mEq/L (5-15); Aspartate Amino Transferase 35 U/L (17-59); Bilirubin,Total 0.2 mg/dl (0.2-1.3); Calcium 6.9 mg/dl (8.4-10.2); Carbon Dioxide 19 mmol/L (22.0-30.0); Chloride 115 mmol/L (98-107); Creatinine Clearance Estimated 17 mL/min (50-200); Estimated Glomerular Filt Rate 15 ml/min (>60); GFR (African American) 18 ML/MIN (>60); Globulin 2.8 g/dL (1.3-3.2); Glucose 122 mg/dl (74-100); Potassium 3.7 mmoL/L (3.5-5.1); Sodium 146 mmol/L (136-145); Total Protein,Serum 5.4 g/dl (6.3-8.2)
[2021-03-11 06:46] LABS: Blood Urea Nitrogen 80 mg/dl (9-20)
[2021-03-11 07:09] LABS: Lactate Arterial 1.3 mmol/L (0.4-2.0)
[2021-03-11 07:44] LABS: ABG Base Excess -8.7 mmol/L (-2.4-2.3); ABG Oxygen Saturation 84 % (90-100); ABG PCO2 35.8 mmhg (35.0-45.0); ABG PH 7.29 mmol/L (7.35-7.45); ABG TCO2 18.1 mmhg (23-27); Oxygen 60% %
[2021-03-11 07:45] LABS: Allen's Test Patient Unable; PEEP 10; Source Left Radial; Vent Rate 24
[2021-03-11 07:49] LABS: MANUAL DIFFERENTIAL MANUAL DIFFERENTIAL (MANUAL DIFF)
[2021-03-11 07:50] LABS: Basophils % 0.1 % (0.1-2.0); Eosinophils % 0.1 % (0.1-12.0); Hemoglobin 7.5 g/dL (14.1-18.0); Lymphocytes # 0.8 K/mm3 (0.7-4.5); Lymphocytes % 4.8 % (10-50); Mean Corpuscular HGB Conc 32.8 g/dL (31.8-35.4); Mean Corpuscular Hemoglobin 29.4 pg (27.0-31.2); Mean Corpuscular Volume 89.8 fl (80-94); Mean Platelet Volume 8.9 fl (7.4-10.4); Monocytes # 0.9 K/mm3 (0.1-1.0); Monocytes % 5.2 % (1.7-9.3); Neutrophils # 14.8 K/mm3 (1.8-7.8); Neutrophils % 89.9 % (37.0-80.0); Platelet Count 271 K/mm3 (142-424); Red Blood Count 2.57 M/mm3 (4.60-6.20); White Blood Count 16.4 K/mm3 (4.8-10.8)
[2021-03-11 08:18] LABS: Lymphocytes % 5 % (10-50); Monocytes % 2 % (2-9); Neutrophils % 93 % (42-76); Nucleated Red Blood Cells 1; Total Cells Counted 100
[2021-03-11 08:19] LABS: Anisocytosis 1+; Hypochromasia 2+; Macrocytosis 1+; Microcytosis 1+; Platelet Estimate Normal
--- NOTE | 2021-03-11 09:08 | HMH.ACPN2 ---
<Polyl Hopper - Last Filed: 03/11/21 09:08> Internal Medicine - PN: Subj *Date: 03/11/21 *Time: 09:08 Interval history: Patient remains mechanically ventilated. Exam Vital signs and Labs for Last 24 Hours: Temp Pulse Resp BP Pulse Ox 98 F 76 16 100/58 L 99 03/11/21 09:00 03/11/21 09:00 03/11/21 09:00 03/11/21 09:00 03/11/21 09:00 Laboratory Results - last 24 hr 03/10/21 12:30: C-Reactive Protein 202.7 H 03/10/21 12:30: Lactate Dehydrogenase 607 03/10/21 13:25: Urine Color Yellow, Urine Appearance Clear, Urine pH 6.0, Ur Specific [place] 1.020, Urine Protein 1+, Urine Glucose (UA) Negative, Urine Ketones Negative, Urine Blood 3+, Urine Nitrate Negative, Urine Bilirubin Negative, Urine Urobilinogen 0.2, Ur Leukocyte Esterase Negative, Urine RBC 20-50, Urine WBC 10-20, Ur Squamous Epith Cells Occasional, Urine Bacteria Trace 03/11/21 05:37: Sodium 146 H, Potassium 3.7, Chloride 115 H, Carbon Dioxide 19 L, Anion Gap 15.7 H, BUN 80 H D, Creatinine 4.00 H D, Estimated Creat Clear 17, Estimated GFR 15 L*, Est GFR ( Amer) 18 L* D, Glucose 122 H, Calcium 6.9 L, Total Bilirubin 0.2, AST 35 D, ALT 14 D, Alkaline Phosphatase 66, Total Protein 5.4 L, Albumin 2.6 L D, Globulin 2.8, Albumin/Globulin Ratio 0.9 L 03/11/21 05:37: WBC 16.4 H, RBC 2.57 L, Hgb 7.5 L, Hct 23.0 L, MCV 89.8, MCH 29.4, MCHC 32.8, RDW 19.0 H, Plt Count 271, MPV 8.9, Neut % (Auto) 89.9 H, Lymph % (Auto) 4.8 L, [place] % (Auto) 5.2, Eos % (Auto) 0.1, Baso % (Auto) 0.1, Neut # (Auto) 14.8 H, Lymph # (Auto) 0.8, [place] # (Auto) 0.9, Eos # (Auto) 0.0, Baso # (Auto) 0.0, Total Counted 100, Neutrophils % (Manual) 93 H, Lymphocytes % (Manual) 5 L, Monocytes % (Manual) 2, Nucleated RBCs 1, Platelet Estimate Normal, Hypochromasia 2+, Anisocytosis 1+, Microcytosis 1+, Macrocytosis 1+ 03/11/21 06:00: ABG Lactate 1.3 03/11/21 06:00: Specimen Source Left radial, O2 % 60%, ABG pH 7.29 L, ABG pCO2 35.8, ABG pO2 55.0 L, ABG HCO3 17.0 L, ABG Total CO2 18.1 L, ABG O2 Saturation 84 L*, ABG Base Excess -8.7 L, Reynold Test Patient unable, Vent Rate 24, Tidal Volume A/c 460, PEEP 10 I & O for Last 24 hours: Intake & Output 03/08/21 03/09/21 03/10/21 03/11/21 11:59 11:59 11:59 11:59 Intake Total 540 / 540 798 / 798 3000.25 / 3000.25 Output Total 1850 / 1850 800 / 800 1140 / 1140 Balance -1310 / -1310 -2 / -2 1860.25 / 1860.25 Weight 157 lb 2.01 oz 162 lb 9.6 oz 162 lb 9.596 oz 168 lb 8 oz Microbiology Reports for the Last 24 Hours: Microbiology 03/10/21 11:25 Bronchial Washings - Left Upper Lobe Gram Stain - Final 03/10/21 11:25 Bronchial Washings - Right Middle Lobe Gram Stain - Final 03/10/21 08:05 Sputum - Endotracheal Tube Aspirate Gram Stain - Final 03/10/21 11:25 Bronchial Lavage - Right Middle Lobe [place] Preparation - Final 03/10/21 11:25 Lung,Left Upper Lobe [place] Preparation - Final - Constitutional Comments: sedated - *Routine HEENT Exam Head: Present: normocephalic - *Routine Respiratory Exam Present: patient mechanically ventilated, decreased breath sounds - *Routine Cardiovascular Exam Present: RRR - *Routine Abdominal Exam Present: soft, normoactive bowel sounds. Absent: distended - *Routine Extremities Exam Present: pulses intact. Absent: edema, extremity cold to touch Assessment and Plan (1) Left lower lobe pneumonia Status: Acute Qualifiers: Pneumonia type: due to unspecified organism Qualified Code(s): J18.9 - Pneumonia, unspecified organism Category: Medical Code(s): J18.9 - Pneumonia, unspecified organism (2) SIRS (systemic inflammatory response syndrome) Status: Acute Category: Medical Code(s): R65.10 - Systemic inflammatory response syndrome (SIRS) of non-infectious origin without acute organ dysfunction (3) History of COVID-19 Status: Chronic Category: Medical Code(s): Z86.16 - Personal history of COVID-19 (4) Environmental allergies Status: Chronic Category: Medical
--- NOTE | 2021-03-11 09:30 | PC.NURSE ---
BP 102/53. Levo gtt turned OFF @ this time.
--- NOTE | 2021-03-11 10:00 | PC.NURSE ---
BP 83/44. Levo gtt turned back on @ 2mcg/min
--- NOTE | 2021-03-11 10:30 | PC.NURSE ---
BP 86/47. Levo gtt increased to 4mcg/min. Pt coughing and bucking the vent. Propofol gtt increased to 75mcg/kg/min.
--- NOTE | 2021-03-11 13:24 | HMH.PULMPN ---
Internal Medicine - PN: Subj *Date: 03/11/21 *Time: 13:24 Interval history: No acute respiratory events overnight. Exam - Constitutional Constitutional:: Present: no acute distress, comfortable - HENMT Exam HENMT: Present: normocephalic - Eye Exam Eyes:: Present: normal appearance both eyes and related structures - Neck Exam Neck:: Present: normal visual inspection - Respiratory Exam Respiratory:: Present: respiratory distress, rhonchi - Cardiovascular Exam Cardiac:: Present: S1, S2 - GI Exam GI:: Present: soft, no tenderness - Skin Exam Skin: Present: warm - Neurological Exam Neurological: Absent: alert, awake, normal cognition Intubated and sedated - Extremities Exam Extremities: Present: no cyanosis, no clubbing, no edema Assessment and Plan (1) Left lower lobe pneumonia Status: Acute Qualifiers: Pneumonia type: due to unspecified organism Qualified Code(s): J18.9 - Pneumonia, unspecified organism Category: Medical Code(s): J18.9 - Pneumonia, unspecified organism (2) SIRS (systemic inflammatory response syndrome) Status: Acute Category: Medical Code(s): R65.10 - Systemic inflammatory response syndrome (SIRS) of non-infectious origin without acute organ dysfunction (3) History of COVID-19 Status: Chronic Category: Medical Code(s): Z86.16 - Personal history of COVID-19 (4) Environmental allergies Status: Chronic Category: Medical Code(s): Z91.09 - Other allergy status, other than to drugs and biological substances (5) Coronary artery disease Status: Chronic Category: Medical Code(s): I25.10 - Atherosclerotic heart disease of [place] coronary artery without angina pectoris (6) Hyperlipemia Status: Chronic Category: Medical Code(s): E78.5 - Hyperlipidemia, unspecified (7) Hypertension Status: Chronic Category: Medical Code(s): I10 - Essential (primary) hypertension (8) Rheumatoid arthritis Status: Chronic Category: Medical Code(s): M06.9 - Rheumatoid arthritis, unspecified - Assessment and plan all Dx Assessment and Plan for all problems:: #Acute hypoxic respiratory failure: #Bilateral pneumonia: #Septic shock: 75-year-old no prior respiratory complaints as per chart review, not any inhalers, recent diagnosis of COVID-19 pneumonia, history of rheumatoid arthritis on methotrexate 2.5 mg weekly presented to hospital with worsening respiratory status dizziness febrile episodes and leukocytosis, initiated on sepsis protocol, needing 2 L nasal oxygen supplementation initially progressively worsening ventilator intubation and mechanical ventilatory support and pulmonary was called for further management. History of COVID-19 pneumonia on 12/20, growing gram-negative rods at that point. D-dimer significant elevated at 6.2 along with significant leukocytosis with left shift. Febrile. ABG on admission showed significant acidosis with a pH of 7.14 along with evidence of Predominant metabolic and mild respiratory acidosis and renal dysfunction with a creatinine of 3.1. Chest x-ray done this morning showed bilateral diffuse interstitial changes, significantly worsened prominent in the right side from his most recent chest x-ray from [address] angio from July 2019 showed bilateral pulmonary nodules with minimal subpleural interstitial changes, no follow-up CT imaging available for review at [facility]. Interval update: Bronchoalveolar lavage concerning for [facility] patient's UA positive for RBC. Respiratory status improved from yesterday this morning on 50% FiO2 with ABG showing PaO2 of 55. Hypercarbia improved. Patient hemodynamics improved and is currently off pressors. Plan: -Continue sedation with propofol and fentanyl. CT head within normal limits. -Continue mechanical ventilatory support, currently on volume control for 60 of tidal volume, rate of 24 and FiO2 of 60. Ventilator settings improved x-ray showed bilateral worsening infiltrates, concernin
[2021-03-12] VITALS (28 sets, daily range): BP systolic 99–133; BP diastolic 53–75; PULSE 70–91; RESP 27–34; TEMP 35.8–37; O2SAT 91–100; BMI 23.4
--- NOTE | 2021-03-12 05:39 | PC.NURSE ---
no acute changes overnight, pt remains on FiO2 50%, TV 460, rate 24, peep 10, AC mode, pt is sedated with Propofol at 60, fentanyl at 75, fentanyl increased at 2145, propofol increased at 2335 due to asynchronous breathing, frequent alarming, and a RR of 32. UOP has been very poor, average of 20-30 an hour, urine is pale yellow and clear. Levo drip turned off at 0430 with a bp of 114/66, MAP has sustained greater than 65. OG remains at 65 at lip and clamped, oral care provided Q2, pt turned Q2, and heels have been floated
--- NOTE | 2021-03-12 06:00 | XR_ITS ---
PROCEDURE INFORMATION: Exam: XR Chest Exam date and time: 03/12/2021 6:00 AM Age: 75 years old Clinical indication: Device placement; Ett placement (vent status); Patient HX: HX covid; Additional info: Intubated TECHNIQUE: Imaging protocol: XR of the chest. Views: 1 view. COMPARISON: CR XR CHEST PORTABLE 03/11/2021 5:16 AM FINDINGS: Tubes, catheters and devices: There is an endotracheal tube with its tip 3.7 cm above the zechariah. A nasogastric tube is noted with its tip below the diaphragm. Lungs: Extensive amorphous interstitial infiltration noted within both lung [place]. Marginal improvement in aeration within both lung gale[place] when compared with prior examination. No evidence of new infiltrate. Pleural spaces: Blunting of the left lateral costophrenic angle. This could be on the basis of basilar infiltration which effaces the costophrenic angle. Similar findings noted on prior examination. Heart/Mediastinum: The heart is not overtly enlarged. Again, changes of median sternotomy and cardiac surgery. Bones/joints: Degenerative changes of the thoracic spine. IMPRESSION: Endotracheal tube and nasogastric tube in satisfactory position. Again, there are extensive interstitial infiltrates within both lung [place]ale[place].
[2021-03-12 07:07] LABS: ABG Base Excess -13.5 mmol/L (-2.4-2.3); ABG HCO3 14.2 mmhg (22.0-26.0); ABG Oxygen Saturation 93 % (90-100); ABG PCO2 35.4 mmhg (35.0-45.0); ABG PH 7.22 mmol/L (7.35-7.45); ABG PO2 78.2 mmhg (80-100); ABG TCO2 15.3 mmhg (23-27)
[2021-03-12 07:08] LABS: PEEP 10; Source Right Radial; Tidal Volume 460; Vent Rate 24
[2021-03-12 07:09] LABS: Oxygen 50 %
[2021-03-12 07:19] LABS: Basophils # 0.1 K/mm3 (0-0.2); Basophils % 0.5 % (0.1-2.0); Hematocrit 23.1 % (42.0-52.0); Hemoglobin 7.5 g/dL (14.1-18.0); Lymphocytes # 0.4 K/mm3 (0.7-4.5); Lymphocytes % 3.5 % (10-50); Mean Corpuscular HGB Conc 32.6 g/dL (31.8-35.4); Mean Corpuscular Hemoglobin 29.8 pg (27.0-31.2); Mean Corpuscular Volume 91.2 fl (80-94); Mean Platelet Volume 8.8 fl (7.4-10.4); Monocytes # 0.4 K/mm3 (0.1-1.0); Monocytes % 3.2 % (1.7-9.3); Neutrophils # 11.1 K/mm3 (1.8-7.8); Neutrophils % 92.8 % (37.0-80.0); Platelet Count 284 K/mm3 (142-424); Red Blood Count 2.54 M/mm3 (4.60-6.20); Red Cell Distribution Width 18.9 % (11.5-17.5)
[2021-03-12 07:41] LABS: Alanine Aminotransferase 12 U/L (12-78); Albumin Level 2.7 g/dl (3.5-5.0); Albumin/Globulin Ratio 0.9 (1.1-1.8); Alkaline Phosphatase 78 U/L (38-126); Anion Gap 22.4 mEq/L (5-15); Aspartate Amino Transferase 31 U/L (17-59); Bilirubin,Total 0.2 mg/dl (0.2-1.3); Calcium 6.9 mg/dl (8.4-10.2); Carbon Dioxide 15 mmol/L (22.0-30.0); Chloride 113 mmol/L (98-107); Creatinine Clearance Estimated 14 mL/min (50-200); Estimated Glomerular Filt Rate 12 ml/min (>60); GFR (African American) 15 ML/MIN (>60); Globulin 3.1 g/dL (1.3-3.2); Glucose 155 mg/dl (74-100); Potassium 4.4 mmoL/L (3.5-5.1); Sodium 146 mmol/L (136-145); Total Protein,Serum 5.8 g/dl (6.3-8.2)
[2021-03-12 07:47] LABS: Blood Urea Nitrogen 102 mg/dl (9-20)
--- NOTE | 2021-03-12 07:48 | PC.NURSE ---
received call from lab (May) reporting BUN 102 and Cr 4.70. Name and verified. Dr. Solano rounding and has been notified.
[2021-03-12 07:53] LABS: MANUAL DIFFERENTIAL MANUAL DIFFERENTIAL (MANUAL DIFF)
[2021-03-12 08:53] LABS: Triglycerides 995 mg/dl (30-150)
--- NOTE | 2021-03-12 09:03 | HMH.ACPN2 ---
<Herminia Araujo - Last Filed: 03/12/21 09:03> Internal Medicine - PN: Subj *Date: 03/12/21 *Time: 09:03 Interval history: No new respiratory events. Blood pressure is still low. Patient son states he has had some urine output. Exam Vital signs and Labs for Last 24 Hours: Temp Pulse Resp BP Pulse Ox 98.5 F 79 27 H 105/62 L 97 03/12/21 06:00 03/12/21 06:45 03/12/21 06:45 03/12/21 06:45 03/12/21 06:45 Laboratory Results - last 24 hr 03/12/21 06:00: ABG Lactate 1.0 03/12/21 06:00: Specimen Source Right radial, O2 % 50, ABG pH 7.22 L*, ABG pCO2 35.4, ABG pO2 78.2 L, ABG HCO3 14.2 L, ABG Total CO2 15.3 L, ABG O2 Saturation 93, ABG Base Excess -13.5 L, Reynold Test N/a, Vent Rate 24, Tidal Volume 460, PEEP 10 03/12/21 06:17: WBC 12.0 H D, RBC 2.54 L, Hgb 7.5 L, Hct 23.1 L, MCV 91.2, MCH 29.8, MCHC 32.6, RDW 18.9 H, Plt Count 284, MPV 8.8, Neut % (Auto) 92.8 H, Lymph % (Auto) 3.5 L, [place] % (Auto) 3.2, Eos % (Auto) 0.0 L, Baso % (Auto) 0.5, Neut # (Auto) 11.1 H, Lymph # (Auto) 0.4 L, [place] # (Auto) 0.4, Eos # (Auto) 0.0, Baso # (Auto) 0.1 03/12/21 06:17: Sodium 146 H, Potassium 4.4, Chloride 113 H, Carbon Dioxide 15 L, Anion Gap 22.4 H, BUN 102 H* D, Creatinine 4.70 H, Estimated Creat Clear 14, Estimated GFR 12 L*, Est GFR ( Amer) 15 L*, Glucose 155 H, Calcium 6.9 L, Total Bilirubin 0.2, AST 31, ALT 12, Alkaline Phosphatase 78, Total Protein 5.8 L, Albumin 2.7 L, Globulin 3.1, Albumin/Globulin Ratio 0.9 L 03/12/21 06:17: Triglycerides 995 H I & O for Last 24 hours: Intake & Output 03/09/21 03/10/21 03/11/21 03/12/21 11:59 11:59 11:59 11:59 Intake Total 540 / 540 798 / 798 3090.937 / 3090.937 2243.542 / 2243.542 Output Total 1850 / 1850 800 / 800 1167 / 1187 506 / 506 Balance -1310 / -1310 -2 / -2 1923.937 / 5802.670 2220.542 / 1737.542 Weight 162 lb 9.6 oz 162 lb 9.596 oz 168 lb 8 oz 167 lb 9 oz Microbiology Reports for the Last 24 Hours: Microbiology 03/10/21 11:25 Bronchial Washings - Right Middle Lobe Acid Fast Bacilli Smear - Final 03/10/21 11:25 Bronchial Washings - Left Upper Lobe Acid Fast Bacilli Smear - Final 03/10/21 13:25 Urine,Clean Catch Urine Culture - Preliminary NO GROWTH AFTER 24 HOURS - Constitutional no acute distress - *Routine Respiratory Exam Present: patient mechanically ventilated - *Routine Cardiovascular Exam Present: RRR - *Routine Abdominal Exam Present: soft, normoactive bowel sounds. Absent: tenderness - *Routine Extremities Exam Absent: cyanosis, clubbing, edema - *Routine Skin Exam Present: warm. Absent: rash - *Routine Neurological Exam sedated Assessment and Plan (1) Left lower lobe pneumonia Status: Acute Qualifiers: Pneumonia type: due to unspecified organism Qualified Code(s): J18.9 - Pneumonia, unspecified organism Category: Medical Code(s): J18.9 - Pneumonia, unspecified organism (2) SIRS (systemic inflammatory response syndrome) Status: Acute Category: Medical Code(s): R65.10 - Systemic inflammatory response syndrome (SIRS) of non-infectious origin without acute organ dysfunction (3) History of COVID-19 Status: Chronic Category: Medical Code(s): Z86.16 - Personal history of COVID-19 (4) Environmental allergies Status: Chronic Category: Medical Code(s): Z91.09 - Other allergy status, other than to drugs and biological substances (5) Coronary artery disease Status: Chronic Category: Medical Code(s): I25.10 - Atherosclerotic heart disease of [place] coronary artery without angina pectoris (6) Hyperlipemia Status: Chronic Category: Medical Code(s): E78.5 - Hyperlipidemia, unspecified (7) Hypertension Status: Chronic Category: Medical Code(s): I10 - Essential (primary) hypertension (8) Rheumatoid arthritis Status: Chronic Category: Medical Code(s): M06.9 - Rheumatoid arthritis, unspecified - Assessment and plan all Dx Assessment a
--- NOTE | 2021-03-12 09:52 | DIET.NUTRFU ---
Addendum entered by Brie Armando, JACI, LD 03/13/21 15:21: TFs initiated and tolerating well at 20ml/h, he did have one GRV of 300 at time of initiation, now <100. He failed SBT this am and will remain intubated. He continues to receive IVF and propofol. Renal function continues to decline. No changes to regimen at this time, pt to be advanced to goal rate of 30ml/h as tolerated. Original Note: Pt intubated and sedated day 3 NPO, nutrition consult received to initiate enteral nutrition. Pt with very poor renal function and continuing to decline with Creatinine 4.7, BUN 102, GFR 12 this am. Nepro (renal formula) most appropriate formula choice. Pt also with elevated triglycerides 995, recommend rechecking Lipase. Pt receiving propofol providing significant additional kcal. He is receiving IVF. MAP>60. Na slightly elevated 146, K wnl. Recommend initiating continuous tube feeding regimen of Nepro 1.8 at 20ml/h and advancing once by 10ml/h q 8h as tolerated to goal rate of 30ml/h. Pt meeting fluid needs through IVF, recommend minimal water flushes of 30-60ml q 4h. If IVF dc'd recommend water flushes of 200ml q 4h to meet additional fluid needs not provided by formula. This regimen provides 1242kcal(~1800 with propofol), 56g protein, 111g cho, 66g fat, and 502ml free water(1700ml total fluids with flushes) Will monitor pt tolerance, labs, meds, fluids to alter regimen as indicated.
[2021-03-12 10:20] LABS: Anisocytosis 1+; Eosinophils % 2 % (0-3); Lymphocytes % 4 % (10-50); Macrocytosis 1+; Monocytes % 2 % (2-9); Neutrophils % 89 % (42-76); Total Cells Counted 100
[2021-03-12 10:22] LABS: Platelet Estimate Normal
--- NOTE | 2021-03-12 11:11 | PC.NURSE ---
Nepro started @ 20mL/hr. Goal rate 30mL/hr
--- NOTE | 2021-03-12 13:12 | HMH.PULMPN ---
Internal Medicine - PN: Subj *Date: 03/12/21 *Time: 13:12 Interval history: No acute respiratory events overnight. Exam - Constitutional Constitutional:: Absent: no acute distress, comfortable - HENMT Exam HENMT: Present: normocephalic, atraumatic - Eye Exam Eyes:: Present: normal appearance both eyes and related structures - Neck Exam Neck:: Present: normal visual inspection - Respiratory Exam Respiratory:: Present: respiratory distress, rales, rhonchi. Absent: wheezing - Cardiovascular Exam Cardiac:: Present: S1, S2 - GI Exam GI:: Present: soft, no tenderness - Skin Exam Skin: Present: warm - Neurological Exam Neurological: Absent: alert, awake, normal cognition - Extremities Exam Extremities: Present: no cyanosis, no clubbing, no edema Assessment and Plan (1) Left lower lobe pneumonia Status: Acute Qualifiers: Pneumonia type: due to unspecified organism Qualified Code(s): J18.9 - Pneumonia, unspecified organism Category: Medical Code(s): J18.9 - Pneumonia, unspecified organism (2) SIRS (systemic inflammatory response syndrome) Status: Acute Category: Medical Code(s): R65.10 - Systemic inflammatory response syndrome (SIRS) of non-infectious origin without acute organ dysfunction (3) History of COVID-19 Status: Chronic Category: Medical Code(s): Z86.16 - Personal history of COVID-19 (4) Environmental allergies Status: Chronic Category: Medical Code(s): Z91.09 - Other allergy status, other than to drugs and biological substances (5) Coronary artery disease Status: Chronic Category: Medical Code(s): I25.10 - Atherosclerotic heart disease of [place] coronary artery without angina pectoris (6) Hyperlipemia Status: Chronic Category: Medical Code(s): E78.5 - Hyperlipidemia, unspecified (7) Hypertension Status: Chronic Category: Medical Code(s): I10 - Essential (primary) hypertension (8) Rheumatoid arthritis Status: Chronic Category: Medical Code(s): M06.9 - Rheumatoid arthritis, unspecified - Assessment and plan all Dx Assessment and Plan for all problems:: #Acute hypoxic respiratory failure: #Bilateral pneumonia: #Septic shock: 75-year-old no prior respiratory complaints as per chart review, not any inhalers, recent diagnosis of COVID-19 pneumonia, history of rheumatoid arthritis on methotrexate 2.5 mg weekly presented to hospital with worsening respiratory status dizziness febrile episodes and leukocytosis, initiated on sepsis protocol, needing 2 L nasal oxygen supplementation initially progressively worsening ventilator intubation and mechanical ventilatory support and pulmonary was called for further management. History of COVID-19 pneumonia on 12/20, growing gram-negative rods at that point. D-dimer significant elevated at 6.2 along with significant leukocytosis with left shift. Febrile. ABG on admission showed significant acidosis with a pH of 7.14 along with evidence of Predominant metabolic and mild respiratory acidosis and renal dysfunction with a creatinine of 3.1. Chest x-ray done this morning showed bilateral diffuse interstitial changes, significantly worsened prominent in the right side from his most recent chest x-ray from [address] angio from July 2019 showed bilateral pulmonary nodules with minimal subpleural interstitial changes, no follow-up CT imaging available for review at [facility]. . Plan: -Continue sedation with Versed and fentanyl. Triglycerides elevated at 995, will change his propofol to Versed. CT head within normal limits. -Continue mechanical ventilatory support, respiratory status continued to improve along with significant improvement in his chest x-ray. Currently on volume control for 460 of tidal volume, rate of 24 and FiO2 of 50. Sputum [place] and bacterial staining negative. Blood and urine cultures no growth so far. Continue to receive vancomycin and cefepime. Received a gram of steroids yesterday, w
[2021-03-12 20:32] LABS: Vancomycin,Trough 21.3 ug/mL (5.0-10.0)
--- NOTE | 2021-03-12 20:53 | PC.NURSE ---
paged nightwatch about vanc trough, ordered to retime 2000 vanc dose until midnight.
[2021-03-13] VITALS (26 sets, daily range): BP systolic 111–153; BP diastolic 54–94; PULSE 73–159; RESP 18–32; TEMP 36.4–37; O2SAT 92–100; BMI 24.5
--- NOTE | 2021-03-13 06:00 | XR_ITS ---
PROCEDURE INFORMATION: Exam: XR Chest Exam date and time: 03/13/2021 6:00 AM Age: 75 years old Clinical indication: Device placement; Ett placement (vent status); Additional info: Intubated TECHNIQUE: Imaging protocol: XR of the chest. Views: 1 view. COMPARISON: CR XR CHEST PORTABLE 03/12/2021 2:48 AM FINDINGS: Tubes, catheters and devices: The endotracheal tube is difficult to visualize but appears to terminate less than 1 cm above the zechariah. NG tube passes into the stomach. Lungs: Mild interval improvement in interstitial and airspace opacities bilaterally. Pleural spaces: No substantial pleural effusion. No pneumothorax. Heart/Mediastinum: Changes of prior CABG. Bones/joints: Unremarkable. IMPRESSION: 1. The endotracheal tube is difficult to visualize but appears to terminate less than 1 cm above the zechariah. Recommend retraction by 3-4 cm. 2. Mild interval improvement and interstitial and airspace opacities bilaterally.
--- NOTE | 2021-03-13 06:20 | PC.NURSE ---
sedation now turned off for SBT this morning per Annangi.
[2021-03-13 07:20] LABS: Basophils % 0.2 % (0.1-2.0); Eosinophils % 0.1 % (0.1-12.0); Hematocrit 25.1 % (42.0-52.0); Hemoglobin 7.8 g/dL (14.1-18.0); Lymphocytes # 0.6 K/mm3 (0.7-4.5); Lymphocytes % 3.4 % (10-50); Mean Corpuscular HGB Conc 31.2 g/dL (31.8-35.4); Mean Corpuscular Hemoglobin 29.1 pg (27.0-31.2); Mean Corpuscular Volume 93.1 fl (80-94); Mean Platelet Volume 9.2 fl (7.4-10.4); Monocytes # 0.8 K/mm3 (0.1-1.0); Monocytes % 4.5 % (1.7-9.3); Neutrophils # 15.7 K/mm3 (1.8-7.8); Neutrophils % 91.8 % (37.0-80.0); Platelet Count 396 K/mm3 (142-424); Red Cell Distribution Width 19.1 % (11.5-17.5); White Blood Count 17.1 K/mm3 (4.8-10.8)
[2021-03-13 07:26] LABS: MANUAL DIFFERENTIAL MANUAL DIFFERENTIAL (MANUAL DIFF)
[2021-03-13 07:44] LABS: Alanine Aminotransferase 14 U/L (12-78); Albumin Level 2.8 g/dl (3.5-5.0); Albumin/Globulin Ratio 0.9 (1.1-1.8); Alkaline Phosphatase 112 U/L (38-126); Anion Gap 23.6 mEq/L (5-15); Aspartate Amino Transferase 40 U/L (17-59); Bilirubin,Total 0.4 mg/dl (0.2-1.3); Carbon Dioxide 14 mmol/L (22.0-30.0); Chloride 113 mmol/L (98-107); Creatinine Clearance Estimated 12 mL/min (50-200); Estimated Glomerular Filt Rate 9 ml/min (>60); GFR (African American) 11 ML/MIN (>60); Globulin 3.2 g/dL (1.3-3.2); Glucose 157 mg/dl (74-100); Potassium 4.6 mmoL/L (3.5-5.1); Sodium 146 mmol/L (136-145)
[2021-03-13 08:10] LABS: Blood Urea Nitrogen 125 mg/dl (9-20)
--- NOTE | 2021-03-13 08:30 | PC.NURSE ---
RESP CARE NOTE: Sedation holiday began approximately 0600 per RN note. SBT trial of 38ffP1B pressure support and 8 cmH2O PEEP, and FIO2 of 55% at 0820. By 0830 pt distressed enough to terminate SBT trial, HR 122 bpm, BP 181/102 mmHg, Respiratory rate 25bpm, patient profusely diaphoretic, and gasping respiratory pattern. Pt placed back on AC mode, rate 24, FIO2 55%, and PEEP of 8cmH2O, and Fentanyl drip resumed at half dose per Dr Jang telephone order. 0830 03/13/2021
[2021-03-13 08:33] LABS: Lymphocytes % 5 % (10-50); Monocytes % 6 % (2-9); Neutrophils % 89 % (42-76); Total Cells Counted 100
--- NOTE | 2021-03-13 08:34 | HMH.PHACONS ---
- Pharmacy Consult Date: 03/13/21 Time: 08:34 Referring provider: MINOO Reason for Consult:: VANCOMYCIN DOSING ADJUSTMENT Allergies and ADEs:: Allergies Allergy/AdvReac Type Severity Reaction Status Date / Time aspirin [ASPIRIN] AdvReac Mild Verified 08/12/18 11:59 Home Medications:: Home Medications Medication Instructions Recorded Confirmed Type Albuterol Sulfate [Ventolin HFA 2 puffs IH Q6HP PRN #1 inh 07/28/18 03/08/21 Rx Inhaler] Atorvastatin Calcium [Lipitor 10mg 10 mg PO HS 07/28/18 03/08/21 History Tab] Fluticasone Propionate 1 spray NS BID 07/28/18 03/08/21 History Levobunolol HCl [Betagan 0.5% 10mL 1 drop EYE-BOTH BID 07/28/18 03/07/21 History opth nicolette] Metoprolol Tartrate 50 mg PO BID 07/28/18 03/07/21 History Sertraline HCl [Zoloft 50mg tablet] 50 mg PO DAILY 07/28/18 03/07/21 History metHOTREXate sodium [metHOTREXate 17.5 mg PO WEEKLY 07/28/18 03/07/21 History 2.5mg Tablet] Aspirin [Aspir-Low] 81 mg PO DAILY 08/12/18 03/08/21 History Esomeprazole Magnesium 40 mg PO DAILY 08/12/18 03/08/21 History Folic Acid [Folic Acid 1mg tablet] 1 mg PO DAILY 08/12/18 03/07/21 History Montelukast Sodium [Montelukast 10 mg PO HS 08/12/18 03/07/21 History 10mg Tab] predniSONE [Prednisone 5mg 5 mg PO DAILY 08/12/18 03/07/21 History Tab] Loratadine/Pseudoephedrine 1 each PO DAILY 08/11/19 03/07/21 History [Claritin-D 24 Hour Tablet] Celecoxib [Celebrex 200mg cap] 200 mg PO DAILY 12/20/20 03/08/21 History Height: 1.8 m Weight: 79.379 kg Laboratory Results:: Laboratory Results - last 24 hr 03/10/21 12:30: Beta-(1,3)-D-Glucan Comment 03/12/21 06:17: Total Counted 100, Neutrophils % (Manual) 89 H, Band Neutrophils % 3.0, Lymphocytes % (Manual) 4 L, Monocytes % (Manual) 2, Eosinophils % (Manual) 2, Platelet Estimate Normal, Anisocytosis 1+, Macrocytosis 1+ 03/12/21 06:17: Triglycerides 995 H 03/12/21 19:24: Vancomycin Trough 21.3 H 03/13/21 05:27: WBC 17.1 H D, RBC 2.70 L, Hgb 7.8 L, Hct 25.1 L, MCV 93.1, MCH 29.1, MCHC 31.2 L, RDW 19.1 H, Plt Count 396 D, MPV 9.2, Neut % (Auto) 91.8 H, Lymph % (Auto) 3.4 L, [place] % (Auto) 4.5, Eos % (Auto) 0.1, Baso % (Auto) 0.2, Neut # (Auto) 15.7 H, Lymph # (Auto) 0.6 L, [place] # (Auto) 0.8, Eos # (Auto) 0.0, Baso # (Auto) 0.0 03/13/21 05:27: Sodium 146 H, Potassium 4.6, Chloride 113 H, Carbon Dioxide 14 L, Anion Gap 23.6 H, BUN 125 H*, Creatinine 5.90 H D, Estimated Creat Clear 12, Estimated GFR 9 L*, Est GFR ( Amer) 11 L* D, Glucose 157 H, Calcium 7.0 L, Total Bilirubin 0.4, AST 40 D, ALT 14, Alkaline Phosphatase 112, Total Protein 6.0 L, Albumin 2.8 L, Globulin 3.2, Albumin/Globulin Ratio 0.9 L Medical History: Reports:: Chronic Obstructive Pulmonary Disease (COPD), Coronary Artery Disease, Depression, Gastroesophageal Reflux Disease(GERD), Hyperlipidemia, Hypertension, Myocardial Infarction Denies:: Diabetes Mellitus Type 1, Diabetes Mellitus Type 2 Assessment and Plan (1) Left lower lobe pneumonia Status: Acute Qualifiers: Pneumonia type: due to unspecified organism Qualified Code(s): J18.9 - Pneumonia, unspecified organism Category: Medical Code(s): J18.9 - Pneumonia, unspecified organism (2) SIRS (systemic inflammatory response syndrome) Status: Acute Category: Medical Code(s): R65.10 - Systemic inflammatory response syndrome (SIRS) of non-infectious origin without acute organ dysfunction (3) History of COVID-19 Status: Chronic Category: Medical Code(s): Z86.16 - Personal history of COVID-19 (4) Environmental allergies Status: Chronic Category: Medical Code(s): Z91.09 - Other allergy status, other than to drugs and biological substances (5) Coronary artery disease Status: Chronic Category: Medical Code(s): I25.10 - Atherosclerotic heart disease of [place] coronary artery without angina pectoris (6) Hyperlipemia Status: Chronic Category: Medical Code(s): E78.5 - Hyperlipidemia, unspecif
[2021-03-13 08:36] LABS: Anisocytosis 1+; Platelet Estimate Normal
--- NOTE | 2021-03-13 09:05 | HMH.ACPN2 ---
<Polly Hopper - Last Filed: 03/13/21 09:05> Internal Medicine - PN: Subj *Date: 03/13/21 *Time: 09:05 Interval history: SBT underway. Family at bedside. Exam Vital signs and Labs for Last 24 Hours: Temp Pulse Resp BP Pulse Ox 98.6 F 89 24 137/81 99 03/13/21 06:00 03/13/21 08:00 03/13/21 08:00 03/13/21 08:00 03/13/21 08:00 Laboratory Results - last 24 hr 03/10/21 12:30: Beta-(1,3)-D-Glucan Comment 03/12/21 06:17: Total Counted 100, Neutrophils % (Manual) 89 H, Band Neutrophils % 3.0, Lymphocytes % (Manual) 4 L, Monocytes % (Manual) 2, Eosinophils % (Manual) 2, Platelet Estimate Normal, Anisocytosis 1+, Macrocytosis 1+ 03/12/21 19:24: Vancomycin Trough 21.3 H 03/13/21 05:27: WBC 17.1 H D, RBC 2.70 L, Hgb 7.8 L, Hct 25.1 L, MCV 93.1, MCH 29.1, MCHC 31.2 L, RDW 19.1 H, Plt Count 396 D, MPV 9.2, Neut % (Auto) 91.8 H, Lymph % (Auto) 3.4 L, [place] % (Auto) 4.5, Eos % (Auto) 0.1, Baso % (Auto) 0.2, Neut # (Auto) 15.7 H, Lymph # (Auto) 0.6 L, [place] # (Auto) 0.8, Eos # (Auto) 0.0, Baso # (Auto) 0.0, Total Counted 100, Neutrophils % (Manual) 89 H, Lymphocytes % (Manual) 5 L, Monocytes % (Manual) 6, Platelet Estimate Normal, Anisocytosis 1+ 03/13/21 05:27: Sodium 146 H, Potassium 4.6, Chloride 113 H, Carbon Dioxide 14 L, Anion Gap 23.6 H, BUN 125 H*, Creatinine 5.90 H D, Estimated Creat Clear 12, Estimated GFR 9 L*, Est GFR ( Amer) 11 L* D, Glucose 157 H, Calcium 7.0 L, Total Bilirubin 0.4, AST 40 D, ALT 14, Alkaline Phosphatase 112, Total Protein 6.0 L, Albumin 2.8 L, Globulin 3.2, Albumin/Globulin Ratio 0.9 L I & O for Last 24 hours: Intake & Output 03/10/21 03/11/21 03/12/21 03/13/21 11:59 11:59 11:59 11:59 Intake Total 798 / 798 3090.937 / 3090.937 2536.584 / 2536.584 3853.25 / 3853.25 Output Total 800 / 800 1167 / 1187 601 / 676 1250 / 1250 Balance -2 / -2 1923.937 / 9715.179 8837.584 / 1447.553 9571.25 / 2603.25 Weight 162 lb 9.596 oz 168 lb 8 oz 167 lb 9 oz 175 lb Microbiology Reports for the Last 24 Hours: Microbiology 03/07/21 19:32 Blood Blood Culture - Final NO GROWTH AFTER 5 DAYS 03/07/21 19:32 Blood Blood Culture - Final NO GROWTH AFTER 5 DAYS 03/10/21 13:25 Urine,Clean Catch Urine Culture - Final NO GROWTH AFTER 48 HOURS - Constitutional mild distress - *Routine Respiratory Exam Present: patient mechanically ventilated, rhonchi Comments: improved air movement today - *Routine Cardiovascular Exam Present: RRR - *Routine Abdominal Exam Present: soft, normoactive bowel sounds. Absent: distended, obese - *Routine Extremities Exam Present: pulses intact. Absent: edema, extremity cold to touch - *Routine Neurological Exam Absent: alert, oriented X3 sedated Assessment and Plan (1) Left lower lobe pneumonia Status: Acute Qualifiers: Pneumonia type: due to unspecified organism Qualified Code(s): J18.9 - Pneumonia, unspecified organism Category: Medical Code(s): J18.9 - Pneumonia, unspecified organism (2) SIRS (systemic inflammatory response syndrome) Status: Acute Category: Medical Code(s): R65.10 - Systemic inflammatory response syndrome (SIRS) of non-infectious origin without acute organ dysfunction (3) History of COVID-19 Status: Chronic Category: Medical Code(s): Z86.16 - Personal history of COVID-19 (4) Environmental allergies Status: Chronic Category: Medical Code(s): Z91.09 - Other allergy status, other than to drugs and biological substances (5) Coronary artery disease Status: Chronic Category: Medical Code(s): I25.10 - Atherosclerotic heart disease of [place] coronary artery without angina pectoris (6) Hyperlipemia Status: Chronic Category: Medical Code(s): E78.5 - Hyperlipidemia, unspecified (7) Hypertension Status: Chronic Category: Medical Code(s): I10 - Essential (primary) hypertension (8) Rheumatoid art
--- NOTE | 2021-03-13 09:47 | HMH.ACPN ---
Internal Medicine - PN: Subj *Date: 03/13/21 *Time: 09:47 Exam Vital signs and Labs for Last 24 Hours: Temp Pulse Resp BP Pulse Ox 98.6 F 73 28 H 111/55 L 98 03/13/21 06:00 03/13/21 09:00 03/13/21 09:00 03/13/21 09:00 03/13/21 09:00 Laboratory Results - last 24 hr 03/10/21 12:30: Beta-(1,3)-D-Glucan Comment 03/12/21 06:17: Total Counted 100, Neutrophils % (Manual) 89 H, Band Neutrophils % 3.0, Lymphocytes % (Manual) 4 L, Monocytes % (Manual) 2, Eosinophils % (Manual) 2, Platelet Estimate Normal, Anisocytosis 1+, Macrocytosis 1+ 03/12/21 19:24: Vancomycin Trough 21.3 H 03/13/21 05:27: WBC 17.1 H D, RBC 2.70 L, Hgb 7.8 L, Hct 25.1 L, MCV 93.1, MCH 29.1, MCHC 31.2 L, RDW 19.1 H, Plt Count 396 D, MPV 9.2, Neut % (Auto) 91.8 H, Lymph % (Auto) 3.4 L, [place] % (Auto) 4.5, Eos % (Auto) 0.1, Baso % (Auto) 0.2, Neut # (Auto) 15.7 H, Lymph # (Auto) 0.6 L, [place] # (Auto) 0.8, Eos # (Auto) 0.0, Baso # (Auto) 0.0, Total Counted 100, Neutrophils % (Manual) 89 H, Lymphocytes % (Manual) 5 L, Monocytes % (Manual) 6, Platelet Estimate Normal, Anisocytosis 1+ 03/13/21 05:27: Sodium 146 H, Potassium 4.6, Chloride 113 H, Carbon Dioxide 14 L, Anion Gap 23.6 H, BUN 125 H*, Creatinine 5.90 H D, Estimated Creat Clear 12, Estimated GFR 9 L*, Est GFR ( Amer) 11 L* D, Glucose 157 H, Calcium 7.0 L, Total Bilirubin 0.4, AST 40 D, ALT 14, Alkaline Phosphatase 112, Total Protein 6.0 L, Albumin 2.8 L, Globulin 3.2, Albumin/Globulin Ratio 0.9 L I & O for Last 24 hours: Intake & Output 03/10/21 03/11/21 03/12/21 03/13/21 23:59 23:59 23:59 23:59 Intake Total 2345 / 2410 2304.479 / 2401.479 3654.292 / 3654.292 1177 / 1177 Output Total 1790 / 1805 453 / 478 1180 / 1300 395 / 395 Balance 555 / 605 1851.479 / 4046.844 0377.292 / 2354.292 782 / 782 Weight 73.754 kg 76.43 kg 76.005 kg 79.379 kg Microbiology Reports for the Last 24 Hours: Microbiology 03/07/21 19:32 Blood Blood Culture - Final NO GROWTH AFTER 5 DAYS 03/07/21 19:32 Blood Blood Culture - Final NO GROWTH AFTER 5 DAYS 03/10/21 13:25 Urine,Clean Catch Urine Culture - Final NO GROWTH AFTER 48 HOURS Assessment and Plan (1) Left lower lobe pneumonia Status: Acute Qualifiers: Pneumonia type: due to unspecified organism Qualified Code(s): J18.9 - Pneumonia, unspecified organism Category: Medical Code(s): J18.9 - Pneumonia, unspecified organism (2) SIRS (systemic inflammatory response syndrome) Status: Acute Category: Medical Code(s): R65.10 - Systemic inflammatory response syndrome (SIRS) of non-infectious origin without acute organ dysfunction (3) History of COVID-19 Status: Chronic Category: Medical Code(s): Z86.16 - Personal history of COVID-19 (4) Environmental allergies Status: Chronic Category: Medical Code(s): Z91.09 - Other allergy status, other than to drugs and biological substances (5) Coronary artery disease Status: Chronic Category: Medical Code(s): I25.10 - Atherosclerotic heart disease of [place] coronary artery without angina pectoris (6) Hyperlipemia Status: Chronic Category: Medical Code(s): E78.5 - Hyperlipidemia, unspecified (7) Hypertension Status: Chronic Category: Medical Code(s): I10 - Essential (primary) hypertension (8) Rheumatoid arthritis Status: Chronic Category: Medical Code(s): M06.9 - Rheumatoid arthritis, unspecified The patient's infection will respond to the chosen ABx?: Yes (EMPIRIC THERAPY) Could a more targeted ABx be ordered?: No (SPUTUM CULTURES PENDING)
--- NOTE | 2021-03-13 11:12 | ECG_ITS ---
APPROVED REPORT Exam: Resting ECG HR:145 bpm ECG Measurements Heart Rate 145 AXES QRSd 104 QRS 2 QT 286 T 135 QTc 444 Conclusion Atrial fibrillation with rapid ventricular response ST & T wave abnormality Abnormal ECG Electronically signed by : Zach Hall MD 03/13/2021 21:38:26
--- NOTE | 2021-03-13 11:51 | HMH.PULMPN ---
Internal Medicine - PN: Subj *Date: 03/13/21 *Time: 11:51 Interval history: No acute respiratory vents overnight. Renal function continued to worsen. Exam - Constitutional Constitutional:: Present: no acute distress, comfortable - HENMT Exam HENMT: Present: normocephalic - Eye Exam Eyes:: Present: normal appearance both eyes and related structures - Neck Exam Neck:: Present: normal visual inspection - Respiratory Exam Respiratory:: Present: respiratory distress, rales - Cardiovascular Exam Cardiac:: Present: S1, S2 - GI Exam GI:: Present: soft, no tenderness. Absent: distended - Skin Exam Skin: Present: warm - Neurological Exam Neurological: Absent: alert, awake, normal cognition - Extremities Exam Extremities: Present: no cyanosis, no clubbing, no edema Assessment and Plan (1) Left lower lobe pneumonia Status: Acute Qualifiers: Pneumonia type: due to unspecified organism Qualified Code(s): J18.9 - Pneumonia, unspecified organism Category: Medical Code(s): J18.9 - Pneumonia, unspecified organism (2) SIRS (systemic inflammatory response syndrome) Status: Acute Category: Medical Code(s): R65.10 - Systemic inflammatory response syndrome (SIRS) of non-infectious origin without acute organ dysfunction (3) History of COVID-19 Status: Chronic Category: Medical Code(s): Z86.16 - Personal history of COVID-19 (4) Environmental allergies Status: Chronic Category: Medical Code(s): Z91.09 - Other allergy status, other than to drugs and biological substances (5) Coronary artery disease Status: Chronic Category: Medical Code(s): I25.10 - Atherosclerotic heart disease of [place] coronary artery without angina pectoris (6) Hyperlipemia Status: Chronic Category: Medical Code(s): E78.5 - Hyperlipidemia, unspecified (7) Hypertension Status: Chronic Category: Medical Code(s): I10 - Essential (primary) hypertension (8) Rheumatoid arthritis Status: Chronic Category: Medical Code(s): M06.9 - Rheumatoid arthritis, unspecified - Assessment and plan all Dx Assessment and Plan for all problems:: #Acute hypoxic respiratory failure: #Bilateral pneumonia: #Septic shock: #Diffuse alveolar hemorrhage: 75-year-old no prior respiratory complaints as per chart review, not any inhalers, recent diagnosis of COVID-19 pneumonia, history of rheumatoid arthritis on methotrexate 2.5 mg weekly presented to hospital with worsening respiratory status dizziness febrile episodes and leukocytosis, initiated on sepsis protocol, needing 2 L nasal oxygen supplementation initially progressively worsening ventilator intubation and mechanical ventilatory support and pulmonary was called for further management. History of COVID-19 pneumonia on 12/20, growing gram-negative rods at that point. D-dimer significant elevated at 6.2 along with significant leukocytosis with left shift. Febrile. ABG on admission showed significant acidosis with a pH of 7.14 along with evidence of Predominant metabolic and mild respiratory acidosis and renal dysfunction with a creatinine of 3.1. Chest x-ray done this morning showed bilateral diffuse interstitial changes, significantly worsened prominent in the right side from his most recent chest x-ray from [address] angio from July 2019 showed bilateral pulmonary nodules with minimal subpleural interstitial changes, no follow-up CT imaging available for review at [facility]. . Plan: -Continue sedation with fentanyl and as needed Versed. triglycerides elevated at 995, propofol discontinued. Lipase within normal limits. CT head within normal limits. -Continue mechanical ventilatory support, respiratory status continued to improve along with significant improvement in his chest x-ray. Currently on volume control, PEEP of 8 FiO2 45 volume of 460 and a rate of 24. We have perform SBT this morning however patient became tachycardic and tachypneic. Sputum [place] and bacter
--- NOTE | 2021-03-13 13:33 | HMH.CNCARD ---
History of Present Illness Consult date: 03/13/21 Requesting physician: Jean Solano Consult reason: atrial fibrillation Chief complaint: A. fib with RVR Additional Medical History:: 1. CAD A. CABG 2. A. fib with RVR, 03/13/2021 3. Pulmonary fibrosis with COPD dating back to CT of the chest in 2019 4. Acute renal insufficiency, 02/2021 5. Anemia 6. History of COVID 19 infection, 2020 7. HTN A. Echo, 03/10/2021, 1. Mild biatrial enlargement, normal left ventricular size, mild concentric left ventricular hypertrophy, visually estimated ejection fraction 55% with no regional wall motion abnormality in the obtained views, endocardial surfaces are poorly visualized. 2. Mildly enlarged right ventricle with normal contractility. 3. Mild mitral and tricuspid regurgitation, calculated right ventricular systolic pressure 56 mmHg. 4. No significant pericardial effusion noted. 5. Inferior vena cava is normal size with normal inspiratory collapse. Electronically signed by : Micah Blankenship MD 03/10/2021 19:38:52 8. Hyperlipidemia with markedly elevated triglycerides of 995 on 03/12/2021 9. History of GERD 10. Rheumatoid arthritis with history of methotrexate and prednisone therapy History of present illness: Mr. Ruiz is a 75-year-old male who just recently had an admission due to Covid pneumonia. He has been weak ever since he had Covid and has done a few telehealths with Dr. Solano and Polly Hopper. Over the course of the past few weeks he has been on Amoxicillin, a medrol dose pack, and cefdinir for sinusitis. His last telehealth with Polly was on 03/06/2021 and he had begun vomiting and fell and hit his head. He was given a prescription for Zofran. He says approximately 3 days ago he began feeling like he had the flu. He says he was achy, coughing, nauseated, had one episode of vomiting, he felt dizzy, and he had a headache. He has not been eating and drinking for the past 3 days. He apparently had a fall at home and a neighbor heard him and called the ambulance. They came and found him on the floor and it was unknown how long he was laying there. He was slightly hypoxic, tachycardic, and had a fever. He was transported to the emergency room for further evaluation. The ER doctor was concerned for sepsis and placed him on oxygen and initiated the sepsis protocol. He was started on broad-spectrum antibiotics. He had a chest x-ray showing a left-sided pneumonia and was therefore admitted. This morning he generally feels poorly. He had a documented fever of 105.7 throughout the night. His temperature is now down to 98.2. He started off on 2 L of nasal oxygen, but due to decreasing sats, his oxygen was increased and he is now on 6 L with a sat of 91%. The above per Dr. Solano. Patient shortness of breath and respiratory distress continued to the point of needing intubation mechanical ventilation. Patient was admitted on 03/07/2021 and now this morning on 03/13/2021 patient was noted to have an episode of atrial fibrillation with a rapid ventricular response. Patient was given a loading dose of diltiazem and cardiology consulted for evaluation. After the loading dose of diltiazem and the patient converted back to sinus rhythm. Echocardiogram this admission shows preserved ejection fraction, mild hypertensive changes with elevated right ventricular systolic pressure of 56 mmHg. [facility] History Medical History: Reports:: Chronic Obstructive Pulmonary Disease (COPD), Coronary Artery Disease, Depression, Gastroesophageal Reflux Disease(GERD), Hyperlipidemia, Hypertension, Myocardial Infarction Denies:: Diabetes Mellitus Type 1, Diabetes Mellitus Type 2 *Have you ever received a pneumonia vaccine?: No *Have you received a flu vaccine this season?: Yes Other Medical History: Reports: Anemia, Cataracts, Glaucoma, Sinus Problems, Other (RA, colon polyps, Covid) Other Surgeries: Yes: CABG, Colonoscopy, Other (righ
[2021-03-13 16:05] LABS: Chloride 116 mmol/L (98-107); Sodium 149 mmol/L (136-145)
[2021-03-13 16:06] LABS: Potassium 5.3 mmoL/L (3.5-5.1)
[2021-03-13 16:08] LABS: Creatinine Clearance Estimated 11 mL/min (50-200); Estimated Glomerular Filt Rate 9 ml/min (>60); GFR (African American) 11 ML/MIN (>60)
[2021-03-13 16:09] LABS: Anion Gap 28.3 mEq/L (5-15); Calcium 6.9 mg/dl (8.4-10.2); Glucose 177 mg/dl (74-100)
[2021-03-13 16:11] LABS: Carbon Dioxide 10 mmol/L (22.0-30.0)
[2021-03-13 17:09] LABS: Blood Urea Nitrogen 119 mg/dl (9-20)
[2021-03-14 18:08] LABS: Cytoplasmic (C-ANCA) <1:20 titer (Neg:<1:20); Perinuclear (P-ANCA) <1:20 titer (Neg:<1:20)
[2021-03-15 20:18] LABS: Antiproteinase 3 (PR-3) Abs <3.5 U/mL (0.0-3.5)
--- NOTE | 2021-03-16 18:37 | HMH.DCSUM ---
General - General Admission date:: 03/07/21 <Jean Solano - 05/15/21 17:45> 03/07/21 <Herminia Araujo - 03/16/21 19:01> Discharge date: 03/13/21 <Herminia Araujo - 03/16/21 19:01> HPI HPI: Mr. Ruiz is a 75-year-old male who just recently had an admission due to Covid pneumonia. He has been weak ever since he had Covid and has done a few telehealths with Dr. Solano and Polly Hopper. Over the course of the past few weeks he has been on Amoxicillin, a medrol dose pack, and cefdinir for sinusitis. His last telehealth with Polly was on 03/06/2021 and he had begun vomiting and fell and hit his head. He was given a prescription for Zofran. He says approximately 3 days ago he began feeling like he had the flu. He says he was achy, coughing, nauseated, had one episode of vomiting, he felt dizzy, and he had a headache. He has not been eating and drinking for the past 3 days. He apparently had a fall at home and a neighbor heard him and called the ambulance. They came and found him on the floor and it was unknown how long he was laying there. He was slightly hypoxic, tachycardic, and had a fever. He was transported to the emergency room for further evaluation. The ER doctor was concerned for sepsis and placed him on oxygen and initiated the sepsis protocol. He was started on broad-spectrum antibiotics. He had a chest x-ray showing a left-sided pneumonia and was therefore admitted. This morning he generally feels poorly. He had a documented fever of 105.7 throughout the night. His temperature is now down to 98.2. He started off on 2 L of nasal oxygen, but due to decreasing sats, his oxygen was increased and he is now on 6 L with a sat of 91%. <Herminia Araujo - 03/16/21 19:01> Hospital Course Hospital Course: The patient generally did not feel well. His chest x-ray showed a left lung infiltrate, his head CT showed nothing acute, and his pelvic x-ray showed arthritis but no acute injury. He was admitted and started on sepsis protocol. He was started on vancomycin and Zosyn as well as IV fluids and his white blood cell count did improve slightly. His temperature came down. His Covid admission was 2 months prior and he had had 3 negative tests since that time. Dr. Solano felt he met the SIRS criteria but not sepsis. He did get the sepsis fluid bolus, but still seemed dry and mildly tachycardic, therefore his maintenance fluids were increased. He was continued on broad-spectrum antibiotics pending his cultures. By 03/09/2021 he become restless and agitated and did not tolerate a Ventimask. He was switched to Vapotherm but remained quite anxious. He was given a dose of Ativan at bedtime which did help ease his anxiety. He felt a little less short of breath and was tolerating the Vapotherm and his oxygen sats were maintaining in the low 90s. He was continued on Ativan as needed for anxiety. His white blood cell count did increase and it was felt this was due to steroids. His creatinine also increased, therefore his renal functions were monitored. He had a repeat chest x-ray on 03/10/2021 which showed extensive bilateral airspace disease substantially progressed on the right. Findings appeared most compatible with multifocal pneumonia. He also had small bilateral pleural effusions. The patient developed progressive respiratory distress progressing from Vapotherm to BiPAP and was finally intubated. Pulmonology was consulted. His white blood cell count increased to 20,000 and his creatinine increased to 3.1. An echo was ordered and showed an EF of 55% and an elevated right ventricular systolic pressure 56 mmHg. Pulmonology saw the patient. His D-dimer was elevated therefore venous Dopplers were ordered. He had a CT of the head which was within normal limits. His ABG showed hypercarbic respiratory failure immediately post intubation. He was continued on vancomycin and his Zosyn was changed to cefepime. Given the patien
[2021-03-16 20:08] LABS: Myeloperoxidase Antibody <9.0 U/mL (0.0-9.0)
[2021-06-11 09:02] LABS: Antinuclear Antibodies (ANA) NEGATIVE
[2021-06-20 08:50] LABS: Cell Count + Differential, BAL SEE COMMENT.
[2021-06-20 08:51] LABS: Cell Count + Differential, BAL SEE COMMENT.
== END 2021-03-13 19:14 | disposition short-term general hospital (02) | DRG 871 ==
LOC: ER 19:36 → 2ND 19:59
PROVIDERS: Internal Medicine Pulmonary Disease; Admitting Provider Family Medicine; Emergency Provider Emergency Medicine; PCP Family Medicine; Visit Provider Family Medicine
PROC: 0B9L8ZX Drainage of Left Lung, Via Natural or Artificial Opening Endoscopic, Diagnostic (ICD-10-PCS; principal; 2021-03-10 11:00)
DX: A41.9 Sepsis, unspecified organism (principal); J18.9 Pneumonia, unspecified organism; J96.01 Acute respiratory failure with hypoxia; R65.21 Severe sepsis with septic shock; J44.1 Chronic obstructive pulmonary disease with (acute) exacerbation; J44.0 Chronic obstructive pulmonary disease with (acute) lower respiratory infection; N17.9 Acute kidney failure, unspecified; E87.2 Acidosis; E87.0 Hyperosmolality and hypernatremia; Z20.822 Contact with and (suspected) exposure to COVID-19; Z86.16 Personal history of COVID-19; I10 Essential (primary) hypertension; F17.210 Nicotine dependence, cigarettes, uncomplicated; E78.5 Hyperlipidemia, unspecified; F17.220 Nicotine dependence, chewing tobacco, uncomplicated; I25.10 Atherosclerotic heart disease of native coronary artery without angina pectoris; M06.9 Rheumatoid arthritis, unspecified; E87.5 Hyperkalemia; D64.9 Anemia, unspecified; I48.0 Paroxysmal atrial fibrillation
CPT/HCPCS: 31622; 31500; 94002; 36415; 70450; 71045; 72170; 80048; 80053; 80202; 81001; 82803; 83516; 83520; 83605; 83615; 83690; 84478; 85007; 85014; 85018; 85025; 85048; 85049; 85378; 86038; 86140; 86225; 86235; 86256; 87040; 87070; 87086; 87102; 87116; 87186; 87205; 87206; 87220; 87449; 88112; 88312; 89051; 93005; 93306; 93970; 94003; 94640; 94660; 94760; 96365; 96367; 96375; 99152; 99284; C9803; J2405; J2543; J2704; J3370; U0003; U0005